=== PATIENT | female | born 1990 | race Caucasian/White ===

== ENCOUNTER 2018-01-28 01:20 | Observation (INO) | payer BC, SELFPAY ==
[2018-01-28] VITALS (15 sets, daily range): BP systolic 115–143; BP diastolic 77–94; PULSE 73–110; RESP 16–24; TEMP 36.2–36.8; O2SAT 96–100; BMI 22.1; BMI 21.6
--- NOTE | 2018-01-28 | GASB_PTH ---
PATIENT: CARMEN AQUINO LOC: MS2 U#:[id number] AGE/SX: 27/F [place] [facility] [id number]/28/[address]: Dr. Julio Fontaine MD : 1990 BED: 1 DIS: 01/30/2018 SPEC #: [id number] RECD: 01/28/18 13:35 STATUS: DEMETRICE RELaura #: [id number] MAXINE: 01/28/18 00:[address]: Rg Fletcher DEPT: SURGICAL PATHOLOGY RECD BY: Manoj Ramirez ENTERED: 01/28/18 13:36 SP TYPE: Gastric Bx OTHR DR: MD Dr. Padmini Radford MD Dr. Nicholas F Kotsonis, MD Dr. Saksham Sulove, MD Tissues: Gastric mucous membrane Procedures: Special Stain Group II Surgery Specimen Level IV Alcian Blue/PAS (control) Comments: @ Ordering doctor for SUIV edited from to @ by HEMAL at 01/28/18 1544 @ Submitting doctor edited from to @ by RGOOD at 01/28/18 1544 HEADER OPERATION: EGD ([facility] [place]) PRE-OP DIAGNOSIS: Epigastric pain TISSUE SUBMITTED: GE junction biopsy MICROSCOPIC DIAGNOSIS GE junction, biopsy: A fragment of gastroesophageal mucosa with chronic inflammation. Intestinal metaplasia (goblet cell metaplasia) is not identified. TAMEKA:michelle 01/29/18 COMMENT Alcian blue/PAS stain with matched control is used in the evaluation of the specimen. MICROSCOPIC DESCRIPTION Slides are reviewed. GROSS DESCRIPTION Received in fixative is one container labeled with the patient's name and designated GE junction biopsy. The specimen consists of one irregular fragment of light nelson soft tissue that measures 0.3 x 0.2 x 0.1 cm. The specimen is totally submitted in one cassette. / TAMEKA:michelle 01/28/18 TC:3 CPT: 33963, 23869
[2018-01-28 01:38] LABS: Absolute Lymphocyte Count 1.55 X10^3/ul (0.83-4.51); Absolute Neutrophil Count 7.6 X10^3/uL (2.0-7.7); Basophil# 0.03 X10^3/uL; Basophil% 0.3 % (0-1); Eosinophil# 0.02 X10^3/uL; Eosinophils% 0.2 % (0-5); Hematocrit 42.4 % (37-47); Hemoglobin 15.1 g/dl (12.0-15.0); Lymphocyte # 1.55 X10^3/ul (4.0); Lymphocyte % 15.9 % (19-41); Mean Corp Hgb Conc 35.6 g/gl (32-36); Mean Corpuscular Hgb 31.1 pg (27.0-32.0); Mean Corpuscular Volume 87.2 fL (81-99); Mean Platelet Vol. 9.3 fl (6.2-12.0); Monocyte# 0.59 X10^3/uL; Neutrophil # 7.56 X10^3/uL (2.7-7.7); Neutrophil % 77.5 % (47-70); POSITIVE COUNT NO; POSITIVE DIFFERENTIAL NO; POSITIVE MORPHOLOGY NO; Platelet Count 364 K/mm3 (150-450); RBC Distribution Width CV 12.7 % (11.6-14.6); RBC Distribution Width SD 39.7 fl (35.1-43.9); Red Blood Count 4.86 M/mm3 (4.2-5.4); White Blood Count 9.8 K/mm3 (4.4-11.0)
[2018-01-28 01:51] LABS: Anion Gap 15 (5-15); BUN 8 mg/dL (7-18); BUN/Creat Ratio 7.4 RATIO (10-20); Calcium,Total 9.3 mg/dL (8.5-10.1); Chloride 103 mmol/L (98-107); Creatinine, Serum 1.08 mg/dL (0.55-1.02); EST Glomerular Filtration Rate 65 mL/min (>60); Est Glom Filt Rate - Afr Amer 79 mL/min (>60); Estimated Creatinine Clearance 60.47 ml/min; Glucose 85 mg/dL (74-106); Potassium 2.9 mmol/L (3.5-5.1); Sodium Level 136 mmol/L (136-145)
[2018-01-28 01:56] LABS: Pregnancy, Serum, hCG Quali. NEGATIVE Negative (0-9 Nonpreg)
--- NOTE | 2018-01-28 01:57 | CT_ITS ---
STUDY: CT ABDOMEN AND PELVIS WITH CONTRAST REASON FOR EXAM: Female, 27 years old. UPPER ABD PAIN X 4 MONTHS, INCREASED PAIN ON FRIDAY, N/V, 30 POUND WEIGHT LOSS IN 4 MONTHS, NEG PREG TEST RADIATION DOSAGE (If Supplied By Facility): CTDIvol = ( 7.64 ) mGy, DLP = ( 237.69 ) mGycm TECHNIQUE: Transaxial images were obtained from the dome of the diaphragm to the symphysis pubis without oral contrast. 100ML ml of Isovue 300 contrast was administered. Sagittal and coronal images were reconstructed. Individualized dose optimization techniques were used for this CT. COMPARISON: None. FINDINGS: The visualized lung bases are unremarkable. The visualized portions of the heart are within normal limits. Normal liver. Normal gallbladder and extrahepatic biliary system. Normal spleen. Normal pancreas. Normal bilateral adrenal glands. Normal right kidney. Normal left kidney. Normal visualized stomach. Normal small intestine. Normal colon. There is non-visualization of the appendix. Normal abdominal aorta. Normal inferior vena cava. Normal retroperitoneum. Normal urinary bladder. Normal abdominal wall. Normal osseous structures. CT/Abdomen/Pelvis W IV Cont ONLY IMPRESSION: Normal enhanced CT of the abdomen and pelvis. Electronically Signed: Rio Torres MD at 3:22 EDT Tel , Service support ,
[2018-01-28] MEDS: 0.9% Normal Saline 1,000 ML 999 ML IV (02:10)
[2018-01-28] MEDS: Ondansetron 4 MG/2 ML Vial IV ×3 (02:10→21:53)
[2018-01-28] MEDS: Morphine 4 MG/ML Syringe IV (02:11)
[2018-01-28 02:13] LABS: Lipase 710 U/L (73-393)
[2018-01-28 02:16] LABS: AST(SGOT) 18 U/L (15-37); Alanine Aminotransfer ALT/SGPT 38 U/L (13-56); Albumin, Serum 4.3 g/dL (3.2-5.0); Alkaline Phosphatase 46 U/L (45-117); Bilirubin, Direct 0.35 mg/dL (0.00-0.30); Protein, Total 8.3 g/dL (6.4-8.2)
[2018-01-28 02:51] LABS: Bacteria 0 SEEN /hpf (None Seen); Mucous, Urine 0 SEEN /hpf (<or=2+); Red Blood Cells-Urine 0 SEEN /hpf (0-5)
[2018-01-28 02:52] LABS: Color, Urine Yellow (Yellow); Glucose, Dipstick Normal (Normal); Leukocyte Esterase-Dipstick 25 /ul (Negative); Nitrite-Dipstick Negative (Negative); Occult Blood-Urine 10 /ul (Negative); Protein-Dipstick 15 mg/dl (Negative); Urine Bilirubin Dipstick Negative (Negative); Urine Clarity Clear (Clear); Urine Urobilinogen Normal (Normal)
[2018-01-28 03:08] LABS: Ketone-Dipstick 150 mg/dl (Negative)
[2018-01-28 03:09] LABS: Squamous Epithelial Cells - UA 0-5 SEEN /hpf (5-10); White Blood Cells 0-5 SEEN /hpf (0-5)
--- NOTE | 2018-01-28 03:09 | NURSING ---
notified of ketones in urine.
--- NOTE | 2018-01-28 03:37 | ED.VISSUMM ---
- ER Visit Summary Date of Service: 01/28/18 Chief Complaint: Abdominal pain History of Present Illness: The patient is a 27 F who presents with abdominal pain. It initially began 4 months ago. She complains of burning epigastric abdominal pain with radiation up to her chest burning in her throat. She has been on omeprazole daily. She was also placed on Carafate by her primary care physician. She was recently seen at [place] emergency department and was given a GI cocktail and continued on Carafate. However over the past 5 days her pain has become severe she has also developed nausea and vomiting in the last 2 days. She reports about 4 episodes of nonbloody nonbilious emesis per day. She denies diarrhea or urinary symptoms. Physical Examination: Heart rate 106 respiratory rate 24 vitals otherwise unremarkable Moist mucous membranes Patient does appear uncomfortable Heart is regular rhythm tachycardia Lungs are clear Abdomen soft nondistended she has epigastric abdominal tenderness without guarding without rebound Alert Test Results: Labs notable for potassium 2.9. CO2 18. Total bilirubin 1.5 and direct bilirubin 0.35. Lipase is 710. Urinalysis shows ketones. CT of the abdomen and pelvis is normal. Normal gallbladder. Emergency Department Course and Treatment: Given that patient has not been improving with usual treatment and has significant reproducible epigastric abdominal tenderness I did pursue further workup including laboratory studies and CT imaging. She was treated with IV fluids morphine and Zofran. Potassium was replaced IV. She does have signs and symptoms suggestive of gastritis. Her laboratory abnormalities may be related to dehydration and decreased oral intake. She does not drink alcohol and is not not on medications known for causing pancreatitis. I do feel she should undergo further evaluation and IV hydration and symptom control. Patient was discussed with hospitalist and will be admitted. Treatment Plan: [] Disposition: Admit Impression: Epigastric abdominal pain, suspect gastritis Dehydration Hypokalemia Elevated lipase This note was generated with [employer] dictation software. It may contain incorrect words, spelling, and punctuation that were not noted in review of the chart prior to signing ED Disposition - Plan for ED Patient: Chief Complaint: Abd Pain Referrals: Everett Boo [Primary Care Provider] -
--- NOTE | 2018-01-28 03:38 | PCM.HP.STD ---
Problem List (1) Abdominal pain Status: Acute Qualifiers: Abdominal location: epigastric Qualified Code(s): R10.13 - Epigastric pain (2) Pancreatitis Status: Acute Qualifiers: Chronicity: acute Pancreatitis type: unspecified pancreatitis type Acute pancreatitis complication: unspecified Qualified Code(s): K85.90 - Acute pancreatitis without necrosis or infection, unspecified (3) Anxiety and depression Status: Chronic (4) GERD (gastroesophageal reflux disease) Status: Chronic Qualifiers: Esophagitis presence: esophagitis presence not specified Qualified Code(s): K21.9 - Gastro-esophageal reflux disease without esophagitis History of Present Illness Date of Admission: 01/28/18 Chief Complaint: Abdominal pain, N/V The patient is a 27 y/o F w/ PMHx: Anxiety and Depression, GERD who presents to the [facility] ED on 01/28/18 with history of ongoing reflux symptoms and epigastric discomfort x 1 month, progressively worsening despite PPI, sucralfate addition per her PCP, more severe over the last 4 days with associated nausea, emesis as well as 30 lb weight loss since its onset. Symptoms are worse with food intake attempts. In the ED work-up included T 98, heart rate 110, BP 124/81, respiratory rate 24, 97% on room air, CBC with WBC 9.8, hemoglobin 15.1, platelet 364 without market shift, CMP with potassium 2.9, carbon dioxide 18, BUN/creatinine 8/1.08, T bilirubin 1.5, D bilirubin 0.35, AST/ALT 18/38, lipase 710, UA no marked appearing, CT A/P with IV contrast without acute findings. In the ED the patient administered 40 mEq IV potassium, morphine, zofran and NS. She reports that she had upcoming endoscopy planned per but unclear physician (). Past Medical History Past Medical History (Chronic Problems): Chronic Problems Anxiety and depression (Chronic) GERD (gastroesophageal reflux disease) (Chronic) Allergies No Known Allergies Allergy (Verified 01/28/18 01:26) Home Medications: Ambulatory Orders Medication Instructions Recorded Lorazepam [Ativan] 0.5 mg PO PRN PRN 01/28/18 Omeprazole 40 mg PO BID 01/28/18 Ondansetron [Zofran Odt] 4 mg PO Q8H PRN PRN 01/28/18 Sucralfate 1 gm PO 4X/DAY 01/28/18 buPROPion SR [Wellbutrin SR (150mg 450 mg PO DAILY 01/28/18 tablets)] Surgical History: no surgical history Psychiatric History: Anxiety, Depression FRONT DESK MONITOR History: No pertinent FRONT DESK MONITOR history Lives: Spouse/ Significant Other Smoking Status: Never smoker Tobacco Use: Non-smoker Alcohol: None Drugs: None - *Family History Maternal History Items: - - Patient notes a maternal and paternal family history of hypertension, hyperlipidemia and diabetes. Paternal History Items: - - Patient notes a maternal and paternal family history of hypertension, hyperlipidemia and diabetes. Review of Systems Constitutional: Reports: Anorexia, Malaise, Weakness, Weight Change, Fatigue. Denies: Chills, Fever HEENT: Denies: Head Aches, Sinus Congestion, Sinus Drainage Cardiovascular: Denies: Chest Pain, Palpitations Respiratory: Denies: Cough, Shortness of breath at rest, Sputum production Gastrointestinal: Reports: Abdominal Pain, Nausea, Vomiting Genitourinary: Denies: Dysuria Musculoskeletal: Denies: Joint Pain, Joint Tenderness Skin: Denies: Rash, Wounds Neurological: Denies: Numbness, Tingling, Focal weakness Psychiatric: Reports: Anxiety, Depression. Denies: Homicidal Ideations, Suicidal Ideations Hematologic/ Lymphatic: Denies: Easy Bruising, Easy Bleeding VTE Information - Inpt Only VTE Present on Admission: No VTE Mechan Device Prophylaxis: SCD's VTE Pharm Prophylaxis ordered?: No Reason prophylaxis not ordered:: Treatment Not Indicated Patient Problems: Active and Suspected Problems Abdominal pain (Acute) Pancreatitis (Acute) Subjective: Seated upright in the ED bed, NAD. Objective: Physical Examination: General: awake, alert, oriented x 3 and cooperative, seated upright in the ED bed in no apparent distress, fatigued appearance. Skin: normal color, turgor, no icterus, cyanosis. HEENT: AT/NC, EOMI, PERRLA, dry MM, no carotid bruits or JVD noted. Lungs: CTA bilaterally, moderate effort, mild decrease BL bases, no rales, ronchi or wheezing. Heart: Regular rate and rhythm; no gallop, rub audible. Abdomen: soft, no RUQ TTP, notable epigastric TTP, ND, hyperactive BS, no HSM. Extremities: no cyanosis, clubbing, or edema. Neurological: patient awake, alert, oriented x 3; cognitive function intact; pupils equally reactive to light and accomodation; cranial nerves II-XII grossly normal, moving all 4 extremities, no focal deficits, strength mildly globally decreased. Psychiatric: affect appears normal, no acute evidence of depressive or anxiety feelings. - Physical Exam Vital Signs Temp Pulse Resp BP Pulse Ox 98.0 F 96 18 126/88 H 96 01/28/18 01:21 01/28/18 02:51 01/28/18 02:51 01/28/18 02:51 01/28/18 02:51 Oxygen Delivery Method Room Air Weight: 106 lb 0.677 oz Body Mass Index (BMI) 22.1 Laboratory Tests Past 24 Hrs 01/28/18 01/28/18 01/28/18 01:30 01:30 01:30 WBC 9.8 RBC 4.86 Hgb 15.1 H Hct 42.4 MCV 87.2 MCH 31.1 MCHC 35.6 RDW 12.7 RDW Differential 39.7 Plt Count 364 MPV 9.3 Immature Gran % (Auto) 0.100 Neut % (Auto) 77.5 H Lymph % (Auto) 15.9 L Shannon % (Auto) 6.0 Eos % (Auto) 0.2 Baso % (Auto) 0.3 Absolute Neuts (auto) 7.6 Absolute Lymphs (auto) 1.55 Total Counted Not Reportable Sodium 136 Potassium 2.9 L Chloride 103 Carbon Dioxide 18.0 L Anion Gap 15 BUN 8 Creatinine 1.08 H Estim Creat Clear Calc 60.47 Est GFR (MDRD) Af Amer 79 Est GFR (MDRD) Non-Af 65 BUN/Creatinine Ratio 7.4 L Glucose 85 Calcium 9.3 Total Bilirubin Direct Bilirubin AST ALT Alkaline Phosphatase Total Protein Albumin Globulin Lipase Serum , Qual NEGATIVE Urine Color Urine Clarity Urine pH Ur Specific [place] Urine Protein Urine Glucose (UA) Urine Ketones Urine Occult Blood Urine Nitrite Urine Bilirubin Urine Urobilinogen Ur Leukocyte Esterase Urine RBC Urine WBC Ur Squamous Epith Cells Urine Bacteria Urine Mucus 01/28/18 01/28/18 01/28/18 01:30 01:30 02:45 WBC RBC Hgb Hct MCV MCH MCHC RDW RDW Differential Plt Count MPV Immature Gran % (Auto) Neut % (Auto) Lymph % (Auto) Shannon % (Auto) Eos % (Auto) Baso % (Auto) Absolute Neuts (auto) Absolute Lymphs (auto) Total Counted Sodium Potassium Chloride Carbon Dioxide Anion Gap BUN Creatinine Estim Creat Clear Calc Est GFR (MDRD) Af Amer Est GFR (MDRD) Non-Af BUN/Creatinine Ratio Glucose Calcium Total Bilirubin 1.50 H Direct Bilirubin 0.35 H AST 18 ALT 38 Alkaline Phosphatase 46 Total Protein 8.3 H Albumin 4.3 Globulin 4.0 Lipase 710 H Serum , Qual Urine Color Yellow Urine Clarity Clear Urine pH 7.0 Ur Specific [place] 1.010 Urine Protein 15 H Urine Glucose (UA) Normal Urine Ketones 150 H Urine Occult Blood 10 H Urine Nitrite Negative Urine Bilirubin Negative Urine Urobilinogen Normal Ur Leukocyte Esterase 25 H Urine RBC 0 SEEN Urine WBC 0-5 SEEN Ur Squamous Epith Cells 0-5 SEEN Urine Bacteria 0 SEEN Urine Mucus 0 SEEN Assessment/Plan All Active Problems Abdominal pain (Acute) Pancreatitis (Acute) The patient is a 27 y/o F w/ PMHx: Anxiety and Depression, GERD who presents to the [facility] ED on 01/28/18 with history of ongoing reflux symptoms and epigastric discomfort x 1 month, progressively worsening despite PPI, sucralfate addition per her PCP, more severe over the last 4 days with assocaited nausea, emesis as well as 30 lb weight loss since its onset. (1) Acute mild pancreatitis w/ abdominal pain, N/V w/ Elevated T Bilirubin/D Bilirubin, Suspected primarily secondary to Gastritis, Possible Ulcer: ED work-up included T 98, heart rate 110, BP 124/81, respiratory rate 24, 97% on room air, CBC with WBC 9.8, hemoglobin 15.1, platelet 364 without market shift, CMP with potassium 2.9, carbon dioxide 18, BUN/creatinine 8/1.08, T bilirubin 1.5, D bilirubin 0.35, AST/ALT 18/38, lipase 710, UA no marked appearing, CT A/P with IV contrast without acute findings. Will admit to [facility], maintain on aggressive IVFs, NPO, IV PPI, IV/po pain control, trend CMP and lipase. CT A/P without acute findings; however, not best modality for GB thus will obtain RUQ US, FLP. Surgery consulted for consideration endoscopy if RUQ US unremarkable. (2) Hypokalemia: Admission K+ 2.9, supplementation given, repeat level in AM. (3) Anxiety and Depression: Continue home regimen ativan and well butrin. (4) DVT Prophylaxis: TEDs, low risk, ambulation. Code Visit OBSV E&M: 51477 Initial observation care L3
[2018-01-28] MEDS: Ketorolac 30 MG/ML Syringe IV (03:40)
--- NOTE | 2018-01-28 03:42 | ED.DCSUM_ITS ---
- ER Visit Summary Date of Service: 01/28/18 Chief Complaint: Abdominal pain History of Present Illness: The patient is a 27 F who presents with abdominal pain. It initially began 4 months ago. She complains of burning epigastric abdominal pain with radiation up to her chest burning in her throat. She has been on omeprazole daily. She was also placed on Carafate by her primary care physician. She was recently seen at [place] emergency department and was given a GI cocktail and continued on Carafate. However over the past 5 days her pain has become severe she has also developed nausea and vomiting in the last 2 days. She reports about 4 episodes of nonbloody nonbilious emesis per day. She den ies diarrhea or urinary symptoms. Physical Examination: Heart rate 106 respiratory rate 24 vitals otherwise unremarkable Moist mucous membranes Patient does appear uncomfortable Heart is regular rhythm tachycardia Lungs are clear Abdomen soft nondistended she has epigastric abdominal tenderness without guarding without rebound Alert Test Results: Labs notable for potassium 2.9. CO2 18. Total bilirubin 1.5 and direct bilirubin 0.35. Lipase is 710. Urinalysis shows ketones. CT of the abdomen and pelvis is normal. Normal gallbladder. Emergency Department Course and Treatment: Given that patient has not been improving with usual treatment and has significant reproducible epigastric abdominal tenderness I did pursue further workup including laboratory studies and CT imaging. She was treated with IV fluids morphine and Zofran. Potassium was replaced IV. She does have signs and symptoms suggestive of gastritis. Her laboratory abnormalities may be related to dehydration and decreased oral intake. She does not drink alcohol and is not not on medications known for causing pancreatitis. I do feel she should undergo further evaluation and IV hydration and symptom control. Patient was discussed with hospitalist and will be admitted. Treatment Plan: [] Disposition: Admit Impression: Epigastric abdominal pain, suspect gastritis Dehydration Hypokalemia Elevated lipase This note was generated with [employer] dictation software. It may contain incorrect words, spelling, and punctuation that were not noted in review of the chart prior to signing ED Disposition - Plan for ED Patient: Chief Complaint: Abd Pain Referrals: Everett Boo [Primary Care Provider] -
--- NOTE | 2018-01-28 04:15 | US_ITS ---
STUDY: ABDOMINAL ULTRASOUND - RIGHT UPPER QUADRANT REASON FOR VISIT: Female, 27 years old. 4 month history of sharp epigastric pain. TECHNIQUE: Ultrasound evaluation of the right upper quadrant was performed with real-time and static lima-scale imaging. TECHNICAL QUALITY: Adequate. COMPARISON: Comparison is made with prior CT scan abdomen done earlier in the day. FINDINGS: Liver: The liver measures 14.6 cm. There is normal echogenicity of the liver. The bile ducts are within normal limits. There is hepatic color flow. The direction of portal flow is hepatopetal. There is no demonstrated mass lesion. Gallbladder: Normal distended gallbladder. The gallbladder wall measures 2.5 mm. There is a negative sonographic Trammell's sign. There is no pericholecystic fluid. There are no gallstones. Common Bile Duct (C.B.D.): The common bile duct measures 4.7 mm. Pancreas: Normal size of the head, body and tail of the pancreas. There is normal echogenicity of the pancreas. There is no demonstrated pancreatic mass or cyst. Right Kidney: Normal size of the right kidney. The right kidney measures 10.1 cm x 4.6 x 3.7 cm. Normal renal cortex. The right cortex measures 1.2 cm. There is no demonstrated renal mass or cyst. There is no right hydronephrosis. US/Gallbladder IMPRESSION: Normal right upper quadrant ultrasound examination. Electronically Signed: Andrea Ordoñez MD at 8:50 EDT Tel [phone], Service support ,
[2018-01-28] MEDS: 0.9% Normal Saline 1,000 ML 150 ML IV (04:57)
[2018-01-28] MEDS: Sucralfate 1 GM Tablet PO ×4 (06:18→21:27)
[2018-01-28 06:57] LABS: Absolute Lymphocyte Count 1.45 X10^3/ul (0.83-4.51); Absolute Neutrophil Count 4.5 X10^3/uL (2.0-7.7); Basophil# 0.02 X10^3/uL; Basophil% 0.3 % (0-1); Eosinophil# 0.04 X10^3/uL; Eosinophils% 0.6 % (0-5); Hematocrit 34.3 % (37-47); Hemoglobin 11.6 g/dl (12.0-15.0); Lymphocyte # 1.45 X10^3/ul (4.0); Lymphocyte % 22.4 % (19-41); Mean Corp Hgb Conc 33.8 g/gl (32-36); Mean Corpuscular Hgb 30.4 pg (27.0-32.0); Mean Corpuscular Volume 89.8 fL (81-99); Mean Platelet Vol. 9.3 fl (6.2-12.0); Monocyte# 0.48 X10^3/uL; Monocyte% 7.4 % (0-10); Neutrophil # 4.49 X10^3/uL (2.7-7.7); Neutrophil % 69.3 % (47-70); Platelet Count 234 K/mm3 (150-450); RBC Distribution Width CV 12.9 % (11.6-14.6); RBC Distribution Width SD 41.6 fl (35.1-43.9); Red Blood Count 3.82 M/mm3 (4.2-5.4); White Blood Count 6.5 K/mm3 (4.4-11.0)
[2018-01-28 07:02] LABS: POSITIVE COUNT NO; POSITIVE DIFFERENTIAL NO; POSITIVE MORPHOLOGY NO
[2018-01-28 07:32] LABS: Cholesterol 114 mg/dL (200); High Density Lipoprotein 47 mg/dL; Triglycerides 78 mg/dL; Very Low Density Lipoprotein 16 mg/dL (5-40)
[2018-01-28 07:46] LABS: AST(SGOT) 13 U/L (15-37); Alanine Aminotransfer ALT/SGPT 26 U/L (13-56); Albumin, Serum 2.8 g/dL (3.2-5.0); Alkaline Phosphatase 32 U/L (45-117); Anion Gap 12 (5-15); BUN 5 mg/dL (7-18); BUN/Creat Ratio 6.3 RATIO (10-20); Chloride 110 mmol/L (98-107); EST Glomerular Filtration Rate 93 mL/min (>60); Est Glom Filt Rate - Afr Amer 112 mL/min (>60); Estimated Creatinine Clearance 82.31 ml/min; Globulin 2.9 g/dL (2.2-4.2); Glucose 69 mg/dL (74-106); Lipase 476 U/L (73-393); Potassium 3.5 mmol/L (3.5-5.1); Protein, Total 5.7 g/dL (6.4-8.2); Sodium Level 139 mmol/L (136-145)
--- NOTE | 2018-01-28 08:11 | NURSING ---
pt to ultrasound via w/ch
--- NOTE | 2018-01-28 10:44 | PCM.CONS.GEN ---
Problem List (1) Abdominal pain Status: Acute Qualifiers: Abdominal location: epigastric Qualified Code(s): R10.13 - Epigastric pain Reason for Consult Date of Consultation: 01/28/18 Reason for Consultation: Epigastric pain History of Present Illness: The patient is a 27 year old F who came in with epigastric pain. She has been having this pain for 4 months. She describes the pain is in her epigastric region. She has not been eating much and she has lost 30 pounds in the last 4 months. She is not having any right upper quadrant pain there is no radiation to the back. She is having nausea and vomiting as she has been vomiting a lot. She describes her vomitus is bilious. Past Medical History Past Medical History (Chronic Problems): Chronic Problems Anxiety and depression (Chronic) GERD (gastroesophageal reflux disease) (Chronic) Allergies No Known Allergies Allergy (Verified 01/28/18 01:26) Home Medications: Ambulatory Orders Medication Instructions Recorded Lorazepam [Ativan] 0.5 mg PO PRN PRN 01/28/18 Norgestimate-Ethinyl Estradiol 1 tab PO DAILY 01/28/18 [Tri-Linyah Tablet] Omeprazole 40 mg PO BID 01/28/18 Ondansetron [Zofran Odt] 4 mg PO Q8H PRN PRN 01/28/18 Sucralfate 1 gm PO 4X/DAY 01/28/18 buPROPion SR [Wellbutrin SR (150mg 450 mg PO DAILY 01/28/18 tablets)] Surgical History: no surgical history Psychiatric History: Anxiety, Depression 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 Paternal History Items: - - Patient notes a maternal and paternal family history of hypertension, hyperlipidemia and diabetes. Review of Systems Constitutional: Reports: Anorexia. Denies: Fever HEENT: Denies: Difficulty Swallowing Cardiovascular: Denies: Chest Pain Respiratory: Denies: Cough Gastrointestinal: Reports: Abdominal Pain, Nausea, Vomiting Genitourinary: Denies: Dysuria Musculoskeletal: Denies: Joint Tenderness Skin: Denies: Jaundice Neurological: Denies: Headaches, Incoordination Hematologic/ Lymphatic: Denies: Adenopathy, Anemia Patient Problems: Active and Suspected Problems Abdominal pain (Acute) Pancreatitis (Acute) - Physical Exam General: Alert, Oriented x3, Cooperative HEENT: Atraumatic Neck: No JVD Lungs: Normal air movement Cardiovascular: Regular rate, Regular Rhythm Abdomen: Soft, Non-Distended, Tender - Tender in the epigastric region Extremities: No clubbing Skin: No rashes Musculoskeletal: No Muscle Wasting Neurological: Cranial nerves II-XII grossly intact Psych/Mental Status: Normal Affect, Appropriate Vital Signs Temp Pulse Resp BP Pulse Ox 98.3 F 75 16 132/87 H 100 01/28/18 04:34 01/28/18 04:34 01/28/18 04:34 01/28/18 04:34 01/28/18 04:34 Oxygen Delivery Method Room Air Weight: 106 lb 14.787 oz Body Mass Index (BMI) 21.6 Intake and Output for Last 24 Hours 01/26/18 01/27/18 01/28/18 23:59 23:59 23:59 Intake Total 302 / 302 Balance 302 / 302 Laboratory Tests Past 24 Hrs 01/28/18 01/28/18 01/28/18 01:30 01:30 01:30 WBC 9.8 RBC 4.86 Hgb 15.1 H Hct 42.4 MCV 87.2 MCH 31.1 MCHC 35.6 RDW 12.7 RDW Differential 39.7 Plt Count 364 MPV 9.3 Immature Gran % (Auto) 0.100 Neut % (Auto) 77.5 H Lymph % (Auto) 15.9 L [place] % (Auto) 6.0 Eos % (Auto) 0.2 Baso % (Auto) 0.3 Absolute Neuts (auto) 7.6 Absolute Lymphs (auto) 1.55 Total Counted Not Reportable Sodium 136 Potassium 2.9 L Chloride 103 Carbon Dioxide 18.0 L Anion Gap 15 BUN 8 Creatinine 1.08 H Estim Creat Clear Calc 60.47 Est GFR (MDRD) Af Amer 79 Est GFR (MDRD) Non-Af 65 BUN/Creatinine Ratio 7.4 L Glucose 85 Calcium 9.3 Total Bilirubin Direct Bilirubin AST ALT Alkaline Phosphatase Total Protein Albumin Globulin Albumin/Globulin Ratio Triglycerides Cholesterol LDL Cholesterol VLDL Cholesterol HDL Cholesterol Lipase Serum , Qual NEGATIVE Urine Color Urine Clarity Urine pH Ur Specific [place] Urine Protein Urine Glucose (UA) Urine Ketones Urine Occult Blood Urine Nitrite Urine Bilirubin Urine Urobilinogen Ur Leukocyte Esterase Urine RBC Urine WBC Ur Squamous Epith Cells Urine Bacteria Urine Mucus 01/28/18 01/28/18 01/28/18 01:30 01:30 02:45 WBC RBC Hgb Hct MCV MCH MCHC RDW RDW Differential Plt Count MPV Immature Gran % (Auto) Neut % (Auto) Lymph % (Auto) [place] % (Auto) Eos % (Auto) Baso % (Auto) Absolute Neuts (auto) Absolute Lymphs (auto) Total Counted Sodium Potassium Chloride Carbon Dioxide Anion Gap BUN Creatinine Estim Creat Clear Calc Est GFR (MDRD) Af Amer Est GFR (MDRD) Non-Af BUN/Creatinine Ratio Glucose Calcium Total Bilirubin 1.50 H Direct Bilirubin 0.35 H AST 18 ALT 38 Alkaline Phosphatase 46 Total Protein 8.3 H Albumin 4.3 Globulin 4.0 Albumin/Globulin Ratio Triglycerides Cholesterol LDL Cholesterol VLDL Cholesterol HDL Cholesterol Lipase 710 H Serum , Qual Urine Color Yellow Urine Clarity Clear Urine pH 7.0 Ur Specific [place] 1.010 Urine Protein 15 H Urine Glucose (UA) Normal Urine Ketones 150 H Urine Occult Blood 10 H Urine Nitrite Negative Urine Bilirubin Negative Urine Urobilinogen Normal Ur Leukocyte Esterase 25 H Urine RBC 0 SEEN Urine WBC 0-5 SEEN Ur Squamous Epith Cells 0-5 SEEN Urine Bacteria 0 SEEN Urine Mucus 0 SEEN 01/28/18 01/28/18 01/28/18 06:44 06:44 06:44 WBC 6.5 RBC 3.82 L Hgb 11.6 L Hct 34.3 L MCV 89.8 MCH 30.4 MCHC 33.8 RDW 12.9 RDW Differential 41.6 Plt Count 234 MPV 9.3 Immature Gran % (Auto) 0.000 Neut % (Auto) 69.3 Lymph % (Auto) 22.4 [place] % (Auto) 7.4 Eos % (Auto) 0.6 Baso % (Auto) 0.3 Absolute Neuts (auto) 4.5 Absolute Lymphs (auto) 1.45 Total Counted Not Reportable Sodium 139 Potassium 3.5 Chloride 110 H Carbon Dioxide 17.0 L Anion Gap 12 BUN 5 L Creatinine 0.80 Estim Creat Clear Calc 82.31 Est GFR (MDRD) Af Amer 112 Est GFR (MDRD) Non-Af 93 BUN/Creatinine Ratio 6.3 L Glucose 69 L Calcium 7.0 L Total Bilirubin 1.00 Direct Bilirubin AST 13 L ALT 26 Alkaline Phosphatase 32 L Total Protein 5.7 L Albumin 2.8 L Globulin 2.9 Albumin/Globulin Ratio 1.0 Triglycerides 78 Cholesterol 114 LDL Cholesterol 51 VLDL Cholesterol 16 HDL Cholesterol 47 Lipase 476 H Serum , Qual Urine Color Urine Clarity Urine pH Ur Specific [place] Urine Protein Urine Glucose (UA) Urine Ketones Urine Occult Blood Urine Nitrite Urine Bilirubin Urine Urobilinogen Ur Leukocyte Esterase Urine RBC Urine WBC Ur Squamous Epith Cells Urine Bacteria Urine Mucus Clinical Impression(s) from Imaging Studies Abdomen/Pelvis CT 01/28/18 01:57 IMPRESSION: Normal enhanced CT of the abdomen and pelvis. Electronically Signed: Rio Torres MD at 3:22 EDT Tel , Service support , Gallbladder Ultrasound 01/28/18 04:15 IMPRESSION: Normal right upper quadrant ultrasound examination. Electronically Signed: Andrea Ordoñez MD at 8:50 EDT Tel [phone], Service support , Assessment/Plan All Active Problems Abdominal pain (Acute) Pancreatitis (Acute) 27-year-old female with epigastric pain 1. The patient presented in dehydration with an elevated creatinine and hemoglobin. At that time her lipase was also mildly elevate I ordered an ultrasound which showed normal gallbladder with no abnormal thickening and no gallstones. There is no pericholecystic fluid and a negative Trammell sign. The patient also had a CT scan which was essentially normal. 2. After rehydration labs were repeated and the patient's white count is normal with no left shift. Her lipase has decreased and her LFTs have normalized as well. 3. The patient is having epigastric pain and weight loss. I will perform an EGD today to rule out any malignancy or peptic ulcer disease. There is currently no evidence that this is her gallbladder but if there is possibility that it is chronic dysfunction or sphincter of Oddi dysfunction. The patient says that her vomiting has been bilious there is a chance she is having bile reflux. 4. I explained endoscopy in detail to the patient. I explained the risks including but not limited to stroke or heart attack with anesthesia, perforation of the GI tract, bleeding, infection. I explained that any of these could necessitate further emergency surgery. The patient understands and all questions were answered sufficiently. The patient wishes to proceed with procedure. Rg Fletcher MD Pager: [facility] [address] [place] [address] [address] [place] [address] Office:
--- NOTE | 2018-01-28 10:48 | CON.PCM_ITS ---
Problem List (1) Abdominal pain Status: Acute Qualifiers: Abdominal location: epigastric Qualified Code(s): R10.13 - Epigastric pain Reason for Consult Date of Consultation: 01/28/18 Reason for Consultation: Epigastric pain History of Present Illness: The patient is a 27 year old F who came in with epigastric pain. She has been having this pain for 4 months. She describes the pain is in her epigastric region. She has not been eating much and she has lost 30 pounds in the last 4 months. She is not having any right upper quadrant pain there is no radiation to the back. She is having nausea and vomiting as she has been vomiting a lot. She describes her vomitus is bilious. Past Medical History Past Medical History (Chronic Problems): Chronic Problems Anxiety and depression (Chronic) GERD (gastroesophageal reflux disease) (Chronic) Allergies No Known Allergies Allergy (Verified 01/28/18 01:26) Home Medications: Ambulatory Orders Medication Instructions Recorded Lorazepam [Ativan] 0.5 mg PO PRN PRN 01/28/18 Norgestimate-Ethinyl Estradiol 1 tab PO DAILY 01/28/18 [Tri-Linyah Tablet] Omeprazole 40 mg PO BID 01/28/18 Ondansetron [Zofran Odt] 4 mg PO Q8H PRN PRN 01/28/18 Sucralfate 1 gm PO 4X/DAY 01/28/18 buPROPion SR [Wellbutrin SR (150mg 450 mg PO DAILY 01/28/18 tablets)] Surgical History: no surgical history Psychiatric History: Anxiety, Depression 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 Paternal History Items: - - Patient notes a maternal and paternal family history of hypertension, hyperlipidemia and diabetes. Review of Systems Constitutional: Reports: Anorexia. Denies: Fever HEENT: Denies: Difficulty Swallowing Cardiovascular: Denies: Chest Pain Respiratory: Denies: Cough Gastrointestinal: Reports: Abdominal Pain, Nausea, Vomiting Genitourinary: Denies: Dysuria Musculoskeletal: Denies: Joint Tenderness Skin: Denies: Jaundice Neurological: Denies: Headaches, Incoordination Hematologic/ Lymphatic: Denies: Adenopathy, Anemia Patient Problems: Active and Suspected Problems Abdominal pain (Acute) Pancreatitis (Acute) - Physical Exam General: Alert, Oriented x3, Cooperative HEENT: Atraumatic Neck: No JVD Lungs: Normal air movement Cardiovascular: Regular rate, Regular Rhythm Abdomen: Soft, Non-Distended, Tender - Tender in the epigastric region Extremities: No clubbing Skin: No rashes Musculoskeletal: No Muscle Wasting Neurological: Cranial nerves II-XII grossly intact Psych/Mental Status: Normal Affect, Appropriate Vital Signs Temp Pulse Resp BP Pulse Ox 98.3 F 75 16 132/87 H 100 01/28/18 04:34 01/28/18 04:34 01/28/18 04:34 01/28/18 04:34 01/28/18 04:34 Oxygen Delivery Method Room Air Weight: 106 lb 14.787 oz Body Mass Index (BMI) 21.6 Intake and Output for Last 24 Hours 01/26/18 01/27/18 01/28/18 23:59 23:59 23:59 Intake Total 302 / 302 Balance 302 / 302 Laboratory Tests Past 24 Hrs 01/28/18 01/28/18 01/28/18 01:30 01:30 01:30 WBC 9.8 RBC 4.86 Hgb 15.1 H Hct 42.4 MCV 87.2 MCH 31.1 MCHC 35.6 RDW 12.7 RDW Differential 39.7 Plt Count 364 MPV 9.3 Immature Gran % (Auto) 0.100 Neut % (Auto) 77.5 H Lymph % (Auto) 15.9 L [place] % (Auto) 6.0 Eos % (Auto) 0.2 Baso % (Auto) 0.3 Absolute Neuts (auto) 7.6 Absolute Lymphs (auto) 1.55 Total Counted Not Reportable Sodium 136 Potassium 2.9 L Chloride 103 Carbon Dioxide 18.0 L Anion Gap 15 BUN 8 Creatinine 1.08 H Estim Creat Clear Calc 60.47 Est GFR (MDRD) Af Amer 79 Est GFR (MDRD) Non-Af 65 BUN/Creatinine Ratio 7.4 L Glucose 85 Calcium 9.3 Total Bilirubin Direct Bilirubin AST ALT Alkaline Phosphatase Total Protein Albumin Globulin Albumin/Globulin Ratio Triglycerides Cholesterol LDL Cholesterol VLDL Cholesterol HDL Cholesterol Lipase Serum , Qual NEGATIVE Urine Color Urine Clarity Urine pH Ur Specific [place] Urine Protein Urine Glucose (UA) Urine Ketones Urine Occult Blood Urine Nitrite Urine Bilirubin Urine Urobilinogen Ur Leukocyte Esterase Urine RBC Urine WBC Ur Squamous Epith Cells Urine Bacteria Urine Mucus 01/28/18 01/28/18 01/28/18 01:30 01:30 02:45 WBC RBC Hgb Hct MCV MCH MCHC RDW RDW Differential Plt Count MPV Immature Gran % (Auto) Neut % (Auto) Lymph % (Auto) [place] % (Auto) Eos % (Auto) Baso % (Auto) Absolute Neuts (auto) Absolute Lymphs (auto) Total Counted Sodium Potassium Chloride Carbon Dioxide Anion Gap BUN Creatinine Estim Creat Clear Calc Est GFR (MDRD) Af Amer Est GFR (MDRD) Non-Af BUN/Creatinine Ratio Glucose Calcium Total Bilirubin 1.50 H Direct Bilirubin 0.35 H AST 18 ALT 38 Alkaline Phosphatase 46 Total Protein 8.3 H Albumin 4.3 Globulin 4.0 Albumin/Globulin Ratio Triglycerides Cholesterol LDL Cholesterol VLDL Cholesterol HDL Cholesterol Lipase 710 H Serum , Qual Urine Color Yellow Urine Clarity Clear Urine pH 7.0 Ur Specific [place] 1.010 Urine Protein 15 H Urine Glucose (UA) Normal Urine Ketones 150 H Urine Occult Blood 10 H Urine Nitrite Negative Urine Bilirubin Negative Urine Urobilinogen Normal Ur Leukocyte Esterase 25 H Urine RBC 0 SEEN Urine WBC 0-5 SEEN Ur Squamous Epith Cells 0-5 SEEN Urine Bacteria 0 SEEN Urine Mucus 0 SEEN 01/28/18 01/28/18 01/28/18 06:44 06:44 06:44 WBC 6.5 RBC 3.82 L Hgb 11.6 L Hct 34.3 L MCV 89.8 MCH 30.4 MCHC 33.8 RDW 12.9 RDW Differential 41.6 Plt Count 234 MPV 9.3 Immature Gran % (Auto) 0.000 Neut % (Auto) 69.3 Lymph % (Auto) 22.4 [place] % (Auto) 7.4 Eos % (Auto) 0.6 Baso % (Auto) 0.3 Absolute Neuts (auto) 4.5 Absolute Lymphs (auto) 1.45 Total Counted Not Reportable Sodium 139 Potassium 3.5 Chloride 110 H Carbon Dioxide 17.0 L Anion Gap 12 BUN 5 L Creatinine 0.80 Estim Creat Clear Calc 82.31 Est GFR (MDRD) Af Amer 112 Est GFR (MDRD) Non-Af 93 BUN/Creatinine Ratio 6.3 L Glucose 69 L Calcium 7.0 L Total Bilirubin 1.00 Direct Bilirubin AST 13 L ALT 26 Alkaline Phosphatase 32 L Total Protein 5.7 L Albumin 2.8 L Globulin 2.9 Albumin/Globulin Ratio 1.0 Triglycerides 78 Cholesterol 114 LDL Cholesterol 51 VLDL Cholesterol 16 HDL Cholesterol 47 Lipase 476 H Serum , Qual Urine Color Urine Clarity Urine pH Ur Specific [place] Urine Protein Urine Glucose (UA) Urine Ketones Urine Occult Blood Urine Nitrite Urine Bilirubin Urine Urobilinogen Ur Leukocyte Esterase Urine RBC Urine WBC Ur Squamous Epith Cells Urine Bacteria Urine Mucus Clinical Impression(s) from Imaging Studies Abdomen/Pelvis CT 01/28/18 01:57 IMPRESSION: Normal enhanced CT of the abdomen and pelvis. Electronically Signed: Rio Torres MD at 3:22 EDT Tel , Service support , Gallbladder Ultrasound 01/28/18 04:15 IMPRESSION: Normal right upper quadrant ultrasound examination. Electronically Signed: Andrea Ordoñez MD at 8:50 EDT Tel [phone], Service support , Assessment/Plan All Active Problems Abdominal pain (Acute) Pancreatitis (Acute) 27-year-old female with epigastric pain 1. The patient presented in dehydration with an elevated creatinine and hemoglobin. At that time her lipase was also mildly elevate I ordered an ultrasound which showed normal gallbladder with no abnormal thickening and no gallstones. There is no pericholecystic fluid and a negative Trammell sign. The patient also had a CT scan which was essentially normal. 2. After rehydration labs were repeated and the patient's white count is normal with no left shift. Her lipase has decreased and her LFTs have normalized as well. 3. The patient is having epigastric pain and weight loss. I will perform an EGD today to rule out any malignancy or peptic ulcer disease. There is currently no evidence that this is her gallbladder but if there is possibility that it is chronic dysfunction or sphincter of Oddi dysfunction. The patient says that her vomiting has been bilious there is a chance she is having bile reflux. 4. I explained endoscopy in detail to the patient. I explained the risks including but not limited to stroke or heart attack with anesthesia, perforation of the GI tract, bleeding, infection. I explained that any of these could necessitate further emergency surgery. The patient understands and all questions were answered sufficiently. The patient wishes to proceed with procedure. Rg Fletcher MD Pager: [facility] [address] [place] [address] [address] [place] [address] Office:
--- NOTE | 2018-01-28 10:48 | CASEMGMT ---
RN CM Assessment Intro role of CM to patient in room. Plan is for EGD today. PCP: Dr. Boo [facility]: [facility] Prescription coverage: yes Living arrangements: lives independently with DME: none DC PLAN: home
--- NOTE | 2018-01-28 10:56 | NURSING ---
REPORT CALLED TO JOSHUA IN [facility], PT TAKEN BY BED TO OR AREA
--- NOTE | 2018-01-28 11:51 | OP.ENDO_ITS ---
Patient Name: Alison Aguilar Procedure Date: 01/28/2018 11:21 AM Date of : 1990 Age: 27 Procedure: Upper GI endoscopy Indications: Epigastric abdominal pain, Heartburn, Nausea with vomiting, Weight loss Providers: Rg Fletcher MD Medicines: Monitored Anesthesia Care Patient Profile: This is a 27 year old female. Refer to note in patient chart for documentation of history and physical. Patient has symptoms of chronic epigastric abdominal pain and chronic heartburn. Complications: No immediate complications. Estimated blood loss: Minimal. Procedure: Pre-Anesthesia Assessment: - Prior to the procedure, a History and Physical was performed, and patient medications and allergies were reviewed. The patient's tolerance of previous anesthesia was also reviewed. The risks and benefits of the procedure and the sedation options and risks were discussed with the patient. All questions were answered, and informed consent was obtained. Prior Anticoagulants: The patient has taken no previous anticoagulant or antiplatelet agents. ASA Grade Assessment: I - A normal, healthy patient. After reviewing the risks and benefits, the patient was deemed in satisfactory condition to undergo the procedure. After obtaining informed consent, the endoscope was passed under direct vision. Throughout the procedure, the patient's blood pressure, pulse, and oxygen saturations were monitored continuously. The gastroscope was introduced through the mouth, and advanced to the second part of duodenum. The upper GI endoscopy was accomplished without difficulty. The patient tolerated the procedure well. Scope In: 11:33:17 AM Scope Out: 11:39:14 AM Total Procedure Duration Time 0 hours 5 minutes 57 seconds Findings: The examined duodenum was normal. Patient had a significant amount of bile in her stomach and bile was seen actively refluxing into stomach during EGD. The Z-line was irregular. Biopsies were taken with a cold forceps for histology. Impression: - Normal examined duodenum. - Z-line irregular. Biopsied. Recommendation: - Await pathology results. - No repeat upper endoscopy. - Clear liquid diet. - Continue present medications. - Await pathology results. Procedure Code(s): --- Professional --- 02967, Esophagogastroduodenoscopy, flexible, transoral; with biopsy, single or multiple Diagnosis Code(s): --- Professional --- K22.8, Other specified diseases of esophagus R10.13, Epigastric pain R12, Heartburn R11.2, Nausea with vomiting, unspecified R63.4, Abnormal weight loss CPT copyright 2017 [employer]. All rights reserved. The codes documented in this report are preliminary and upon de icer element winder review may be revised to meet current compliance requirements. Rg Fletcher MD 01/28/2018 11:50:52 AM This report has been signed electronically. Number of Addenda: 0 Note Initiated On: 01/28/2018 11:21 AM
--- NOTE | 2018-01-28 11:51 | PCM.PN.BLA ---
Progress Note I performed an EGD on the patient. There were no active ulceration but there was a lot of bile in her stomach. The bile was even actively refluxing into her stomach during EGD. I believe this may be the cause of her gastritis. I will start her on some Actigall to see if this helps. Continue PPI. Start some clear liquids. Rg Fletcher MD Pager: [facility] [address] [place] [address] [address] [place] [address] Office:
[2018-01-28] MEDS: Ursodiol 250 MG Tablet PO ×2 (14:13→21:58)
[2018-01-28] MEDS: Morphine 2 MG/ML Syringe IV (14:13)
[2018-01-28] MEDS: buPROPion (XL) 150 MG TABLET.XL 450 MG PO (14:15)
--- NOTE | 2018-01-28 15:59 | PCM.PROGNOTE ---
<Davey Sorto - Last Filed: 01/28/18 15:59> Patient Problems: Active and Suspected Problems Abdominal pain (Acute) Pancreatitis (Acute) Subjective: Pt seen and examined prior to EGD. Still c/o midepigastric abdominal pain. Has had chronic nausea and vomiting daily. No f/c. No dizziness/LH. Recently placed on PPI and carafate by PCP for gastritis. Planned outpatient EGD. - Physical Exam General: Alert, Oriented x3, Cooperative HEENT: Atraumatic, PERRLA, EOMI, Normocephalic Neck: Supple, No JVD, Negative Carotid Bruits Lungs: Clear to auscultation, Normal air movement Cardiovascular: Regular rate, No murmurs Abdomen: Bowel Sounds Present, Soft, Tender - midepigastric Extremities: No edema, Capillary Refill Less than 3 Seconds Skin: No rashes, No breakdown Musculoskeletal: No Tenderness to Palpation of Joints or Extremities Neurological: Cranial nerves II-XII grossly intact Psych/Mental Status: Normal Affect, Appropriate Vital Signs Temp Pulse Resp BP Pulse Ox 98.0 F 80 18 143/88 H 100 01/28/18 12:50 01/28/18 12:50 01/28/18 12:50 01/28/18 12:50 01/28/18 12:50 Oxygen Delivery Method Room Air Weight: 106 lb 14.787 oz Body Mass Index (BMI) 21.6 Intake and Output for Last 24 Hours 01/26/18 01/27/18 01/28/18 23:59 23:59 23:59 Intake Total 1202 / 1202 Output Total 450 / 450 Balance 752 / 752 Laboratory Tests Past 24 Hrs 01/28/18 01/28/18 01/28/18 01:30 01:30 01:30 WBC 9.8 RBC 4.86 Hgb 15.1 H Hct 42.4 MCV 87.2 MCH 31.1 MCHC 35.6 RDW 12.7 RDW Differential 39.7 Plt Count 364 MPV 9.3 Immature Gran % (Auto) 0.100 Neut % (Auto) 77.5 H Lymph % (Auto) 15.9 L [place] % (Auto) 6.0 Eos % (Auto) 0.2 Baso % (Auto) 0.3 Absolute Neuts (auto) 7.6 Absolute Lymphs (auto) 1.55 Total Counted Not Reportable Sodium 136 Potassium 2.9 L Chloride 103 Carbon Dioxide 18.0 L Anion Gap 15 BUN 8 Creatinine 1.08 H Estim Creat Clear Calc 60.47 Est GFR (MDRD) Af Amer 79 Est GFR (MDRD) Non-Af 65 BUN/Creatinine Ratio 7.4 L Glucose 85 Calcium 9.3 Total Bilirubin Direct Bilirubin AST ALT Alkaline Phosphatase Total Protein Albumin Globulin Albumin/Globulin Ratio Triglycerides Cholesterol LDL Cholesterol VLDL Cholesterol HDL Cholesterol Lipase Serum , Qual NEGATIVE Urine Color Urine Clarity Urine pH Ur Specific [place] Urine Protein Urine Glucose (UA) Urine Ketones Urine Occult Blood Urine Nitrite Urine Bilirubin Urine Urobilinogen Ur Leukocyte Esterase Urine RBC Urine WBC Ur Squamous Epith Cells Urine Bacteria Urine Mucus 01/28/18 01/28/18 01/28/18 01:30 01:30 02:45 WBC RBC Hgb Hct MCV MCH MCHC RDW RDW Differential Plt Count MPV Immature Gran % (Auto) Neut % (Auto) Lymph % (Auto) [place] % (Auto) Eos % (Auto) Baso % (Auto) Absolute Neuts (auto) Absolute Lymphs (auto) Total Counted Sodium Potassium Chloride Carbon Dioxide Anion Gap BUN Creatinine Estim Creat Clear Calc Est GFR (MDRD) Af Amer Est GFR (MDRD) Non-Af BUN/Creatinine Ratio Glucose Calcium Total Bilirubin 1.50 H Direct Bilirubin 0.35 H AST 18 ALT 38 Alkaline Phosphatase 46 Total Protein 8.3 H Albumin 4.3 Globulin 4.0 Albumin/Globulin Ratio Triglycerides Cholesterol LDL Cholesterol VLDL Cholesterol HDL Cholesterol Lipase 710 H Serum , Qual Urine Color Yellow Urine Clarity Clear Urine pH 7.0 Ur Specific [place] 1.010 Urine Protein 15 H Urine Glucose (UA) Normal Urine Ketones 150 H Urine Occult Blood 10 H Urine Nitrite Negative Urine Bilirubin Negative Urine Urobilinogen Normal Ur Leukocyte Esterase 25 H Urine RBC 0 SEEN Urine WBC 0-5 SEEN Ur Squamous Epith Cells 0-5 SEEN Urine Bacteria 0 SEEN Urine Mucus 0 SEEN 01/28/18 01/28/18 01/28/18 06:44 06:44 06:44 WBC 6.5 RBC 3.82 L Hgb 11.6 L Hct 34.3 L MCV 89.8 MCH 30.4 MCHC 33.8 RDW 12.9 RDW Differential 41.6 Plt Count 234 MPV 9.3 Immature Gran % (Auto) 0.000 Neut % (Auto) 69.3 Lymph % (Auto) 22.4 [place] % (Auto) 7.4 Eos % (Auto) 0.6 Baso % (Auto) 0.3 Absolute Neuts (auto) 4.5 Absolute Lymphs (auto) 1.45 Total Counted Not Reportable Sodium 139 Potassium 3.5 Chloride 110 H Carbon Dioxide 17.0 L Anion Gap 12 BUN 5 L Creatinine 0.80 Estim Creat Clear Calc 82.31 Est GFR (MDRD) Af Amer 112 Est GFR (MDRD) Non-Af 93 BUN/Creatinine Ratio 6.3 L Glucose 69 L Calcium 7.0 L Total Bilirubin 1.00 Direct Bilirubin AST 13 L ALT 26 Alkaline Phosphatase 32 L Total Protein 5.7 L Albumin 2.8 L Globulin 2.9 Albumin/Globulin Ratio 1.0 Triglycerides 78 Cholesterol 114 LDL Cholesterol 51 VLDL Cholesterol 16 HDL Cholesterol 47 Lipase 476 H Serum , Qual Urine Color Urine Clarity Urine pH Ur Specific [place] Urine Protein Urine Glucose (UA) Urine Ketones Urine Occult Blood Urine Nitrite Urine Bilirubin Urine Urobilinogen Ur Leukocyte Esterase Urine RBC Urine WBC Ur Squamous Epith Cells Urine Bacteria Urine Mucus Medical Necessity - Tobacco Use Smoking Status: Never smoker Tobacco Use: Non-smoker Assessment/Plan All Active Problems Abdominal pain (Acute) Pancreatitis (Acute) 1. Gastritis - PPI (IV BID), carafate, actigall (ursodiol). Pt refluxing bile into stomach. EGD done today per Dr. Fletcher. On clear liquids now. T bili/direct bili elevated. Lipase trending down. CT abd unremarkable. GB US negative for acute cholecystitis. test neg. UA neg. Recent 30 pound weight loss. 2. Pancreatitis - unclear if this is truly acute pancreatitis. Pain likely 2/2 gastritis. Lipase down. Trigs normal. 3. Anx/depression - home meds 4. GERD - as above. DVT ppx: early ambulation. DC planning: advance diet per surgery. This patient was seen by Davey Sorto PA-C under the supervision of Doctor Minal. <Julio Fontaine F - Last Filed: 01/28/18 16:49> - Physical Exam Vital Signs Temp Pulse Resp BP Pulse Ox 98.0 F 80 18 143/88 H 100 01/28/18 12:50 01/28/18 12:50 01/28/18 12:50 01/28/18 12:50 01/28/18 12:50 Oxygen Delivery Method Room Air Weight: 106 lb 14.787 oz Body Mass Index (BMI) 21.6 Intake and Output for Last 24 Hours 01/26/18 01/27/18 01/28/18 23:59 23:59 23:59 Intake Total 1202 / 1202 Output Total 450 / 450 Balance 752 / 752 Laboratory Tests Past 24 Hrs 01/28/18 01/28/18 01/28/18 01:30 01:30 01:30 WBC 9.8 RBC 4.86 Hgb 15.1 H Hct 42.4 MCV 87.2 MCH 31.1 MCHC 35.6 RDW 12.7 RDW Differential 39.7 Plt Count 364 MPV 9.3 Immature Gran % (Auto) 0.100 Neut % (Auto) 77.5 H Lymph % (Auto) 15.9 L [place] % (Auto) 6.0 Eos % (Auto) 0.2 Baso % (Auto) 0.3 Absolute Neuts (auto) 7.6 Absolute Lymphs (auto) 1.55 Total Counted Not Reportable Sodium 136 Potassium 2.9 L Chloride 103 Carbon Dioxide 18.0 L Anion Gap 15 BUN 8 Creatinine 1.08 H Estim Creat Clear Calc 60.47 Est GFR (MDRD) Af Amer 79 Est GFR (MDRD) Non-Af 65 BUN/Creatinine Ratio 7.4 L Glucose 85 Calcium 9.3 Total Bilirubin Direct Bilirubin AST ALT Alkaline Phosphatase Total Protein Albumin Globulin Albumin/Globulin Ratio Triglycerides Cholesterol LDL Cholesterol VLDL Cholesterol HDL Cholesterol Lipase Serum , Qual NEGATIVE Urine Color Urine Clarity Urine pH Ur Specific [place] Urine Protein Urine Glucose (UA) Urine Ketones Urine Occult Blood Urine Nitrite Urine Bilirubin Urine Urobilinogen Ur Leukocyte Esterase Urine RBC Urine WBC Ur Squamous Epith Cells Urine Bacteria Urine Mucus 01/28/18 01/28/18 01/28/18 01:30 01:30 02:45 WBC RBC Hgb Hct MCV MCH MCHC RDW RDW Differential Plt Count MPV Immature Gran % (Auto) Neut % (Auto) Lymph % (Auto) [place] % (Auto) Eos % (Auto) Baso % (Auto) Absolute Neuts (auto) Absolute Lymphs (auto) Total Counted Sodium Potassium Chloride Carbon Dioxide Anion Gap BUN Creatinine Estim Creat Clear Calc Est GFR (MDRD) Af Amer Est GFR (MDRD) Non-Af BUN/Creatinine Ratio Glucose Calcium Total Bilirubin 1.50 H Direct Bilirubin 0.35 H AST 18 ALT 38 Alkaline Phosphatase 46 Total Protein 8.3 H Albumin 4.3 Globulin 4.0 Albumin/Globulin Ratio Triglycerides Cholesterol LDL Cholesterol VLDL Cholesterol HDL Cholesterol Lipase 710 H Serum , Qual Urine Color Yellow Urine Clarity Clear Urine pH 7.0 Ur Specific [place] 1.010 Urine Protein 15 H Urine Glucose (UA) Normal Urine Ketones 150 H Urine Occult Blood 10 H Urine Nitrite Negative Urine Bilirubin Negative Urine Urobilinogen Normal Ur Leukocyte Esterase 25 H Urine RBC 0 SEEN Urine WBC 0-5 SEEN Ur Squamous Epith Cells 0-5 SEEN Urine Bacteria 0 SEEN Urine Mucus 0 SEEN 01/28/18 01/28/18 01/28/18 06:44 06:44 06:44 WBC 6.5 RBC 3.82 L Hgb 11.6 L Hct 34.3 L MCV 89.8 MCH 30.4 MCHC 33.8 RDW 12.9 RDW Differential 41.6 Plt Count 234 MPV 9.3 Immature Gran % (Auto) 0.000 Neut % (Auto) 69.3 Lymph % (Auto) 22.4 [place] % (Auto) 7.4 Eos % (Auto) 0.6 Baso % (Auto) 0.3 Absolute Neuts (auto) 4.5 Absolute Lymphs (auto) 1.45 Total Counted Not Reportable Sodium 139 Potassium 3.5 Chloride 110 H Carbon Dioxide 17.0 L Anion Gap 12 BUN 5 L Creatinine 0.80 Estim Creat Clear Calc 82.31 Est GFR (MDRD) Af Amer 112 Est GFR (MDRD) Non-Af 93 BUN/Creatinine Ratio 6.3 L Glucose 69 L Calcium 7.0 L Total Bilirubin 1.00 Direct Bilirubin AST 13 L ALT 26 Alkaline Phosphatase 32 L Total Protein 5.7 L Albumin 2.8 L Globulin 2.9 Albumin/Globulin Ratio 1.0 Triglycerides 78 Cholesterol 114 LDL Cholesterol 51 VLDL Cholesterol 16 HDL Cholesterol 47 Lipase 476 H Serum , Qual Urine Color Urine Clarity Urine pH Ur Specific [place] Urine Protein Urine Glucose (UA) Urine Ketones Urine Occult Blood Urine Nitrite Urine Bilirubin Urine Urobilinogen Ur Leukocyte Esterase Urine RBC Urine WBC Ur Squamous Epith Cells Urine Bacteria Urine Mucus Code Visit Addendum: Dr. Fontaine I personally examined the patient and reviewed the chart. I agree with the above. 27-year-old female with history of anxiety, depression, GERD, presenting with abdominal pain. She has a slightly elevated lipase and an unremarkable CT scan. Underwent a right upper quadrant ultrasound which was negative for any acute cholecystitis. Surgery was consulted for an EGD which was performed today and found excessive reflux of bile into her stomach. She was continued on her PPI and started on Actigall. Will monitor overnight and decide on disposition in the morning OBS E&M: [id number] Initial observation care L2
[2018-01-28] MEDS: 0.9% NaCl Peripheral Flush Adult/Peds IV (21:53)
[2018-01-28] MEDS: Temazepam 15 MG Capsule PO (23:28)
[2018-01-29 03:30] VITALS: BP 116/85; PULSE 85; RESP 16; TEMP 36.6; O2SAT 100
[2018-01-29] MEDS: Sucralfate 1 GM Tablet PO ×4 (06:13→22:47)
[2018-01-29 06:50] LABS: Absolute Lymphocyte Count 1.42 X10^3/ul (0.83-4.51); Absolute Neutrophil Count 4.1 X10^3/uL (2.0-7.7); Basophil# 0.02 X10^3/uL; Basophil% 0.3 % (0-1); Eosinophil# 0.12 X10^3/uL; Eosinophils% 1.9 % (0-5); Hematocrit 35.4 % (37-47); Hemoglobin 11.6 g/dl (12.0-15.0); Lymphocyte # 1.42 X10^3/ul (4.0); Lymphocyte % 22.8 % (19-41); Mean Corp Hgb Conc 32.8 g/gl (32-36); Mean Corpuscular Hgb 30.1 pg (27.0-32.0); Mean Corpuscular Volume 91.9 fL (81-99); Mean Platelet Vol. 9.5 fl (6.2-12.0); Monocyte# 0.55 X10^3/uL; Monocyte% 8.8 % (0-10); Neutrophil # 4.12 X10^3/uL (2.7-7.7); Platelet Count 237 K/mm3 (150-450); RBC Distribution Width CV 13.4 % (11.6-14.6); RBC Distribution Width SD 44.5 fl (35.1-43.9); Red Blood Count 3.85 M/mm3 (4.2-5.4); White Blood Count 6.2 K/mm3 (4.4-11.0)
[2018-01-29 07:01] LABS: POSITIVE COUNT NO; POSITIVE DIFFERENTIAL NO; POSITIVE MORPHOLOGY NO
[2018-01-29 07:33] LABS: AST(SGOT) 9 U/L (15-37); Alanine Aminotransfer ALT/SGPT 28 U/L (13-56); Albumin, Serum 2.8 g/dL (3.2-5.0); Alkaline Phosphatase 35 U/L (45-117); Anion Gap 9 (5-15); BUN 1 mg/dL (7-18); BUN/Creat Ratio 1.3 RATIO (10-20); Chloride 112 mmol/L (98-107); Creatinine, Serum 0.75 mg/dL (0.55-1.02); EST Glomerular Filtration Rate 99 mL/min (>60); Est Glom Filt Rate - Afr Amer 120 mL/min (>60); Estimated Creatinine Clearance 87.79 ml/min; Globulin 2.9 g/dL (2.2-4.2); Glucose 123 mg/dL (74-106); Potassium 3.9 mmol/L (3.5-5.1); Protein, Total 5.7 g/dL (6.4-8.2); Sodium Level 142 mmol/L (136-145)
--- NOTE | 2018-01-29 08:23 | NM_ITS ---
CLINICAL: 27-year-old female with reported history of abdominal pain and nausea. RADIONUCLIDE HEPATOBILIARY SCINTIGRAPHY COMPARISON: CT of the abdomen-pelvis an abdominal ultrasound reports 01/28/2018 FINDINGS: Following the intravenous administration of 5.5 mCi of 99m Tc Mebrofenin, hepatobiliary images reveal:. 1. Relatively prompt and homogeneous radiopharmaceutical concentration is noted by a normal sized liver. No parenchymal defects are identified. 2. Gallbladder activity is identified at 12 minutes post radiopharmaceutical administration. 3. Small intestinal tract is observed at 35 minutes following tracer injection. 4. Washout of the radiopharmaceutical by the hepatic parenchyma appears qualitatively normal. The patient was administered a fatty meal (4 ounces Boost). The post fatty meal ingestion gallbladder ejection fraction calculated at 60 minutes was noted to be 25.0 % (normal greater than 30%). There is demonstrated post fatty meal duodenal-gastric reflux. NM/Hepatobilliary Img w/Pharm Int IMPRESSION: 1. ABNORMAL 99m Tc Mebrofenin hepatobiliary imaging examination with fatty meal ingestion. A. A gallbladder ejection fraction calculated to be less than 30% following the administration of an ingested fatty meal is consistent with the presence of functional hepatobiliary disease (gallbladder and/or sphincter of Oddi dyskinesia) and/or organic hepatobiliary disease (chronic acalculous cholecystitis and/or cystic duct syndrome) in patients with intermediate to high pretest probabilities of hepatobiliary illness. (Yohan and Cooper, J Nucl Med 43: 1603, 2002). B. Post fatty meal duodenal-gastric reflux is defined. Electronically Signed: Christian Milian DO at 11:43 EDT Tel , Service support ,
--- NOTE | 2018-01-29 08:29 | PN.SURG_ITS ---
Patient Problems: Active and Suspected Problems Abdominal pain (Acute) Pancreatitis (Acute) Subjective: Patient was not able to take much p.o. intake yesterday. She is still having epigastric pain. - Physical Exam General: Alert, Oriented x3, Cooperative Lungs: Normal air movement Cardiovascular: Regular rate, Regular Rhythm Abdomen: Soft, Non-Distended, Tender Vital Signs Temp Pulse Resp BP Pulse Ox 97.9 F 85 16 116/85 H 100 01/29/18 03:30 01/29/18 03:30 01/29/18 03:30 01/29/18 03:30 01/29/18 03:30 Oxygen Delivery Method Room Air Weight: 106 lb 14.787 oz Body Mass Index (BMI) 21.6 Intake and Output for Last 24 Hours 01/27/18 01/28/18 01/29/18 23:59 23:59 23:59 Intake Total 2032 / 2032 1947 / 1947 Output Total 1150 / 1150 1800 / 1800 Balance 883 / 883 147 / 147 Laboratory Tests Past 24 Hrs 01/29/18 01/29/18 06:36 06:36 WBC 6.2 RBC 3.85 L Hgb 11.6 L Hct 35.4 L MCV 91.9 MCH 30.1 MCHC 32.8 RDW 13.4 RDW Differential 44.5 H Plt Count 237 MPV 9.5 Immature Gran % (Auto) 0.200 Neut % (Auto) 66.0 Lymph % (Auto) 22.8 [place] % (Auto) 8.8 Eos % (Auto) 1.9 Baso % (Auto) 0.3 Absolute Neuts (auto) 4.1 Absolute Lymphs (auto) 1.42 Total Counted Not Reportable Sodium 142 Potassium 3.9 Chloride 112 H Carbon Dioxide 21.0 Anion Gap 9 BUN 1 L Creatinine 0.75 Estim Creat Clear Calc 87.79 Est GFR (MDRD) Af Amer 120 Est GFR (MDRD) Non-Af 99 BUN/Creatinine Ratio 1.3 L Glucose 123 H Calcium 8.0 L Total Bilirubin 0.50 AST 9 L ALT 28 Alkaline Phosphatase 35 L Total Protein 5.7 L Albumin 2.8 L Globulin 2.9 Albumin/Globulin Ratio 1.0 Medical Necessity - Tobacco Use Smoking Status: Never smoker Tobacco Use: Non-smoker Assessment/Plan All Active Problems Abdominal pain (Acute) Pancreatitis (Acute) 27-year-old female with epigastric pain 1. EGD was performed yesterday and showed bile refluxing. I started her on Actigall. I will order a HIDA test for today to rule out any gallbladder etiology. If that is normal I will start her on a regular diet and she will follow-up in 1 week after taking Actigall. If that does not work I will start her on Reglan. Rg Fletcher MD Pager: [facility] [address] [place] [address] [address] [place] [address] Office:
[2018-01-29 11:28] VITALS: BP 115/74; PULSE 85; RESP 16; TEMP 36.7; O2SAT 100
[2018-01-29] MEDS: Ursodiol 250 MG Tablet PO ×2 (11:31→17:13)
[2018-01-29] MEDS: buPROPion (XL) 150 MG TABLET.XL 450 MG PO (11:31)
--- NOTE | 2018-01-29 14:23 | PN_ITS ---
<Kinza Red - Last Filed: 01/29/18 14:23> Patient Problems: Active and Suspected Problems Abdominal pain (Acute) Pancreatitis (Acute) Subjective: Patient seen and examined. States abdominal pain is improved. Tolerating clear liquids. No other complaints. - Physical Exam General: Alert, Oriented x3, Cooperative, No apparent distress HEENT: Atraumatic, PERRLA, EOMI, Normocephalic Neck: Supple, No JVD, Negative Carotid Bruits Lungs: Clear to auscultation, Normal air movement Cardiovascular: Regular rate, Regular Rhythm, Normal S1, Normal S2, No murmurs Abdomen: Bowel Sounds Present, Soft, Non-Distended, Tender - Right upper quadrant and mid abdomen tenderness to palpation Extremities: No clubbing, No cyanosis, No edema, Capillary Refill Less than 3 Seconds Skin: No rashes, No breakdown Musculoskeletal: No Tenderness to Palpation of Joints or Extremities Neurological: Cranial nerves II-XII grossly intact, Neuro grossly intact Psych/Mental Status: Normal Affect, Appropriate Vital Signs Temp Pulse Resp BP Pulse Ox 98.1 F 85 16 115/74 100 01/29/18 11:28 01/29/18 11:28 01/29/18 11:28 01/29/18 11:28 01/29/18 11:28 Oxygen Delivery Method Room Air Weight: 106 lb 14.787 oz Body Mass Index (BMI) 21.6 Intake and Output for Last 24 Hours 01/27/18 01/28/18 01/29/18 23:59 23:59 23:59 Intake Total 2033 / 2033 2380 / 2380 Output Total 1150 / 1150 1800 / 1800 Balance 883 / 883 580 / 580 Laboratory Tests Past 24 Hrs 01/29/18 01/29/18 06:36 06:36 WBC 6.2 RBC 3.85 L Hgb 11.6 L Hct 35.4 L MCV 91.9 MCH 30.1 MCHC 32.8 RDW 13.4 RDW Differential 44.5 H Plt Count 237 MPV 9.5 Immature Gran % (Auto) 0.200 Neut % (Auto) 66.0 Lymph % (Auto) 22.8 [place] % (Auto) 8.8 Eos % (Auto) 1.9 Baso % (Auto) 0.3 Absolute Neuts (auto) 4.1 Absolute Lymphs (auto) 1.42 Total Counted Not Reportable Sodium 142 Potassium 3.9 Chloride 112 H Carbon Dioxide 21.0 Anion Gap 9 BUN 1 L Creatinine 0.75 Estim Creat Clear Calc 87.79 Est GFR (MDRD) Af Amer 120 Est GFR (MDRD) Non-Af 99 BUN/Creatinine Ratio 1.3 L Glucose 123 H Calcium 8.0 L Total Bilirubin 0.50 AST 9 L ALT 28 Alkaline Phosphatase 35 L Total Protein 5.7 L Albumin 2.8 L Globulin 2.9 Albumin/Globulin Ratio 1.0 Medical Necessity - Tobacco Use Smoking Status: Never smoker Tobacco Use: Non-smoker Assessment/Plan All Active Problems Abdominal pain (Acute) Pancreatitis (Acute) 1. Acute epigastric pain, suspected gastritis although unclear etiology. General surgery following. Started on Ursodiol. Abdominal pain improved. Tolerating clear liquid diet. Abdomen of CT and pelvis unremarkable. Gallbladder ultrasound shows normal right upper quadrant ultrasound. Patient underwent HIDA scan which was reported to be abnormal. Gallbladder ejection fraction calculated to be less than 30%. Post fatty meal duodenal gastric reflux is defined. Lipase 710 on admission, improved to 476. 2. Anxiety/depression-continue home bupropion, Ativan regimen. 3. GERD-continue omeprazole. DVT prophylaxis-not indicated due to low risk, early ambulation. This patient was seen by SHAHANA Henriquez under the supervision of Dr. Fontaine. <Julio Fontaine F - Last Filed: 01/29/18 16:21> - Physical Exam Vital Signs Temp Pulse Resp BP Pulse Ox 98.2 F 94 16 124/86 H 100 01/29/18 15:21 01/29/18 15:21 01/29/18 15:21 01/29/18 15:21 01/29/18 15:21 Oxygen Delivery Method Room Air Weight: 106 lb 14.787 oz Body Mass Index (BMI) 21.6 Intake and Output for Last 24 Hours 01/27/18 01/28/18 01/29/18 23:59 23:59 23:59 Intake Total 3 / 2033 2380 / 2380 Output Total 1150 / 1150 1800 / 1800 Balance 883 / 883 580 / 580 Laboratory Tests Past 24 Hrs 01/29/18 01/29/18 06:36 06:36 WBC 6.2 RBC 3.85 L Hgb 11.6 L Hct 35.4 L MCV 91.9 MCH 30.1 MCHC 32.8 RDW 13.4 RDW Differential 44.5 H Plt Count 237 MPV 9.5 Immature Gran % (Auto) 0.200 Neut % (Auto) 66.0 Lymph % (Auto) 22.8 [place] % (Auto) 8.8 Eos % (Auto) 1.9 Baso % (Auto) 0.3 Absolute Neuts (auto) 4.1 Absolute Lymphs (auto) 1.42 Total Counted Not Reportable Sodium 142 Potassium 3.9 Chloride 112 H Carbon Dioxide 21.0 Anion Gap 9 BUN 1 L Creatinine 0.75 Estim Creat Clear Calc 87.79 Est GFR (MDRD) Af Amer 120 Est GFR (MDRD) Non-Af 99 BUN/Creatinine Ratio 1.3 L Glucose 123 H Calcium 8.0 L Total Bilirubin 0.50 AST 9 L ALT 28 Alkaline Phosphatase 35 L Total Protein 5.7 L Albumin 2.8 L Globulin 2.9 Albumin/Globulin Ratio 1.0 Code Visit Addendum: Dr. Fontaine I personally examined the patient and reviewed the chart. I agree with the above. 27-year-old female with an acute epigastric abdominal pain initially thought to be gastritis. CT scan was negative as well as a right upper quadrant ultrasound. General surgery was consulted and an EGD which showed significant bile reflux. She was started on Actigall and had a HIDA scan today that showed a gallbladder ejection fraction less than 30%. Will keep her overnight for clears and will start her on Reglan to see if that alleviates some of the abdominal pain and bile reflux. If not then general surgery may proceed with a lap scopic cholecystectomy. OBSV E&M: [id number] Initial observation care L2
[2018-01-29] MEDS: NORGESTIMATE-ETHINYL ESTRADIOL 1 EACH TABLET PO (14:44)
[2018-01-29 15:21] VITALS: BP 124/86; PULSE 94; RESP 16; TEMP 36.8; O2SAT 100
--- NOTE | 2018-01-29 16:10 | PN_ITS ---
Progress Note Patient had a HIDA scan which showed a slightly decreased ejection fraction but she was only able to tolerate half of the lipid load to cause contraction of the gallbladder. I am unsure if this is a positive test or false positive. The HIDA also showed bile reflux. I discussed the case with my partners and we have come to the conclusion that would be prudent to try a prokinetic before taking her gallbladder out to see if this helps. I will start her on some Reglan and see if she can tolerate a regular diet. If she can tolerate a regular diet and the Reglan is helping I will continue this and have her follow-up with me. If this does not help then I would continue to laparoscopic cholecystectomy. Rg Fletcher MD Pager: [facility] [address] [place] [address] [place] [address] Office:
[2018-01-29 20:56] VITALS: BP 126/74; PULSE 81; RESP 20; TEMP 37.2; O2SAT 99
[2018-01-29] MEDS: 0.9% NaCl Peripheral Flush Adult/Peds IV (22:47)
[2018-01-29] MEDS: Temazepam 15 MG Capsule PO (22:48)
[2018-01-30 05:42] VITALS: BP 120/83; PULSE 72; RESP 16; TEMP 36.6; O2SAT 100
[2018-01-30] MEDS: Morphine 2 MG/ML Syringe IV ×2 (05:47→06:03)
[2018-01-30] MEDS: Ondansetron 4 MG/2 ML Vial IV (05:48)
[2018-01-30] MEDS: Metoclopramide 10 MG Tablet PO ×2 (06:45→12:06)
[2018-01-30] MEDS: BENZOCAINE/MENTHOL 1 LOZENGE 2 LOZENGE MUCOUS MEM (06:45)
[2018-01-30] MEDS: Sucralfate 1 GM Tablet PO ×2 (06:45→12:07)
[2018-01-30 06:58] LABS: ALB/GLOB Ratio 0.9 RATIO (0.9-2.4); AST(SGOT) 13 U/L (15-37); Alanine Aminotransfer ALT/SGPT 26 U/L (13-56); Alkaline Phosphatase 41 U/L (45-117); Anion Gap 4 (5-15); BUN 2 mg/dL (7-18); BUN/Creat Ratio 2.2 RATIO (10-20); Calcium,Total 8.3 mg/dL (8.5-10.1); Chloride 109 mmol/L (98-107); Creatinine, Serum 0.91 mg/dL (0.55-1.02); EST Glomerular Filtration Rate 80 mL/min (>60); Est Glom Filt Rate - Afr Amer 97 mL/min (>60); Estimated Creatinine Clearance 72.36 ml/min; Globulin 3.4 g/dL (2.2-4.2); Glucose 114 mg/dL (74-106); Lipase 521 U/L (73-393); Potassium 3.8 mmol/L (3.5-5.1); Protein, Total 6.4 g/dL (6.4-8.2); Sodium Level 140 mmol/L (136-145)
[2018-01-30 08:16] VITALS: BP 113/77; PULSE 63; RESP 16; TEMP 36.9; O2SAT 100
--- NOTE | 2018-01-30 08:37 | PCM.PN.SRG ---
Patient Problems: Active and Suspected Problems Abdominal pain (Acute) Pancreatitis (Acute) Subjective: The patient reports that she was having a little diarrhea last night. She describes diffuse abdominal pain this morning radiating to the back. - Physical Exam General: Alert, Oriented x3, Cooperative Lungs: Normal air movement Cardiovascular: Regular rate, Regular Rhythm Abdomen: Soft, Non-Distended, Tender - Epigastric tenderness Vital Signs Temp Pulse Resp BP Pulse Ox 98.4 F 63 16 113/77 100 01/30/18 08:16 01/30/18 08:16 01/30/18 08:16 01/30/18 08:16 01/30/18 08:16 Oxygen Delivery Method Room Air Weight: 106 lb 14.787 oz Body Mass Index (BMI) 21.6 Intake and Output for Last 24 Hours 01/28/18 01/29/18 01/30/18 23:59 23:59 23:59 Intake Total 203 / 2033 3511 / 3511 1878 / 1878 Output Total 1150 / 1150 1800 / 1800 850 / 850 Balance 883 / 883 1711 / 1711 1028 / 1028 Laboratory Tests Past 24 Hrs 01/30/18 05:45 Sodium 140 Potassium 3.8 Chloride 109 H Carbon Dioxide 27.0 Anion Gap 4 L BUN 2 L Creatinine 0.91 Estim Creat Clear Calc 72.36 Est GFR (MDRD) Af Amer 97 Est GFR (MDRD) Non-Af 80 BUN/Creatinine Ratio 2.2 L Glucose 114 H Calcium 8.3 L Total Bilirubin 0.50 AST 13 L ALT 26 Alkaline Phosphatase 41 L Total Protein 6.4 Albumin 3.0 L Globulin 3.4 Albumin/Globulin Ratio 0.9 Lipase 521 H Medical Necessity - Tobacco Use Smoking Status: Never smoker Tobacco Use: Non-smoker Assessment/Plan All Active Problems Abdominal pain (Acute) Pancreatitis (Acute) 27-year-old female with epigastric pain and nausea 1. The patient had a HIDA exam yesterday. The HIDA exam showed decreased ejection fraction but she was unable to take the lipid load to cause her gallbladder to squeeze. I am unsure if this is a false positive or if she actually has biliary dyskinesia. The HIDA scan also did show bile reflux which is abnormal. I started the patient on Reglan to promote motility. Continue PPI. I will see how she tolerates regular diet today with the Reglan in place. If she tolerates the diet she can be discharged and follow-up with me next week. If she does not tolerate diet we would consider cholecystectomy. Rg Fletcher MD Pager: [facility] [address] [place] [address] [address] [place] [phone] Office:
--- NOTE | 2018-01-30 08:41 | PN.SURG_ITS ---
Patient Problems: Active and Suspected Problems Abdominal pain (Acute) Pancreatitis (Acute) Subjective: The patient reports that she was having a little diarrhea last night. She describes diffuse abdominal pain this morning radiating to the back. - Physical Exam General: Alert, Oriented x3, Cooperative Lungs: Normal air movement Cardiovascular: Regular rate, Regular Rhythm Abdomen: Soft, Non-Distended, Tender - Epigastric tenderness Vital Signs Temp Pulse Resp BP Pulse Ox 98.4 F 63 16 113/77 100 01/30/18 08:16 01/30/18 08:16 01/30/18 08:16 01/30/18 08:16 01/30/18 08:16 Oxygen Delivery Method Room Air Weight: 106 lb 14.787 oz Body Mass Index (BMI) 21.6 Intake and Output for Last 24 Hours 01/28/18 01/29/18 01/30/18 23:59 23:59 23:59 Intake Total 203 / 2033 3511 / 3511 1878 / 1878 Output Total 1150 / 1150 1800 / 1800 850 / 850 Balance 883 / 883 1711 / 1711 1028 / 1028 Laboratory Tests Past 24 Hrs 01/30/18 05:45 Sodium 140 Potassium 3.8 Chloride 109 H Carbon Dioxide 27.0 Anion Gap 4 L BUN 2 L Creatinine 0.91 Estim Creat Clear Calc 72.36 Est GFR (MDRD) Af Amer 97 Est GFR (MDRD) Non-Af 80 BUN/Creatinine Ratio 2.2 L Glucose 114 H Calcium 8.3 L Total Bilirubin 0.50 AST 13 L ALT 26 Alkaline Phosphatase 41 L Total Protein 6.4 Albumin 3.0 L Globulin 3.4 Albumin/Globulin Ratio 0.9 Lipase 521 H Medical Necessity - Tobacco Use Smoking Status: Never smoker Tobacco Use: Non-smoker Assessment/Plan All Active Problems Abdominal pain (Acute) Pancreatitis (Acute) 27-year-old female with epigastric pain and nausea 1. The patient had a HIDA exam yesterday. The HIDA exam showed decreased ejection fraction but she was unable to take the lipid load to cause her gallbladder to squeeze. I am unsure if this is a false positive or if she actually has biliary dyskinesia. The HIDA scan also did show bile reflux which is abnormal. I started the patient on Reglan to promote motility. Continue PPI. I will see how she tolerates regular diet today with the Reglan in place. If she tolerates the diet she can be discharged and follow-up with me next week. If she does not tolerate diet we would consider cholecystectomy. Rg Fletcher MD Pager: [facility] [address] [place] [address] [address] [place] [phone] Office:
[2018-01-30] MEDS: Ursodiol 250 MG Tablet PO ×2 (09:32→12:08)
[2018-01-30] MEDS: NORGESTIMATE-ETHINYL ESTRADIOL 1 EACH TABLET PO (09:32)
[2018-01-30] MEDS: buPROPion (XL) 150 MG TABLET.XL 450 MG PO (09:32)
--- NOTE | 2018-01-30 11:19 | PCM.PROGNOTE ---
<Kinza Red - Last Filed: 01/30/18 11:28> Patient Problems: Active and Suspected Problems Abdominal pain (Acute) Pancreatitis (Acute) Subjective: Patient seen and examined. Complains of increased abdominal pain which began early this morning. Denies nausea, vomiting. Reports small amount of diarrhea overnight. - Physical Exam General: Alert, Oriented x3, Cooperative, No apparent distress HEENT: Atraumatic, PERRLA, EOMI, Normocephalic Neck: Supple, No JVD, Negative Carotid Bruits Lungs: Clear to auscultation, Normal air movement Cardiovascular: Regular rate, Regular Rhythm, Normal S1, Normal S2, No murmurs Abdomen: Bowel Sounds Present, Soft, Non-Distended, Tender - Generalized tenderness to palpation Extremities: No clubbing, No cyanosis, No edema, Capillary Refill Less than 3 Seconds Skin: No rashes, No breakdown Musculoskeletal: No Tenderness to Palpation of Joints or Extremities Neurological: Cranial nerves II-XII grossly intact, Neuro grossly intact Psych/Mental Status: Normal Affect, Appropriate Vital Signs Temp Pulse Resp BP Pulse Ox 98.4 F 63 16 113/77 100 01/30/18 08:16 01/30/18 08:16 01/30/18 08:16 01/30/18 08:16 01/30/18 08:16 Oxygen Delivery Method Room Air Weight: 106 lb 14.787 oz Body Mass Index (BMI) 21.6 Intake and Output for Last 24 Hours 01/28/18 01/29/18 01/30/18 23:59 23:59 23:59 Intake Total 2032 / 3 3511 / 3511 1878 / 1878 Output Total 1150 / 1150 1800 / 1800 850 / 850 Balance 883 / 883 1711 / 1711 1028 / 1028 Laboratory Tests Past 24 Hrs 01/30/18 05:45 Sodium 140 Potassium 3.8 Chloride 109 H Carbon Dioxide 27.0 Anion Gap 4 L BUN 2 L Creatinine 0.91 Estim Creat Clear Calc 72.36 Est GFR (MDRD) Af Amer 97 Est GFR (MDRD) Non-Af 80 BUN/Creatinine Ratio 2.2 L Glucose 114 H Calcium 8.3 L Total Bilirubin 0.50 AST 13 L ALT 26 Alkaline Phosphatase 41 L Total Protein 6.4 Albumin 3.0 L Globulin 3.4 Albumin/Globulin Ratio 0.9 Lipase 521 H Medical Necessity - Tobacco Use Smoking Status: Never smoker Tobacco Use: Non-smoker Assessment/Plan All Active Problems Abdominal pain (Acute) Pancreatitis (Acute) 1. Acute epigastric pain, suspected gastritis although unclear etiology. General surgery following. Started on Ursodiol and reglan. Abdominal pain increased this morning. Abdomen of CT and pelvis unremarkable. Gallbladder ultrasound shows normal right upper quadrant ultrasound. Patient underwent HIDA scan which was reported to be abnormal. Gallbladder ejection fraction calculated to be less than 30%. Post fatty meal duodenal gastric reflux is defined. Lipase 710 on admission, improved to 521. Dr. Fletcher following, if she tolerates diet with addition of Reglan, she may be discharged later today. If she is not able to tolerate diet possible cholecystectomy. Continue to monitor. 2. Anxiety/depression-continue home bupropion, Ativan regimen. 3. GERD-continue omeprazole. DVT prophylaxis-not indicated due to low risk, early ambulation. This patient was seen by SHAHANA Henriquez under the supervision of Dr. Fontaine. <Julio Fontaine F - Last Filed: 01/30/18 14:32> - Physical Exam Vital Signs Temp Pulse Resp BP Pulse Ox 98.4 F 63 16 113/77 100 01/30/18 08:16 01/30/18 08:16 01/30/18 08:16 01/30/18 08:16 01/30/18 08:16 Oxygen Delivery Method Room Air Weight: 106 lb 14.787 oz Body Mass Index (BMI) 21.6 Intake and Output for Last 24 Hours 01/28/18 01/29/18 01/30/18 23:59 23:59 23:59 Intake Total 2032 / 2033 3511 / 3511 3377 / 3377 Output Total 1150 / 1150 1800 / 1800 850 / 850 Balance 883 / 883 1711 / 1711 2527 / 2527 Laboratory Tests Past 24 Hrs 01/30/18 05:45 Sodium 140 Potassium 3.8 Chloride 109 H Carbon Dioxide 27.0 Anion Gap 4 L BUN 2 L Creatinine 0.91 Estim Creat Clear Calc 72.36 Est GFR (MDRD) Af Amer 97 Est GFR (MDRD) Non-Af 80 BUN/Creatinine Ratio 2.2 L Glucose 114 H Calcium 8.3 L Total Bilirubin 0.50 AST 13 L ALT 26 Alkaline Phosphatase 41 L Total Protein 6.4 Albumin 3.0 L Globulin 3.4 Albumin/Globulin Ratio 0.9 Lipase 521 H Code Visit Addendum: Dr. Fontaine I personally examined the patient and reviewed the chart. I agree with the above. 27-year-old female with an acute epigastric abdominal pain initially thought to be gastritis. CT scan was negative as well as a right upper quadrant ultrasound. General surgery was consulted and had an EGD which showed significant bile reflux. She was started on Actigall and had a HIDA scan yesterday which demonstrated an ejection fraction less than 30%. She did have abdominal pain again today and so the plan is to continue her on Reglan and see if she is able to tolerate a regular diet throughout the day today. If she is able to that she can be discharged with outpatient follow-up with general surgery however if she is unable to tolerate diet then we may need to consider a cholecystectomy during this admission. I appreciate general surgery's assistance in this case. OBSV E&M: [id number] Initial observation care L2
[2018-01-30 14:50] VITALS: BP 120/72; PULSE 75; RESP 16; TEMP 36.7; O2SAT 96
--- NOTE | 2018-01-30 14:50 | DCINST_ITS ---
- Discharge Diagnoses Current Active Problems: Current Active and Chronic Problems Abdominal pain (Acute) Pancreatitis (Acute) Anxiety and depression (Chronic) GERD (gastroesophageal reflux disease) (Chronic) You will use the following diet at home:: No restrictions Discharge Activity: Return to Normal Activity Call your doctor if you observe: Fever of 101 or Higher, Inability to urinate, Inability to have a bowel movement Allergies/Adverse Reactions: Allergies No Known Allergies Allergy (Verified 01/28/18 01:26) Medications to take at Discharge Lorazepam [Ativan] 0.5 mg PO PRN PRN 01/28/18 Norgestimate-Ethinyl Estradiol [Tri-Linyah Tablet] 1 tab PO DAILY 01/28/18 Omeprazole 40 mg PO BID 01/28/18 Ondansetron [Zofran Odt] 4 mg PO Q8H PRN PRN 01/28/18 Sucralfate 1 gm PO 4X/DAY 01/28/18 buPROPion SR [Wellbutrin SR (150mg tablets)] 450 mg PO DAILY 01/28/18 Metoclopramide [Reglan] 5 mg PO TIDAC 30 Days #50 tablet 01/30/18 Ursodiol [Berny] 125 mg PO TIDCM 30 Days #50 tablet 01/30/18 The following prescriptions were given: Metoclopramide [Reglan] 5 mg PO TIDAC 30 Days #50 tablet Ursodiol [Berny] 125 mg PO TIDCM 30 Days #50 tablet Primary Care Physician: Everett Boo [Primary Care Provider] - Please follow up with your Primary Care Physician in: 1 Week Test Results: Test results from this visit will be discussed in further detail at your follow- up appointment, if applicable. Please Follow Up With: Rg Fletcher MD When: Next week, call for appt Proposed Discharge Date: 01/30/18
--- NOTE | 2018-01-30 14:51 | PCM.DC.SUM ---
<Kinza Red - Last Filed: 01/30/18 15:02> Discharge Date and Diagnosis Date of Admission: 01/28/18 Date of Discharge: 01/30/18 - Primary Discharge Diagnosis Active and Suspected Problems 1. Acute epigastric pain, suspected gastritis 2. Mild elevated lipase, do not suspect acute pancreatitis - Secondary Discharge Diagnosis Chronic Problems Anxiety and depression (Chronic) GERD (gastroesophageal reflux disease) (Chronic) Hospital Course and Treatment Imaging Results: Diagnostic Data Abdomen/Pelvis CT 01/28/18 01:57 IMPRESSION: Normal enhanced CT of the abdomen and pelvis. Electronically Signed: Rio Torres MD at 3:22 EDT Tel , Service support , Gallbladder Ultrasound 01/28/18 04:15 IMPRESSION: Normal right upper quadrant ultrasound examination. Electronically Signed: Andrea Ordoñez MD at 8:50 EDT Tel [phone], Service support , Hepatobiliary Scan Nuclear Medicine 01/29/18 08:23 IMPRESSION: 1. ABNORMAL 99m Tc Mebrofenin hepatobiliary imaging examination with fatty meal ingestion. A. A gallbladder ejection fraction calculated to be less than 30% following the administration of an ingested fatty meal is consistent with the presence of functional hepatobiliary disease (gallbladder and/or sphincter of Oddi dyskinesia) and/or organic hepatobiliary disease (chronic acalculous cholecystitis and/or cystic duct syndrome) in patients with intermediate to high pretest probabilities of hepatobiliary illness. (Yohan and Cooper, J Nucl Med 43: 1603, 2002). B. Post fatty meal duodenal-gastric reflux is defined. Electronically Signed: Christian Milian DO at 11:43 EDT Tel , Service support , Dr. Fletcher- Surgery Operations: None Procedures: EGD, - - HIDA scan, gallbladder US Summary of Care Provided: The patient is a 27 year old F admitted 01/28/2018 due to abdominal pain, nausea and vomiting. She has a past medical history of anxiety, depression, GERD. 1. Acute epigastric pain, suspected gastritis although unclear etiology. General surgery following. Started on Ursodiol and reglan. Abdomen of CT and pelvis unremarkable. Gallbladder ultrasound shows normal right upper quadrant ultrasound. Patient underwent HIDA scan which was reported to be abnormal. Gallbladder ejection fraction calculated to be less than 30%. Post fatty meal duodenal gastric reflux is defined. Lipase 710 on admission, improved to 521. Patient tolerating diet. Patient will continue ursodiol and Reglan at discharge and follow-up with Dr. Fletcher next week. 2. Anxiety/depression-continue home bupropion, Ativan regimen. 3. GERD-continue omeprazole. General: Alert, Oriented x3, Cooperative, No apparent distress HEENT: Atraumatic, PERRLA, EOMI, Normocephalic Neck: Supple, No JVD, Negative Carotid Bruits Lungs: Clear to auscultation, Normal air movement Cardiovascular: Regular rate, Regular Rhythm, Normal S1, Normal S2, No murmurs Abdomen: Bowel Sounds Present, Soft, Non-Distended, Tender - Generalized tenderness to palpation Extremities: No clubbing, No cyanosis, No edema, Capillary Refill Less than 3 Seconds Skin: No rashes, No breakdown Musculoskeletal: No Tenderness to Palpation of Joints or Extremities Neurological: Cranial nerves II-XII grossly intact, Neuro grossly intact Psych/Mental Status: Normal Affect, Appropriate Patient seen exam prior to discharge. Physical assessment as noted above. Patient stable for discharge home with the follow-up her conditions as noted above. This patient was seen by SHAHANA Henriquez under the supervision of Dr. Fontaine. - Physical Exam Vital Signs Temp Pulse Resp BP Pulse Ox 98.4 F 63 16 113/77 100 01/30/18 08:16 01/30/18 08:16 01/30/18 08:16 01/30/18 08:16 01/30/18 08:16 Oxygen Delivery Method Room Air Weight: 106 lb 14.787 oz Body Mass Index (BMI) 21.6 Intake and Output for Last 24 Hours 01/28/18 01/29/18 01/30/18 23:59 23:59 23:59 Intake Total 2032 / 2033 3511 / 3511 3377 / 3377 Output Total 1150 / 1150 1800 / 1800 850 / 850 Balance 883 / 883 1711 / 1711 2527 / 2527 Laboratory Tests Past 24 Hrs 01/30/18 05:45 Sodium 140 Potassium 3.8 Chloride 109 H Carbon Dioxide 27.0 Anion Gap 4 L BUN 2 L Creatinine 0.91 Estim Creat Clear Calc 72.36 Est GFR (MDRD) Af Amer 97 Est GFR (MDRD) Non-Af 80 BUN/Creatinine Ratio 2.2 L Glucose 114 H Calcium 8.3 L Total Bilirubin 0.50 AST 13 L ALT 26 Alkaline Phosphatase 41 L Total Protein 6.4 Albumin 3.0 L Globulin 3.4 Albumin/Globulin Ratio 0.9 Lipase 521 H Discharge Diet: No Restrictions Discharge Activity: Return to Normal Activity Call your doctor if you observe: Fever of 101 or Higher, Inability to urinate, Inability to have a bowel movement Home Medications: Medications to take at Discharge Lorazepam [Ativan] 0.5 mg PO PRN PRN 01/28/18 Norgestimate-Ethinyl Estradiol [Tri-Linyah Tablet] 1 tab PO DAILY 01/28/18 Omeprazole 40 mg PO BID 01/28/18 Ondansetron [Zofran Odt] 4 mg PO Q8H PRN PRN 01/28/18 Sucralfate 1 gm PO 4X/DAY 01/28/18 buPROPion SR [Wellbutrin SR (150mg tablets)] 450 mg PO DAILY 01/28/18 Metoclopramide [Reglan] 5 mg PO TIDAC 30 Days #50 tablet 01/30/18 Ursodiol [Berny] 125 mg PO TIDCM 30 Days #50 tablet 01/30/18 Following Prescrptions Were Given to Patient: Metoclopramide [Reglan] 5 mg PO TIDAC 30 Days #50 tablet Ursodiol [Berny] 125 mg PO TIDCM 30 Days #50 tablet Primary Care Physician: Everett Boo [Primary Care Provider] - Please follow up with your Primary Care Physician in: 1 Week Please Follow Up With: Rg Fletcher MD When: Next week, call for appt Disposition: Home Minutes spent on discharge:: 35 Patient Condition:: Stable Medical Necessity - Tobacco Use Smoking Status: Never smoker Tobacco Use: Non-smoker Meaningful Use Info Meaningful Use Diagnoses (Choose all that apply): None applicable <Julio Fontaine - Last Filed: 01/30/18 17:28> Discharge Date and Diagnosis - Secondary Discharge Diagnosis Chronic Problems Anxiety and depression (Chronic) GERD (gastroesophageal reflux disease) (Chronic) Hospital Course and Treatment Summary of Care Provided: The patient is a 27 year old F [] - Physical Exam Vital Signs Temp Pulse Resp BP Pulse Ox 98.1 F 75 16 120/72 96 01/30/18 14:50 01/30/18 14:50 01/30/18 14:50 01/30/18 14:50 01/30/18 14:50 Oxygen Delivery Method Room Air Weight: 106 lb 14.787 oz Body Mass Index (BMI) 21.6 Intake and Output for Last 24 Hours 01/28/18 01/29/18 01/30/18 23:59 23:59 23:59 Intake Total 2032 / 3 3511 / 3511 3377 / 3377 Output Total 1150 / 1150 1800 / 1800 850 / 850 Balance 883 / 883 1711 / 1711 2527 / 2527 Laboratory Tests Past 24 Hrs 01/30/18 05:45 Sodium 140 Potassium 3.8 Chloride 109 H Carbon Dioxide 27.0 Anion Gap 4 L BUN 2 L Creatinine 0.91 Estim Creat Clear Calc 72.36 Est GFR (MDRD) Af Amer 97 Est GFR (MDRD) Non-Af 80 BUN/Creatinine Ratio 2.2 L Glucose 114 H Calcium 8.3 L Total Bilirubin 0.50 AST 13 L ALT 26 Alkaline Phosphatase 41 L Total Protein 6.4 Albumin 3.0 L Globulin 3.4 Albumin/Globulin Ratio 0.9 Lipase 521 H Code Visit Addendum: Dr. Fontaine I personally examined the patient and reviewed the chart. I agree with the above. 27-year-old female with an acute epigastric abdominal pain initially thought to be gastritis/possibly pancreatitis. CT scan and lipase were both within normal limits. Right upper quadrant ultrasound was also normal. General surgery was consulted and an EGD was performed which showed significant bile reflux. She was started on Actigall and had a HIDA scan which demonstrated an ejection fraction less than 30%. She did have abdominal pain on the morning of discharge, however by mid afternoon she was able to tolerate a regular diet (meatball sub) with the Reglan. She was having some diarrhea so her Reglan Reglan was decreased from 10 mg 3 times daily to 5 mg 3 times daily. She is to follow-up with general surgery in 1 week. I appreciate general surgery's assistance in this case. OBSV E&M: [id number] Observation care discharge
--- NOTE | 2018-01-30 15:23 | CASEMGMT ---
RN CM Note: [facility]- no insurance card scanned, unable to process scripts through insurance. Intro role of CM to patient and her mother. Prescription coverage is under Mother's ins. Card copied and faxed to [facility]. Rhina DIAZ RN ACM
== END 2018-01-30 15:47 | disposition home or self-care (01) ==
LOC: ED 02:02 → MS2 04:02
PROVIDERS: Nurse Practitioner Family; Surgery; Admitting Provider Family Medicine; Emergency Provider Emergency Medicine; Family Provider Internal Medicine; PCP Internal Medicine; Visit Provider Family Medicine
PROC: 0DJ08ZZ Inspection of Upper Intestinal Tract, Via Natural or Artificial Opening Endoscopic (ICD-10-PCS; CPT 43235; principal; 2018-01-28 11:25)
DX: R10.13 Epigastric pain (principal); R74.8 Abnormal levels of other serum enzymes; F41.9 Anxiety disorder, unspecified; F32.9 Major depressive disorder, single episode, unspecified; K21.9 Gastro-esophageal reflux disease without esophagitis; Z79.899 Other long term (current) drug therapy; R11.2 Nausea with vomiting, unspecified; E87.6 Hypokalemia; E86.0 Dehydration; R63.4 Abnormal weight loss; Z68.21 Body mass index [BMI] 21.0-21.9, adult
CPT/HCPCS: 43239; 36415; 74177; 76705; 78227; 80048; 80053; 80061; 80076; 81001; 83690; 84703; 85025; 88305; 88313; 96361; 96365; 96366; 96375; 96376; 97802; 99218; 99282; A9537; J7030; Q9967; A4216; G0378; J2405

== ENCOUNTER → 2018-02-05 10:01 | Outpatient (CLI) | payer BC, SELFPAY ==
--- NOTE | 2018-02-05 10:03 | NM_ITS ---
CLINICAL: 27-year-old female with reported history of abdominal pain and nausea. RADIONUCLIDE HEPATOBILIARY SCINTIGRAPHY COMPARISON: Previous fatty meal hepatobiliary scintigraphy study dated 01/29/2018 (the patient did not completely tolerate ingestion of the fatty meal on the prior examination). FINDINGS: Following the intravenous administration of 5.2 mCi of 99m Tc Mebrofenin, hepatobiliary images reveal: 1. Relatively prompt and homogeneous radiopharmaceutical concentration is noted by a normal sized liver. No parenchymal defects are identified. 2. Gallbladder activity is identified at 15 minutes post radiopharmaceutical administration. 3. Small intestinal tract is observed at 15 minutes following tracer injection. 4. Washout of the radiopharmaceutical by the hepatic parenchyma appears qualitatively normal. The patient was administered a fatty meal (8 ounces BOOST-30 grams fat). The post fatty meal consumption gallbladder ejection fraction calculated at 60 minutes was noted to be 48.0 % (normal greater than 30%). AR/Hepatobilliary Img w/Pharm Int IMPRESSION: 1. NORMAL 99m Tc Mebrofenin hepatobiliary imaging examination with fatty meal ingestion. A. A gallbladder ejection fraction calculated to be greater than 30% following the administration of a consumed fatty meal makes the probability of functional hepatobiliary disease (gallbladder and/or sphincter of Oddi dyskinesia) and/or organic hepatobiliary disease (chronic acalculous cholecystitis and/or cystic duct syndrome) to be low. (Yohan and Cooper, J Nucl Med 43: 1603, 2002). B. Overall compared to the previous fatty meal hepatobiliary scintigraphy study dated 01/29/2018, there is current demonstration of a normal gallbladder physiologic response to fatty meal ingestion with no evidence of duodenal-gastric reflux on the present evaluation. Electronically Signed: Christian Milian DO at 22:37 EDT Tel , Service support ,
== END ==
PROVIDERS: Family Provider Internal Medicine; PCP Internal Medicine; Referring Provider Surgery; Visit Provider Surgery
DX: R10.13 Epigastric pain (principal)
CPT/HCPCS: 78227; A9537

== ENCOUNTER 2018-02-07 20:58 | Emergency (ER) | payer BC, SELFPAY ==
[2018-02-07 20:59] VITALS: BP 138/91; PULSE 102; PULSE 114; RESP 18; TEMP 36.9; O2SAT 100; BMI 21.2
[2018-02-07] MEDS: Morphine 4 MG/ML Syringe IV (21:49)
[2018-02-07] MEDS: Ondansetron 4 MG/2 ML Vial IV (21:49)
[2018-02-07 21:57] LABS: Absolute Lymphocyte Count 2.23 X10^3/ul (0.83-4.51); Absolute Neutrophil Count 5.7 X10^3/uL (2.0-7.7); Basophil# 0.03 X10^3/uL; Basophil% 0.4 % (0-1); Eosinophil# 0.04 X10^3/uL; Eosinophils% 0.5 % (0-5); Hematocrit 38.7 % (37-47); Hemoglobin 12.8 g/dl (12.0-15.0); Lymphocyte # 2.23 X10^3/ul (4.0); Lymphocyte % 26.5 % (19-41); Mean Corp Hgb Conc 33.1 g/gl (32-36); Mean Corpuscular Volume 90.8 fL (81-99); Mean Platelet Vol. 9.3 fl (6.2-12.0); Monocyte# 0.44 X10^3/uL; Monocyte% 5.2 % (0-10); Neutrophil # 5.68 X10^3/uL (2.7-7.7); Neutrophil % 67.4 % (47-70); Platelet Count 370 K/mm3 (150-450); RBC Distribution Width SD 42.9 fl (35.1-43.9); Red Blood Count 4.26 M/mm3 (4.2-5.4); White Blood Count 8.4 K/mm3 (4.4-11.0)
[2018-02-07 22:00] LABS: POSITIVE COUNT NO; POSITIVE DIFFERENTIAL NO; POSITIVE MORPHOLOGY NO
[2018-02-07 22:04] LABS: AST(SGOT) 50 U/L (15-37); Alanine Aminotransfer ALT/SGPT 165 U/L (13-56); Albumin, Serum 3.8 g/dL (3.2-5.0); Alkaline Phosphatase 44 U/L (45-117); Anion Gap 9 (5-15); BUN 13 mg/dL (7-18); BUN/Creat Ratio 14.6 RATIO (10-20); Bilirubin, Direct 0.17 mg/dL (0.00-0.30); Calcium,Total 8.9 mg/dL (8.5-10.1); Chloride 105 mmol/L (98-107); Creatinine, Serum 0.89 mg/dL (0.55-1.02); EST Glomerular Filtration Rate 82 mL/min (>60); Est Glom Filt Rate - Afr Amer 99 mL/min (>60); Estimated Creatinine Clearance 72.65 ml/min; Globulin 3.9 g/dL (2.2-4.2); Glucose 78 mg/dL (74-106); Lipase 419 U/L (73-393); Potassium 3.4 mmol/L (3.5-5.1); Protein, Total 7.7 g/dL (6.4-8.2); Sodium Level 137 mmol/L (136-145)
[2018-02-07 22:32] LABS: Pregnancy, Serum, hCG Quali. NEGATIVE Negative (0-9 Nonpreg)
--- NOTE | 2018-02-07 23:06 | ED.DEP ---
ED Disposition - Plan for ED Patient: Chief Complaint: Abd Pain Instructions: ED Abdominal Pain Unkn Cause Prescriptions: Ondansetron [Zofran Odt] 4 mg PO Q8H PRN PRN #10 tablet PRN Reason: Nausea Dicyclomine HCl [Bentyl] 20 mg PO TIDAC #20 capsule Referrals: Everett Boo [Primary Care Provider] - Jer Machado MD [NON-STAFF] -
--- NOTE | 2018-02-07 23:16 | ED.DCSUM_ITS ---
- ER Visit Summary Date of Service: 02/07/18 Chief Complaint: Abdominal pain History of Present Illness: The patient is a 27 F presenting with abdominal pain. Patient states that this has been ongoing for the past 5 months. She has had intermittent pain. She was hospitalized from January 28 to January 30, 2018. She had elevated lipase during that admission. She had a HIDA scan which was abnormal but felt to likely be a false positive. She was started on Reglan and ursodiol. She states that she has had nausea which is improved with Zofran. She was unable to tolerate Reglan. She was able to eat mac & cheese earlier today. She denies fever. Denies diarrhea or constipation. Denies urinary com plaints. She had a repeat HIDA scan on 02/05/2018 which was normal. Physical Examination: Vitals are stable. Patient is afebrile. Alert no acute distress. HEENT exam is unremarkable. Neck is supple. Lungs are clear and equal bilaterally. Heart is regular rate and rhythm. Abdomen is soft epigastric tenderness with no rebound or guarding Extremities are unremarkable. Skin is warm and dry. Remainder of exam is unremarkable. Emergency Department Course and Treatment: Patient is given morphine, Zofran. CBC, chemistries unremarkable. Alk phos 44, ALT 165, AST 50, lipase 419. HCG negative. Findings were discussed with Dr. Sierra who also discussed her care with Dr. Fletcher because he saw her while she was in the hospital. Her results were reviewed. They recommend follow-up with GI. Patient is given Dr. Machado for follow-up. She is given a prescription for Bentyl and Zofran. She is advised to return to ED if any worsening complaints. Disposition: Discharge home Impression: Abdominal pain This note was generated with [facility] dictation software. It may contain incorrect words, spelling, and punctuation that were not noted in review of the chart prior to signing ED Disposition - Plan for ED Patient: Chief Complaint: Abd Pain Instructions: ED Abdominal Pain Unkn Cause Prescriptions: Ondansetron [Zofran Odt] 4 mg PO Q8H PRN PRN #10 tablet PRN Reason: Nausea Dicyclomine HCl [Bentyl] 20 mg PO TIDAC #20 capsule Referrals: Everett Boo [Primary Care Provider] - Jer Machado MD [NON-STAFF] -
[2018-02-07 23:32] VITALS: BP 118/85; PULSE 75; RESP 18; O2SAT 100
== END 2018-02-07 23:33 | disposition home or self-care (01) ==
LOC: ED 21:23
PROVIDERS: Emergency Provider Emergency Medicine; Family Provider Internal Medicine; PCP Internal Medicine
DX: R10.9 Unspecified abdominal pain (principal); R11.2 Nausea with vomiting, unspecified
CPT/HCPCS: 80048; 80076; 83690; 84703; 85025; 96374; 96375; 99283; J7050; A4216; J2405

== ENCOUNTER 2018-04-04 06:05 | Emergency (ER) | payer BC, SELFPAY ==
[2018-04-04 06:06] VITALS: BP 134/85; PULSE 106; RESP 16; TEMP 36.7; O2SAT 100; BMI 19.3
--- NOTE | 2018-04-04 06:40 | RAD_ITS ---
HISTORY: CONSTIPATION AND GENERALIZED ABDOMINAL PAIN EXAM: Abdomen acute series with chest. 3 views. COMPARISON: CT abdomen and pelvis 01/28/2018 FINDINGS: No free intraperitoneal air. Constipation pattern with large fecal residue within the colon. The small bowel is nondistended. Multiple pelvic phleboliths. No soft tissue mass or organomegaly. An accompanying PA view of the chest shows no definite acute disease. Obscuration of the right heart border and this appears secondary to pectus excavatum deformity evident by CT scan. RAD/Acute Abdomen Inc Chest IMPRESSION: 1. Constipation pattern. No acute abdominal disease identified. 2. Pectus excavatum deformity. No definite acute chest disease. at [id number] Reported and signed by: Rigo Britt MD Electronically Signed: Rigo Britt, at 7:03 EST Tel , Service support ,
--- NOTE | 2018-04-04 06:55 | ED.DCSUM_ITS ---
- ER Visit Summary Date of Service: 04/04/18 Chief Complaint: Constipation issues History of Present Illness: The patient is a 27 F who presents with constipation. She has been having problems with chronic abdominal pain for at least 7 months. She has had multiple recent ER visits. I recently saw her and admitted her. At that time she was found to have gastritis and had mild elevation of her lipase. She had a surgical consult, right upper quadrant ultrasound, EGD, HIDA scan. Ultimately it was felt that this was due to reflux and gastritis. She states that she has had chronic constipation during this time as well although it has been increased particularly over the last 3 weeks. She states she is only passing small hard stools. She has had intermittent nausea and vomiting for 7 months. No fevers. She has seen gastroenterology and was advised to take MiraLAX which she is taking daily but still has constipation. Physical Examination: Afebrile heart rate 106 vitals otherwise normal Moist mucous membranes Heart regular rhythm slightly tachycardic Lungs are clear Abdomen soft nondistended she does have some diffuse nonfocal abdominal tenderness but no guarding no rebound Alert Test Results: Abdominal series on my review shows no evidence of obstruction it does show large amount of stool. Emergency Department Course and Treatment: Patient has no evidence of bowel obstruction. We discussed further home care for constipation. She was advised to increase her MiraLAX. We also discussed that she could take magnesium citrate or administer an enema herself at home. She is agreeable to this plan. She understands to return for new or worsening symptoms. Patient discharged. Treatment Plan: [] Disposition: Discharge Impression: Constipation This note was generated with [employer] dictation software. It may contain incorrect words, spelling, and punctuation that were not noted in review of the chart prior to signing ED Disposition - Plan for ED Patient: Chief Complaint: Constipation Referrals: Care Physician,No Primary [Primary Care Provider] -
--- NOTE | 2018-04-04 06:55 | ED.DEP ---
ED Disposition - Plan for ED Patient: Chief Complaint: Constipation Instructions: ED Constipation Referrals: Care Physician,No Primary [Primary Care Provider] -
[2018-04-04 07:07] VITALS: RESP 16
== END 2018-04-04 07:12 | disposition home or self-care (01) ==
PROVIDERS: Emergency Provider Emergency Medicine
DX: K59.00 Constipation, unspecified (principal); R11.2 Nausea with vomiting, unspecified; R10.9 Unspecified abdominal pain; G89.29 Other chronic pain; F41.9 Anxiety disorder, unspecified
CPT/HCPCS: 74022; 99282

== ENCOUNTER → 2018-05-21 11:15 | Outpatient (CLI) | payer MEDICAID, SELFPAY ==
[2018-05-21 12:07] VITALS: BP 124/42; PULSE 113; RESP 18; TEMP 36.4; O2SAT 100; BMI 20.5
[2018-05-21] MEDS: Ondansetron 4 MG/2 ML Vial IV (12:07)
[2018-05-21 12:08] LABS: Absolute Lymphocyte Count 1.45 X10^3/ul (0.83-4.51); Absolute Neutrophil Count 10.2 X10^3/uL (2.0-7.7); Basophil# 0.01 X10^3/uL; Basophil% 0.1 % (0-1); Hematocrit 39.5 % (37-47); Hemoglobin 13.4 g/dl (12.0-15.0); Lymphocyte # 1.45 X10^3/ul (4.0); Lymphocyte % 11.8 % (19-41); Mean Corp Hgb Conc 33.9 g/gl (32-36); Mean Corpuscular Hgb 30.2 pg (27.0-32.0); Mean Corpuscular Volume 89.2 fL (81-99); Mean Platelet Vol. 8.7 fl (6.2-12.0); Monocyte# 0.54 X10^3/uL; Monocyte% 4.4 % (0-10); Neutrophil # 10.21 X10^3/uL (2.7-7.7); Neutrophil % 83.5 % (47-70); Platelet Count 339 K/mm3 (150-450); RBC Distribution Width CV 12.6 % (11.6-14.6); RBC Distribution Width SD 40.6 fl (35.1-43.9); Red Blood Count 4.43 M/mm3 (4.2-5.4); White Blood Count 12.2 K/mm3 (4.4-11.0)
[2018-05-21 12:11] LABS: POSITIVE COUNT NO; POSITIVE DIFFERENTIAL NO; POSITIVE MORPHOLOGY NO
[2018-05-21] MEDS: Dextrose 5%-Lactated Ringers 1,000 ML 1000 ML IV (12:15)
[2018-05-21] MEDS: proMETHazine 25 MG/ML Syringe 12.5 MG IV (13:17)
--- NOTE | 2018-05-21 14:02 | NURSING ---
PT REPORTS NOT FEELING ANY BETTER, PT CALLED OFFICE WHO RECOMMENDED SHE GO TO ED. ED WAS CALLED AND NURSE GIVEN REPORT, PT TRANSPORTED TO ED VIA WHEELCHAIR IN STABLE CONDITION
== END ==
PROVIDERS: Visit Provider Nurse Practitioner Women's Health
DX: E86.0 Dehydration (principal); R11.2 Nausea with vomiting, unspecified
CPT/HCPCS: 96361 ×2; 96374; 96375; 85025; A4216; J2405

== ENCOUNTER 2018-05-21 14:06 | Observation (INO) | payer MEDICAID, SELFPAY ==
[2018-05-21 12:07] VITALS: BMI 20.5
[2018-05-21 14:06] VITALS: BP 123/70; PULSE 110; RESP 18; TEMP 37.4; O2SAT 99; BMI 20.2
[2018-05-21 15:52] VITALS: BP 118/76; PULSE 94; RESP 14; O2SAT 99
--- NOTE | 2018-05-21 16:03 | US_ITS ---
STUDY: FIRST TRIMESTER OBSTETRICAL ULTRASOUND REASON FOR EXAM: Female, 28 years old. Emesis and cramping LMP: TECHNIQUE: Transvaginal TECHNICAL QUALITY: Adequate. PRIOR ULTRASOUND: None. FINDINGS: There is visualization of a single gestational sac in a normal intrauterine position. The mean sac diameter (MSD) measures 9.7 mm, indicating an estimated gestational age (EGA) of 5 weeks, 5 days. The gestational sac shape is within normal limits. There is a visualized yolk sac. The yolk sac measures 2.6 mm. The placenta is non-visualized. pole not visualized at this time The estimated gestation age (EGA) by LMP is 6 weeks, 2 days. The estimated date of delivery (EMANUEL) by LMP is January 12, 2019. The estimated gestation age (EGA) by US is 5 weeks, 5 days. The estimated date of delivery (EMANUEL) by US is January 16, 2019. The uterus measures 8.3 x 4.7 x 4 cm. There is no demonstrated uterine fibroid. The cervix is closed. The right ovary measures 3 x 1.7 1.6 cm. There is no right ovarian cyst. There is no visualized right adnexal mass or complex lesion. The left ovary measures 3.3 x 2.4 x 1.96 cm. There is a small cyst measuring 2.3 x 2.1 x 1.4 cm There is no visualized left adnexal mass or complex lesion. There is no fluid in the cul de sac. US/Transvaginal w/Preg US IMPRESSION: Early intrauterine gestation without pole at this time approximately 5-6 weeks gestational age. Small left ovarian cyst likely corpus luteum. Electronically Signed: Remy Aragon MD at 19:11 EST , Service support ,
--- NOTE | 2018-05-21 16:04 | US_ITS ---
STUDY: Right upper quadrant ULTRASOUND REASON FOR EXAM: Female, 28 years old. Nausea and vomiting TECHNIQUE: Right upper quadrant ultrasound was performed with real-time and static lima scale imaging. TECHNICAL QUALITY: Adequate. COMPARISON: None. FINDINGS: Liver: The liver measures 14.7 cm. There is normal echogenicity of the liver. The bile ducts are within normal limits. There is hepatic color flow. The direction of portal flow is hepatopetal. There is no demonstrated mass lesion. Portal vein measurement: Gallbladder: Normal distended gallbladder. The gallbladder wall measures 1.4 mm. There is a negative sonographic Trammell's sign. There is no pericholecystic fluid. There are no gallstones. Common Bile Duct (C.B.D.): The common bile duct measures 3.2 mm. Pancreas: Normal size of the head, body and tail of the pancreas. There is normal echogenicity of the pancreas. There is no demonstrated pancreatic mass or cyst. Right Kidney: Normal size of the right kidney. The right kidney measures 10.1 x 4.5 x 3.2 cm. Normal renal cortex. The right cortex measures 1.2 cm. There is no demonstrated renal mass or cyst. There is no right hydronephrosis. I US/Gallbladder IMPRESSION: Normal right upper quadrant ultrasound examination. Electronically Signed: Remy Aragon MD at 19:06 EST , Service support ,
--- NOTE | 2018-05-21 16:06 | ED.VISSUMM ---
- ER Visit Summary Date of Service: 05/21/18 Chief Complaint: [] Reportedly 6 weeks intractable vomiting today history of bile reflux element History of Present Illness: The patient is a 28 F [] patient reports 6 weeks missed menstrual cycle for May, she indicates she took 3 home test or positive, she had vomiting x10 today stomach content, no blood no diarrhea no fever no cough no abdominal pain, she has a prior history of acid reflux and or bile reflux has been evaluated for this by Dr. Freed, she has had ultrasounds and HIDA scans and EGD scopes that showed what she described as bile reflux she then had a study at [facility] which she believes was an emptying study which was normal, she indicates she has had 2 HIDA scans that she believes were normal Had no contact to sick individuals or tainted food or antibiotics. She had no fever no cough no abdominal pain or vaginal bleeding she was seen and treated at the [facility] with 1 L of fluid she continued to have nausea and was sent to the emergency department by Dr. Carlos Diez her SPRAY II PAINTER who she has not seen yet Physical Examination: [] aFebrile General, no distress resting comfortably HEENT is generally unremarkable The neck is supple no adenopathy Cardiovascular, regular rate and rhythm Lungs, clear bilateral Abdomen, soft nontender Extremities, no clubbing cyanosis or edema Neurologic, awake alert answering questions appropriately moving all 4 extremities Test Results: [] Emergency Department Course and Treatment: [] All the above screening studies are obtained ultrasounds IV fluids hyperemesis protocol discussed with pharmacy Treatment Plan: [] Patient screening lab right upper quadrant ultrasound, METAL TURNER pelvic ultrasound unremarkable but a 6-week sac no pole urine unremarkable, the patient's been medicated and treated she continues states she feels very nauseated I spoke with Dr. Carlos Diez who asked the patient be sent to the [facility] II PA[facility] labor and delivery unit for further observation and management discussed with the patient she agrees Disposition: [] Sent to SPRAY II PAINTER labor and delivery unit Impression: [] Intractable nausea and vomiting, early This note was generated with [employer]ation software. It may contain incorrect words, spelling, and punctuation that were not noted in review of the chart prior to signing ED Disposition - Plan for ED Patient: Referrals: Care Physician,No Primary [NON-STAFF] -
--- NOTE | 2018-05-21 16:09 | ED.DCSUM_ITS ---
- ER Visit Summary Date of Service: 05/21/18 Chief Complaint: [] Reportedly 6 weeks intractable vomiting today history of bile reflux element History of Present Illness: The patient is a 28 F [] patient reports 6 weeks missed menstrual cycle for May, she indicates she took 3 home preg arnulfo test or positive, she had vomiting x10 today stomach content, no blood no diarrhea no fever no cough no abdominal pain, she has a prior history of acid reflux and or bile reflux has been evaluated for this by Dr. Freed, she has had ultrasounds and HIDA scans and EGD scopes that showed what she described as bile reflux she then had a study at [facility] which she believes was an emptying study which was normal, she indicates she has had 2 HIDA scans that she believes were normal Had no contact to sick individuals or tainted food or antibiotics. She had no fever no cough no abdominal pain or vaginal bleeding she was seen and treated at the infusion center with 1 L of fluid she continued to have nausea and was sent to the emergency department by Dr. Carlos Diez her WHITE SIDEWALL TIRE BUFFER who she has not seen yet Physical Examination: [] aFebrile General, no distress resting comfortably HEENT is generally unremarkable The neck is supple no adenopathy Cardiovascular, regular rate and rhythm Lungs, clear bilateral Abdomen, soft nontender Extremities, no clubbing cyanosis or edema Neurologic, awake alert answering questions appropriately moving all 4 extremiti es Test Results: [] Emergency Department Course and Treatment: [] All the above screening studies are obtained ultrasounds IV fluids hyperemesis protocol discussed with pharmacy Treatment Plan: [] Patient screening lab right upper quadrant ultrasound, AVIONICS SAFETY INSPECTOR pelvic ultrasound unremarkable but a 6-week sac no pole urine unremarkable, the patient's been medicated and treated she continues states she feels very nauseated I spoke with Dr. Carlos Diez who asked the patient be sent to the WHITE SIDEWALL TIRE BUFFER labor and delivery unit for further observation and management discussed with the patient she agrees Disposition: [] Sent to WHITE SIDEWALL TIRE BUFFER labor and delivery unit Impression: [] Intractable nausea and vomiting, early This note was generated with [employer] software. It may contain incorrect words, spelling, and punctuation that were not noted in review of the chart prior to signing ED Disposition - Plan for ED Patient: Referrals: Care Physician,No Primary [NON-STAFF] -
[2018-05-21] MEDS: Lactated Ringers 1,000 ML 999 ML IV (16:35)
[2018-05-21] MEDS: Ondansetron 4 MG/2 ML Vial IV (16:44)
[2018-05-21 16:46] LABS: Mucous, Urine 0 SEEN /hpf (<or=2+); Red Blood Cells-Urine 0 SEEN /hpf (0-5); White Blood Cells 0 SEEN /hpf (0-5)
[2018-05-21 16:49] LABS: Color, Urine Yellow (Yellow); Glucose, Dipstick 100 mg/dl (Normal); Ketone-Dipstick 5 mg/dl (Negative); Leukocyte Esterase-Dipstick Negative /ul (Negative); Nitrite-Dipstick Negative (Negative); Occult Blood-Urine Negative /ul (Negative); Protein-Dipstick Negative (Negative); Specific Gravity, Urine 1.015 (1.002-1.030); Urine Bilirubin Dipstick Negative (Negative); Urine Clarity Clear (Clear); Urine Urobilinogen Normal (Normal)
[2018-05-21] MEDS: Cyanocobalamin 500 MCG Tablet PO (16:50)
[2018-05-21] MEDS: Pyridoxine HCl 100 MG Tablet PO (16:50)
[2018-05-21 16:55] LABS: Bacteria 1+ /hpf (None Seen); Squamous Epithelial Cells - UA 0-5 SEEN /hpf (5-10)
[2018-05-21 16:57] LABS: Absolute Lymphocyte Count 1.54 X10^3/ul (0.83-4.51); Basophil# 0.02 X10^3/uL; Basophil% 0.1 % (0-1); Hematocrit 38.5 % (37-47); Lymphocyte # 1.54 X10^3/ul (4.0); Lymphocyte % 11.5 % (19-41); Mean Corp Hgb Conc 33.8 g/gl (32-36); Mean Corpuscular Hgb 30.4 pg (27.0-32.0); Mean Corpuscular Volume 90.2 fL (81-99); Monocyte# 0.82 X10^3/uL; Monocyte% 6.1 % (0-10); Neutrophil # 10.98 X10^3/uL (2.7-7.7); Neutrophil % 82.1 % (47-70); Platelet Count 335 K/mm3 (150-450); RBC Distribution Width CV 12.8 % (11.6-14.6); RBC Distribution Width SD 41.5 fl (35.1-43.9); Red Blood Count 4.27 M/mm3 (4.2-5.4); White Blood Count 13.4 K/mm3 (4.4-11.0)
[2018-05-21 16:59] LABS: POSITIVE COUNT NO; POSITIVE DIFFERENTIAL NO; POSITIVE MORPHOLOGY NO
[2018-05-21 17:08] LABS: AST(SGOT) 17 U/L (15-37); Alanine Aminotransfer ALT/SGPT 32 U/L (13-56); Albumin, Serum 3.7 g/dL (3.2-5.0); Alkaline Phosphatase 42 U/L (45-117); Anion Gap 9 (5-15); BUN 9 mg/dL (7-18); Bilirubin, Direct 0.21 mg/dL (0.00-0.30); Calcium,Total 8.9 mg/dL (8.5-10.1); Chloride 110 mmol/L (98-107); Creatinine, Serum 0.69 mg/dL (0.55-1.02); EST Glomerular Filtration Rate 109 mL/min (>60); Est Glom Filt Rate - Afr Amer 132 mL/min (>60); Estimated Creatinine Clearance 88.47 ml/min; Globulin 3.5 g/dL (2.2-4.2); Glucose 71 mg/dL (74-106); Lipase 162 U/L (73-393); Protein, Total 7.2 g/dL (6.4-8.2); Sodium Level 143 mmol/L (136-145)
[2018-05-21 18:08] LABS: Pregnancy, Serum, hCG Quali. POSITIVE Negative (0-9 Nonpreg)
[2018-05-21 18:12] LABS: hCG Titer Quant., Serum 15961 mIU/mL (<9 non-preg)
[2018-05-21 18:21] VITALS: BP 116/78; PULSE 125; RESP 39; O2SAT 96
--- NOTE | 2018-05-21 19:56 | DCINST.ED_ITS ---
ED Disposition - Plan for ED Patient: Instructions: ED Nausea Vomiting Referrals: Care Physician,No Primary [NON-STAFF] - Additional Instructions: To [facility] STUDENT LOAN COUNSELOR unit for further management today
--- NOTE | 2018-05-21 19:56 | ED.DEP ---
ED Disposition - Plan for ED Patient: Instructions: ED Nausea Vomiting Referrals: Care Physician,No Primary [NON-STAFF] - Additional Instructions: To [facility] TOP KNITTER unit for further management today
[2018-05-21 20:26] VITALS: BP 110/72; PULSE 84; RESP 14; O2SAT 98
[2018-05-21 22:38] VITALS: BMI 21.2
[2018-05-21 23:17] VITALS: BP 110/61; PULSE 77; RESP 16; TEMP 36.9; O2SAT 97
[2018-05-21 23:30] VITALS: PULSE 77; RESP 16; O2SAT 97
[2018-05-22] MEDS: 0.9% NaCl Peripheral Flush Adult/Peds IV (00:12)
[2018-05-22] MEDS: proCHLORPERazine 10 MG/2 ML Vial IV ×2 (00:54→06:54)
[2018-05-22 05:31] VITALS: BP 107/51; PULSE 72; RESP 16; TEMP 37; O2SAT 98
[2018-05-22 07:03] LABS: Hematocrit 32.9 % (37-47); Hemoglobin 11.2 g/dl (12.0-15.0); Mean Corpuscular Hgb 31.6 pg (27.0-32.0); Mean Corpuscular Volume 92.9 fL (81-99); Mean Platelet Vol. 9.2 fl (6.2-12.0); Platelet Count 297 K/mm3 (150-450); RBC Distribution Width CV 12.8 % (11.6-14.6); Red Blood Count 3.54 M/mm3 (4.2-5.4); Scan Indicated on CBC? Y/N NO
[2018-05-22 07:11] LABS: BUN 8 mg/dL (7-18); Creatinine, Serum 0.66 mg/dL (0.55-1.02); Estimated Creatinine Clearance 97.06 ml/min; Glucose 112 mg/dL (74-106)
[2018-05-22 07:12] LABS: Anion Gap 9 (5-15); BUN/Creat Ratio 12.1 RATIO (10-20); Calcium,Total 7.8 mg/dL (8.5-10.1); Chloride 110 mmol/L (98-107); EST Glomerular Filtration Rate 115 mL/min (>60); Est Glom Filt Rate - Afr Amer 139 mL/min (>60); Potassium 3.5 mmol/L (3.5-5.1); Sodium Level 142 mmol/L (136-145)
[2018-05-22 07:43] VITALS: BP 115/61; PULSE 81; RESP 18; TEMP 36.7; O2SAT 98
--- NOTE | 2018-05-22 11:07 | HP.PCM_ITS ---
- Problem List (1) Hyperemesis Status: Acute History Date of Admission: 01/28/18 History of this : This is a 28 year-old, , at 6 weeks gestational age presents with intractable nausea and vomiting. she had received IVFs from the infusion suite and still felt sick so was sent through the ER, didn't have any emesis but didn't feel comfortable going home. US of the abdomen and fetus were done and were reassruing. she denie sany vb or discharge. Allergies No Known Allergies Allergy (Verified 05/21/18 14:09) Home Medications: Home Medications Pnv No.95/Ferrous Fum/Folic AC [ Formula] 1 each PO DAILY 05/21/18 RX: Citalopram Hydrobromide [Citalopram HBr] 40 mg PO DAILY 05/21/18 Ondansetron HCl [Zofran] 4 mg PO 4X/DAY PRN PRN #60 tablet 05/22/18 Prochlorperazine Maleate [Compazine] 10 mg PO 4X/DAY 30 Days #120 tablet 05/22/18 Smoking Status: Never smoker Alcohol: None Number of Fetus(es): 1 History Past Pregnancies: Past Pregnancies Delivery Date Name GA/Weeks Outcome Route Weight Infant Gender Labor Length Anesthesia Delivery Location Provider FOB Review of Systems Constitutional: Reports: Anorexia, Malaise. Denies: Fever Eyes: Denies: Blurred vision, Vision Change HEENT: Denies: Head Aches, Visual Changes Cardiovascular: Denies: Chest Pain, Palpitations Respiratory: Denies: Cough, Shortness of Breath, Wheezing Gastrointestinal: Reports: Nausea, Vomiting. Denies: Diarrhea Genitourinary: Denies: Dysuria, Hematuria Musculoskeletal: Denies: Joint Pain, Muscle pain Skin: Denies: Lesions, Rash Neurological: Denies: Blurred vision, Focal weakness, Headaches Psychiatric: Denies: Anxiety, Depression Endocrine: Denies: Heat/ Cold Intolerance Hematologic/ Lymphatic: Denies: Easy Bruising, Easy Bleeding Physical Exam Vitals: Vital Signs Temp Pulse Resp BP Pulse Ox 98.0 F 81 18 115/61 98 05/22/18 07:43 05/22/18 07:43 05/22/18 07:43 05/22/18 07:43 05/22/18 07:43 General: Alert, Cooperative, No apparent distress HEENT: Atraumatic, Normocephalic. Negative for: Thyromegaly, Lymphadenopathy Cardiovascular: Regular rate Lungs: Normal air movement Abdomen: Soft, Non Tender Neurological: Deep Tendon Reflexes 2+/4 and Symmetrical, Neuro grossly intact. Negative for: Clonus PANTOGRAPH MACHINE OPERATOR: Normal external genitalia. Negative for: Vulvar lesions Estimated gestational size: Appropriate for gestational size Presentation: Cephalic Assessment/Plan All Active Problems Hyperemesis (Acute) Abdominal pain (Acute) Pancreatitis (Acute) This is a 28 year-old, at 6 weeks gestational age presents with hyperemesis admit for IVFs and iv antiemetics- dc home when tolerating adequate po. iup seen viable fu for new ob visit in the office
[2018-05-22] MEDS: proCHLORPERazine 5 MG Tablet 10 MG PO (13:22)
[2018-05-22 15:42] VITALS: BP 123/76; PULSE 80; RESP 18; TEMP 37; O2SAT 98
--- NOTE | 2018-05-22 15:53 | PCM.DC ---
You will use the following diet at home:: No restrictions Your food should be the consistency of: Regular Discharge Activity: Return to Normal Activity, May Drive Weight Bearing Status: Full weight bearing Call your doctor if you observe: Fever of 101 or Higher, Inability to urinate, Shortness of breath, Fainting spells, Chest pain Instructions: ED Nausea Vomiting Allergies/Adverse Reactions: Allergies No Known Allergies Allergy (Verified 05/21/18 14:09) Medications to take at Discharge Citalopram Hydrobromide [Citalopram HBr] 40 mg PO DAILY 05/21/18 Pnv No.95/Ferrous Fum/Folic AC [ Formula] 1 each PO DAILY 05/21/18 Ondansetron HCl [Zofran] 4 mg PO 4X/DAY PRN PRN #60 tablet 05/22/18 Prochlorperazine Maleate [Compazine] 10 mg PO 4X/DAY 30 Days #120 tablet 05/22/18 The following prescriptions were given: Ondansetron HCl [Zofran] 4 mg PO 4X/DAY PRN PRN #60 tablet PRN Reason: Nausea Prochlorperazine Maleate [Compazine] 10 mg PO 4X/DAY 30 Days #120 tablet Primary Care Physician: Care Physician,No Primary [NON-STAFF] - Test Results: Test results from this visit will be discussed in further detail at your follow-up appointment, if applicable.
[2018-05-22 16:10] VITALS: BP 123/76; PULSE 80; RESP 18; TEMP 37; O2SAT 98
== END 2018-05-22 16:12 | disposition home or self-care (01) ==
LOC: ED 21:33 → MS3 05-22 06:15
PROVIDERS: Admitting Provider Obstetrics & Gynecology; Emergency Provider Emergency Medicine; Family Provider Physician Assistant Medical; PCP Physician Assistant Medical; Referring Provider Family Medicine; Visit Provider Obstetrics & Gynecology
DX: O21.0 Mild hyperemesis gravidarum (principal); Z3A.01 Less than 8 weeks gestation of pregnancy; K85.90 Acute pancreatitis without necrosis or infection, unspecified
CPT/HCPCS: 36415; 76705; 76817; 80048; 80076; 81001; 83690; 84702; 84703; 85025; 85027; 87086; 96361; 96374; 96375; 96376; 99218; 99282; A4216; G0378; J2405

== ENCOUNTER → 2018-06-09 15:42 | Outpatient (CLI) | payer MEDICAID, SELFPAY ==
[2018-06-09 08:31] VITALS: BMI 21.2
[2018-06-09 21:35] LABS: Chlamydia Trachomatis by PCR Negative (Negative); Neisserai gonorrhoeae by PCR Negative (Negative); Probe Check PASS; Sample Adequacy Control PASS; Specimen Processing Control PASS
[2018-06-15 12:10] LABS: HPV Reflexed? NOT INDICATED
== END ==
PROVIDERS: Referring Provider Obstetrics & Gynecology; Visit Provider Obstetrics & Gynecology
DX: Z12.4 Encounter for screening for malignant neoplasm of cervix (principal); Z34.90 Encounter for supervision of normal pregnancy, unspecified, unspecified trimester
CPT/HCPCS: 87086; 87088; 87491; 87591; 87624; 88175; G0145

== ENCOUNTER → 2018-07-08 12:27 | Outpatient (CLI) | payer MEDICAID, SELFPAY ==
[2018-07-08 11:58] VITALS: BMI 21.2
[2018-07-08 13:36] LABS: Absolute Lymphocyte Count 2.52 X10^3/ul (0.83-4.51); Absolute Neutrophil Count 4.8 X10^3/uL (2.0-7.7); Basophil# 0.03 X10^3/uL; Basophil% 0.4 % (0-1); Eosinophil# 0.04 X10^3/uL; Eosinophils% 0.5 % (0-5); Hematocrit 37.8 % (37-47); Hemoglobin 12.8 g/dl (12.0-15.0); Lymphocyte # 2.52 X10^3/ul (4.0); Mean Corp Hgb Conc 33.9 g/gl (32-36); Mean Corpuscular Hgb 31.3 pg (27.0-32.0); Mean Corpuscular Volume 92.4 fL (81-99); Monocyte# 0.52 X10^3/uL; Monocyte% 6.6 % (0-10); Neutrophil # 4.76 X10^3/uL (2.7-7.7); Neutrophil % 60.4 % (47-70); Platelet Count 367 K/mm3 (150-450); RBC Distribution Width SD 46.9 fl (35.1-43.9); Red Blood Count 4.09 M/mm3 (4.2-5.4); White Blood Count 7.9 K/mm3 (4.4-11.0)
[2018-07-08 13:37] LABS: POSITIVE COUNT NO; POSITIVE DIFFERENTIAL NO; POSITIVE MORPHOLOGY NO
[2018-07-08 14:47] LABS: HIV - WCH Non-Reactive (Nonreactive); Rubella IgG > 500.0 IU/mL
[2018-07-10 03:40] LABS: Rapid Plasmin Reagin (RPR) NONREACTIVE (NONREACTIVE)
[2018-07-10 12:12] LABS: HEPATITIS B SURFACE AG Negative (Negative)
== END ==
PROVIDERS: Family Provider Physician Assistant Medical; PCP Physician Assistant Medical; Referring Provider Obstetrics & Gynecology; Visit Provider Obstetrics & Gynecology
DX: Z34.90 Encounter for supervision of normal pregnancy, unspecified, unspecified trimester (principal)
CPT/HCPCS: 36415; 85025; 86592; 86703; 86762; 86850; 86900; 87340

== ENCOUNTER → 2018-08-26 17:12 | Outpatient (CLI) | payer MEDICAID, SELFPAY ==
[2018-08-26 13:25] VITALS: BMI 21.2
== END ==
PROVIDERS: Referring Provider Obstetrics & Gynecology; Visit Provider Obstetrics & Gynecology
DX: O26.899 Other specified pregnancy related conditions, unspecified trimester (principal); R10.2 Pelvic and perineal pain; Z3A.00 Weeks of gestation of pregnancy not specified
CPT/HCPCS: 87086; 87088

== ENCOUNTER → 2018-09-23 | Outpatient (CLI) | payer MEDICAID, SELFPAY ==
[2018-09-23 14:47] VITALS: BMI 23.2
== END | disposition home or self-care (01) ==
LOC: LABSPEC 16:58
PROVIDERS: Referring Provider Obstetrics & Gynecology; Visit Provider Obstetrics & Gynecology
DX: L29.9 Pruritus, unspecified (principal)
CPT/HCPCS: 87086; 87088

== ENCOUNTER → 2018-10-20 | Outpatient (CLI) | payer MEDICAID, SELFPAY ==
[2018-10-20 09:23] VITALS: BMI 23.2
[2018-10-20 10:49] LABS: Absolute Lymphocyte Count 1.88 X10^3/uL (0.83-4.51); Absolute Neutrophil Count 7.4 X10^3/uL (2.0-7.7); Basophil# 0.02 X10^3/uL; Basophil% 0.2 % (0-1); Eosinophil# 0.04 X10^3/uL; Eosinophils% 0.4 % (0-5); Hematocrit 35.8 % (37-47); Hemoglobin 11.9 g/dL (12.0-15.0); Lymphocyte # 1.88 X10^3/ul (4.0); Mean Corp Hgb Conc 33.2 g/dL (32-36); Mean Corpuscular Hgb 30.7 pg (27.0-32.0); Mean Corpuscular Volume 92.5 fL (81-99); Mean Platelet Vol. 8.8 fl (6.2-12.0); Monocyte# 0.53 X10^3/uL; Monocyte% 5.4 % (0-10); NRBC Flagged by Analyzer 0 % (0-5); Neutrophil # 7.37 X10^3/uL (2.7-7.7); Neutrophil % 74.4 % (47-70); Platelet Count 300 K/mm3 (150-450); RBC Distribution Width CV 12.9 % (11.6-14.6); RBC Distribution Width SD 42.7 fl (35.1-43.9); Red Blood Count 3.87 M/mm3 (4.2-5.4); White Blood Count 9.9 K/mm3 (4.4-11.0)
[2018-10-20 11:19] LABS: Glucose Challenge Gest 1H 50g 98 mg/dL (70-140)
== END | disposition home or self-care (01) ==
LOC: LAB 09:46
PROVIDERS: Referring Provider Obstetrics & Gynecology; Visit Provider Obstetrics & Gynecology
DX: O26.893 Other specified pregnancy related conditions, third trimester (principal); Z67.91 Unspecified blood type, Rh negative; Z3A.00 Weeks of gestation of pregnancy not specified
CPT/HCPCS: 36415; 82950; 85025; 86850; 86900

== ENCOUNTER → 2018-10-28 12:27 | Outpatient (CLI) | payer MEDICAID, SELFPAY ==
[2018-10-20 09:23] VITALS: BMI 23.2
--- NOTE | 2018-10-28 12:29 | US_ITS ---
STUDY: SECOND AND THIRD TRIMESTER OBSTETRICAL ULTRASOUND-LIMITED REASON FOR EXAM: Female, 28 years old. Routine survey. History of low lying placenta LMP: Unknown. TECHNIQUE: Transabdominal and Transvaginal TECHNICAL QUALITY: Adequate. PRIOR ULTRASOUND: 05/21/18 FINDINGS: There is a single intrauterine fetus. The fetus is in a cephalic presentation. There is demonstrated cardiac activity with a heart rate of 140 bpm. There is a normal amniotic fluid volume. The largest amniotic fluid pocket measures 5.0 cm. The amniotic fluid index (FARAZ) is 11.9 cm. The placenta is anterior in location and is not low lying. There are Grade 1 placental changes. The cervix measures 4.2 cm in length. The adnexal regions are not visualized. Placenta on current study is not low-lying BIOMETRY: BPD: 7.22 cm: 29 weeks, 0 days HC: 26.25 cm: 28 weeks, 4 days AC: 24.12 cm: 28 weeks, 3 days FL: 5.74 cm: 30 weeks, 1 days age by current US: 29 weeks, 1 days. EMANUEL by current US: 01/12/2019. Estimated weight: 1321 grams, +/- 193 grams, 32 %. US/OB Limited With Biometrics IMPRESSION: Single live intrauterine at 29 weeks, 1 day by current ultrasound with EMANUEL of 01/12/2019. Heart rate at 140 bpm. No suspicious sonographic findings, placenta on the current study is anterior and not low lying. Pending Final Proof Editing
== END ==
PROVIDERS: Referring Provider Obstetrics & Gynecology; Visit Provider Obstetrics & Gynecology
DX: O44.42 Low lying placenta NOS or without hemorrhage, second trimester (principal); Z3A.29 29 weeks gestation of pregnancy
CPT/HCPCS: 76816; 76817

== ENCOUNTER → 2018-12-15 09:45 | Outpatient (CLI) | payer MEDICAID, SELFPAY ==
[2018-12-15 09:33] VITALS: BMI 23.2
[2018-12-15 10:12] LABS: Absolute Lymphocyte Count 2.67 X10^3/uL (0.83-4.51); Absolute Neutrophil Count 7.6 X10^3/uL (2.0-7.7); Basophil# 0.05 X10^3/uL; Basophil% 0.4 % (0-1); Eosinophil# 0.08 X10^3/uL; Eosinophils% 0.7 % (0-5); Hematocrit 36.2 % (37-47); Hemoglobin 11.4 g/dL (12.0-15.0); Lymphocyte # 2.67 X10^3/ul (4.0); Lymphocyte % 23.5 % (19-41); Mean Corp Hgb Conc 31.5 g/dL (32-36); Mean Corpuscular Hgb 27.2 pg (27.0-32.0); Mean Corpuscular Volume 86.4 fL (81-99); Mean Platelet Vol. 9.5 fl (6.2-12.0); Monocyte# 0.81 X10^3/uL; Monocyte% 7.1 % (0-10); NRBC Flagged by Analyzer 0.2 % (0-5); Neutrophil # 7.64 X10^3/uL (2.7-7.7); Neutrophil % 67.3 % (47-70); Platelet Count 349 K/mm3 (150-450); RBC Distribution Width CV 14.6 % (11.6-14.6); RBC Distribution Width SD 45.9 fl (35.1-43.9); Red Blood Count 4.19 M/mm3 (4.2-5.4); White Blood Count 11.4 K/mm3 (4.4-11.0)
[2018-12-15 10:28] LABS: ALB/GLOB Ratio 0.6 RATIO (0.9-2.4); AST(SGOT) 18 U/L (15-37); Alanine Aminotransfer ALT/SGPT 14 U/L (13-56); Albumin, Serum 2.7 g/dL (3.2-5.0); Alkaline Phosphatase 100 U/L (45-117); Anion Gap 7 (5-15); BUN 15 mg/dL (7-18); BUN/Creat Ratio 21.6 RATIO (10-20); Calcium,Total 8.6 mg/dL (8.5-10.1); Chloride 104 mmol/L (98-107); EST Glomerular Filtration Rate 108 mL/min (>60); Est Glom Filt Rate - Afr Amer 130 mL/min (>60); Globulin 4.7 g/dL (2.2-4.2); Glucose 82 mg/dL (74-106); Potassium 4.4 mmol/L (3.5-5.1); Protein, Total 7.4 g/dL (6.4-8.2); Sodium Level 136 mmol/L (136-145)
[2018-12-15 11:06] LABS: Protein, Urine (Random) 16.1 mg/dL (<11.9); Protein:Creat Ratio 218 mg/g CRE (0-200)
[2018-12-16 12:16] LABS: HSV 1 IgG < 0.91 index (0.00-0.90); HSV 2 IgG < 0.91 index (0.00-0.90)
== END ==
PROVIDERS: Family Provider Physician Assistant Medical; PCP Physician Assistant Medical; Referring Provider Obstetrics & Gynecology; Visit Provider Obstetrics & Gynecology
DX: Z20.2 Contact with and (suspected) exposure to infections with a predominantly sexual mode of transmission (principal); O16.3 Unspecified maternal hypertension, third trimester
CPT/HCPCS: 36415; 80053; 82570; 84156; 85025; 86695; 86696

== ENCOUNTER 2018-12-16 15:38 | Outpatient (CLI) | payer MEDICAID, SELFPAY ==
[2018-12-15 09:33] VITALS: BMI 23.2
[2018-12-16 15:48] VITALS: BMI 32.5
[2018-12-16] MEDS: Betamethasone/Betamethasone 30 MG/5 ML Vial 12 MG IM (16:26)
--- NOTE | 2018-12-16 17:33 | OB.TRI.PN_ITS ---
Progress Notes Date of Service: 12/16/18 Progress Note: Patient evaluated for elevated blood pressures in the office. Patient's home blood pressures were elevated but on labor and delivery within normal limits and labs are within normal limits. No proteinuria. heart tone 140s moderate variability reactive no decelerations category 1 tracing [place]: No regular contractions Assessment and plan elevated blood pressures in unclear if gestational hypertension or early preeclampsia. Negative proteinuria at this time. Continue to follow blood pressures and reviewed precautions with patient follow- up as an outpatient. Steroid course given
== END 2018-12-16 16:35 | disposition home or self-care (01) ==
LOC: WPOUT 15:42 → OBT 15:43
PROVIDERS: Family Provider Physician Assistant Medical; PCP Physician Assistant Medical; Referring Provider Obstetrics & Gynecology; Visit Provider Obstetrics & Gynecology
DX: O26.899 Other specified pregnancy related conditions, unspecified trimester (principal); R03.0 Elevated blood-pressure reading, without diagnosis of hypertension; Z3A.00 Weeks of gestation of pregnancy not specified
CPT/HCPCS: 96372; 99218; G0378; J0702

== ENCOUNTER 2018-12-16 23:05 | Outpatient (CLI) | payer MEDICAID, SELFPAY ==
[2018-12-16 15:48] VITALS: BMI 32.5
[2018-12-16 23:53] VITALS: BMI 33.0
[2018-12-17] MEDS: Acetaminophen 500 MG Tablet 1000 MG PO (00:30)
[2018-12-17] MEDS: proMETHazine 25 MG Tablet 12.5 MG PO (00:31)
[2018-12-17 00:33] LABS: Hematocrit 33.4 % (37-47); Hemoglobin 10.6 g/dL (12.0-15.0); Mean Corp Hgb Conc 31.7 g/dL (32-36); Mean Corpuscular Hgb 27.4 pg (27.0-32.0); Mean Corpuscular Volume 86.3 fL (81-99); Platelet Count 341 K/mm3 (150-450); RBC Distribution Width CV 14.6 % (11.6-14.6); RBC Distribution Width SD 46.2 fl (35.1-43.9); Red Blood Count 3.87 M/mm3 (4.2-5.4); White Blood Count 14.2 K/mm3 (4.4-11.0)
[2018-12-17 00:39] LABS: Protein, Urine (Random) < 6.0 mg/dL (<11.9); Protein:Creat Ratio 205 mg/g CRE (0-200)
[2018-12-17 00:41] LABS: AST(SGOT) 14 U/L (15-37); Alanine Aminotransfer ALT/SGPT 13 U/L (13-56); Creatinine, Serum 0.75 mg/dL (0.55-1.02); EST Glomerular Filtration Rate 98 mL/min (>60); Est Glom Filt Rate - Afr Amer 119 mL/min (>60); Estimated Creatinine Clearance 133.33 ml/min; Uric Acid 4.3 mg/dL (2.6-6.0)
[2018-12-17 00:42] LABS: Prothrombin Time (Protime)PT. 12.5 SECONDS (11.7-14.9)
--- NOTE | 2018-12-18 04:42 | OB.TRI.PN ---
Progress Notes Date of Service: 12/16/18 Progress Note: celestone shot given Laboratory Studies: Laboratory Tests 12/17/18 12/17/18 12/17/18 Range/Units 00:15 00:15 00:15 WBC 14.2 H (4.4-11.0) K/mm3 RBC 3.87 L (4.2-5.4) M/mm3 Hgb 10.6 L (12.0-15.0) g/dL Hct 33.4 L (37-47) % MCV 86.3 (81-99) fL MCH 27.4 (27.0-32.0) pg MCHC 31.7 L (32-36) g/dL RDW Std Deviation 46.2 H (35.1-43.9) fl RDW Coeff of Valery 14.6 (11.6-14.6) % Plt Count 341 (150-450) K/mm3 MPV 10.0 (6.2-12.0) fl PT 12.5 (11.7-14.9) SECONDS INR 1.0 APTT 26.0 (24.1-36.2) Seconds Creatinine 0.75 (0.55-1.02) mg/dL Estim Creat Clear Calc 133.33 ml/min Est GFR (MDRD) Af Amer 119 (>60) mL/min Est GFR (MDRD) Non-Af 98 (>60) mL/min Uric Acid 4.3 (2.6-6.0) mg/dL AST 14 L (15-37) U/L ALT 13 (13-56) U/L U Random Total Protein (<11.9) mg/dL Urine Creatinine (NO RANGE EST.) mg/dL Protein/Creatinin Ratio (0-200) mg/g CRE 12/17/18 Range/Units 00:10 WBC (4.4-11.0) K/mm3 RBC (4.2-5.4) M/mm3 Hgb (12.0-15.0) g/dL Hct (37-47) % MCV (81-99) fL MCH (27.0-32.0) pg MCHC (32-36) g/dL RDW Std Deviation (35.1-43.9) fl RDW Coeff of Valery (11.6-14.6) % Plt Count (150-450) K/mm3 MPV (6.2-12.0) fl PT (11.7-14.9) SECONDS INR APTT (24.1-36.2) Seconds Creatinine (0.55-1.02) mg/dL Estim Creat Clear Calc ml/min Est GFR (MDRD) Af Amer (>60) mL/min Est GFR (MDRD) Non-Af (>60) mL/min Uric Acid (2.6-6.0) mg/dL AST (15-37) U/L ALT (13-56) U/L U Random Total Protein < 6.0 (<11.9) mg/dL Urine Creatinine 28.80 (NO RANGE EST.) mg/dL Protein/Creatinin Ratio 205 H (0-200) mg/g CRE - Problem List (1) Elevated blood pressure affecting in third trimester, antepartum Status: Acute (2) Prematurity of fetus Status: Acute Multi Select Codes - Urinary/Genital Urinary/Genital CPT Codes: Other Procedure See Report - no charge
== END 2018-12-17 01:20 | disposition home or self-care (01) ==
LOC: WPOUT 23:46 → WP 23:47
PROVIDERS: Family Provider Physician Assistant Medical; PCP Physician Assistant Medical; Visit Provider Obstetrics & Gynecology
DX: O26.893 Other specified pregnancy related conditions, third trimester (principal); R03.0 Elevated blood-pressure reading, without diagnosis of hypertension; Z3A.00 Weeks of gestation of pregnancy not specified; P07.30 Preterm newborn, unspecified weeks of gestation
CPT/HCPCS: 36415; 59025; 59050; 82565; 82570; 84156; 84450; 84460; 84550; 85027; 85610; 85730; 96372; 99218; G0378; J0702

== ENCOUNTER 2018-12-17 15:50 | Outpatient (CLI) | payer MEDICAID, SELFPAY ==
[2018-12-16 23:53] VITALS: BMI 33.0
[2018-12-17 15:57] VITALS: BMI 32.3
[2018-12-17] MEDS: Betamethasone/Betamethasone 30 MG/5 ML Vial 12 MG IM (16:23)
--- NOTE | 2018-12-18 04:40 | OB.TRI.PN ---
Progress Notes Date of Service: 12/16/18 - Problem List (1) Elevated blood pressure affecting in third trimester, antepartum Status: Acute (2) Prematurity of fetus Status: Acute Multi Select Codes - Urinary/Genital Urinary/Genital CPT Codes: Other Procedure See Report - no charge
== END 2018-12-17 16:30 | disposition home or self-care (01) ==
LOC: WPOUT 15:53 → WP 15:53
PROVIDERS: Family Provider Physician Assistant Medical; PCP Physician Assistant Medical; Referring Provider Obstetrics & Gynecology; Visit Provider Obstetrics & Gynecology
DX: O26.893 Other specified pregnancy related conditions, third trimester (principal); R03.0 Elevated blood-pressure reading, without diagnosis of hypertension; Z3A.00 Weeks of gestation of pregnancy not specified
CPT/HCPCS: 96372; 99218; G0378; J0702

== ENCOUNTER 2018-12-23 10:42 | Outpatient (CLI) | payer MEDICAID, SELFPAY ==
[2018-12-23 10:17] VITALS: BMI 32.3
[2018-12-23 11:09] LABS: Absolute Lymphocyte Count 3.28 X10^3/uL (0.83-4.51); Absolute Neutrophil Count 9.8 X10^3/uL (2.0-7.7); Basophil# 0.04 X10^3/uL; Basophil% 0.3 % (0-1); Eosinophil# 0.12 X10^3/uL; Eosinophils% 0.8 % (0-5); Hematocrit 34.4 % (37-47); Hemoglobin 10.7 g/dL (12.0-15.0); Lymphocyte # 3.28 X10^3/ul (4.0); Mean Corp Hgb Conc 31.1 g/dL (32-36); Mean Corpuscular Hgb 26.7 pg (27.0-32.0); Mean Corpuscular Volume 85.8 fL (81-99); Mean Platelet Vol. 10.2 fl (6.2-12.0); Monocyte# 0.72 X10^3/uL; Monocyte% 5.1 % (0-10); NRBC Flagged by Analyzer 0.2 % (0-5); Neutrophil # 9.81 X10^3/uL (2.7-7.7); Platelet Count 394 K/mm3 (150-450); RBC Distribution Width CV 14.9 % (11.6-14.6); RBC Distribution Width SD 46.5 fl (35.1-43.9); Red Blood Count 4.01 M/mm3 (4.2-5.4); White Blood Count 14.2 K/mm3 (4.4-11.0)
[2018-12-23 11:24] LABS: ALB/GLOB Ratio 0.6 RATIO (0.9-2.4); AST(SGOT) 16 U/L (15-37); Alanine Aminotransfer ALT/SGPT 16 U/L (13-56); Albumin, Serum 2.5 g/dL (3.2-5.0); Alkaline Phosphatase 111 U/L (45-117); Anion Gap 6 (5-15); BUN 23 mg/dL (7-18); BUN/Creat Ratio 31.6 RATIO (10-20); Calcium,Total 8.7 mg/dL (8.5-10.1); Chloride 105 mmol/L (98-107); Creatinine, Serum 0.73 mg/dL (0.55-1.02); EST Glomerular Filtration Rate 102 mL/min (>60); Est Glom Filt Rate - Afr Amer 124 mL/min (>60); Globulin 4.5 g/dL (2.2-4.2); Glucose 106 mg/dL (74-106); Potassium 4.1 mmol/L (3.5-5.1); Sodium Level 135 mmol/L (136-145)
[2018-12-23 11:48] LABS: Protein, Urine (Random) 8.7 mg/dL (<11.9); Protein:Creat Ratio 373 mg/g CRE (0-200)
[2018-12-23 13:50] VITALS: BMI 34.0
--- NOTE | 2018-12-23 13:53 | US_ITS ---
STUDY: SECOND AND THIRD TRIMESTER OBSTETRICAL ULTRASOUND - LIMITED REASON FOR EXAM: Female, 28 years old hypertension, growth check LMP: Unknown. PRIOR ULTRASOUND: 10/28/2018 TECHNIQUE: Transabdominal TECHNICAL QUALITY: Adequate. FINDINGS: There is a single intrauterine fetus. The fetus is in a cephalic presentation. There is demonstrated cardiac activity with a heart rate of 134 bpm. There is a normal amniotic fluid volume. The largest amniotic fluid pocket measures 4.2 cm. The amniotic fluid index (FARAZ) is 10.7 cm. The placenta is anterior in location and is not low lying. There are Grade 2 to 3 placental changes. The cervix was not measured BIOMETRY: BPD: 9.0 cm: 36 weeks, 3 days HC: 31.7 cm: 35 weeks, 5 days AC: 31.7 cm: 35 weeks, 5 days FL: 7.11 cm: 36 weeks, 3 days age by prior US: 37 weeks, 1 days. EMANUEL by prior US: 01/12/2019. age by current US: 37 weeks, 1 days. EMANUEL by current US: 01/12/2019. Estimated weight: 2800 grams, +/- 409 grams, 26 percentile. Gender: Indeterminant US/OB Limited With Biometrics IMPRESSION: Single live intrauterine at 37 weeks, 1 day by current ultrasound EMANUEL of 01/12/2019. Heart rate of 134 bpm. No suspicious sonographic findings. Normal growth noted since the previous study. Electronically Signed: Dwaine Turpin MD at 16:48 EDT , Service support ,
--- NOTE | 2018-12-26 22:29 | OB.TRI.PN_ITS ---
Progress Notes Date of Service: 12/23/18 Progress Note: Patient presents for NST and blood pressure check. Normal blood pressure FHT: 140 Moderate variability reactive no decelerations category I tracing [place]: no Contractions Assessment and plan proteinuria in monitor with weekly NSTs and blood pressure checks reactive nst Laboratory Studies: Laboratory Tests 12/23/18 12/23/18 12/23/18 Range/Units 11:27 10:59 10:59 WBC 14.2 H (4.4-11.0) K/mm3 RBC 4.01 L (4.2-5.4) M/mm3 Hgb 10.7 L (12.0-15.0) g/dL Hct 34.4 L (37-47) % MCV 85.8 (81-99) fL MCH 26.7 L (27.0-32.0) pg MCHC 31.1 L (32-36) g/dL RDW Std Deviation 46.5 H (35.1-43.9) fl RDW Coeff of Valery 14.9 H (11.6-14.6) % Plt Count 394 (150-450) K/mm3 MPV 10.2 (6.2-12.0) fl Immature Gran % (Auto) 1.800 H (0.0-0.9) % Neut % (Auto) 69.0 (47-70) % Lymph % (Auto) 23.0 (19-41) % Kingfisher % (Auto) 5.1 (0-10) % Eos % (Auto) 0.8 (0-5) % Baso % (Auto) 0.3 (0-1) % Absolute Neuts (auto) 9.8 H (2.0-7.7) X10^3/uL Absolute Lymphs (auto) 3.28 (0.83-4.51) X10^3/uL Nucleated RBC % 0.2 (0-5) % Sodium 135 L (136-145) mmol/L Potassium 4.1 (3.5-5.1) mmol/L Chloride 105 (98-107) mmol/L Carbon Dioxide 24.0 (21.0-32.0) mmol/L Anion Gap 6 (5-15) BUN 23 H (7-18) mg/dL Creatinine 0.73 (0.55-1.02) mg/dL Est GFR (MDRD) Af Amer 124 (>60) mL/min Est GFR (MDRD) Non-Af 102 (>60) mL/min BUN/Creatinine Ratio 31.6 H (10-20) RATIO Glucose 106 (74-106) mg/dL Calcium 8.7 (8.5-10.1) mg/dL Total Bilirubin 0.30 (0.20-1.00) mg/dL AST 16 (15-37) U/L ALT 16 (13-56) U/L Alkaline Phosphatase 111 (45-117) U/L Total Protein 7.0 (6.4-8.2) g/dL Albumin 2.5 L (3.2-5.0) g/dL Globulin 4.5 H (2.2-4.2) g/dL Albumin/Globulin Ratio 0.6 L (0.9-2.4) RATIO U Random Total Protein 8.7 (<11.9) mg/dL Urine Creatinine 23.30 (NO RANGE EST.) mg/dL Protein/Creatinin Ratio 373 H (0-200) mg/g CRE
== END 2018-12-23 17:05 | disposition home or self-care (01) ==
LOC: PAVLAB 11:21 → OBT 12:31
PROVIDERS: Nurse Practitioner Women's Health; Family Provider Physician Assistant Medical; PCP Physician Assistant Medical; Referring Provider Obstetrics & Gynecology; Visit Provider Obstetrics & Gynecology
DX: O12.13 Gestational proteinuria, third trimester (principal); Z3A.37 37 weeks gestation of pregnancy
CPT/HCPCS: 36415; 59025; 59050; 76816; 80053; 82570; 84156; 85025; 87081; 99218; G0378

== ENCOUNTER 2018-12-26 19:05 | Outpatient (CLI) | payer MEDICAID, SELFPAY ==
[2018-12-25 09:30] VITALS: BMI 34.0
[2018-12-26 19:54] VITALS: BMI 34.3
[2018-12-26 20:39] LABS: Hematocrit 33.1 % (37-47); Hemoglobin 10.3 g/dL (12.0-15.0); Mean Corp Hgb Conc 31.1 g/dL (32-36); Mean Corpuscular Hgb 26.6 pg (27.0-32.0); Mean Corpuscular Volume 85.5 fL (81-99); Mean Platelet Vol. 9.9 fl (6.2-12.0); Platelet Count 342 K/mm3 (150-450); RBC Distribution Width CV 14.9 % (11.6-14.6); Red Blood Count 3.87 M/mm3 (4.2-5.4); White Blood Count 15.9 K/mm3 (4.4-11.0)
[2018-12-26 20:53] LABS: AST(SGOT) 20 U/L (15-37); Alanine Aminotransfer ALT/SGPT 16 U/L (13-56); Creatinine, Serum 0.89 mg/dL (0.55-1.02); EST Glomerular Filtration Rate 82 mL/min (>60); Est Glom Filt Rate - Afr Amer 99 mL/min (>60); Estimated Creatinine Clearance 114.62 ml/min; Uric Acid 5.2 mg/dL (2.6-6.0)
[2018-12-26 20:55] LABS: Protein, Urine (Random) < 6.0 mg/dL (<11.9)
[2018-12-26 21:04] LABS: International Normalized Ratio 0.9; Prothrombin Time (Protime)PT. 11.8 SECONDS (11.7-14.9)
[2018-12-26 21:05] LABS: Partial Thromboplast Time 25.4 Seconds (24.1-36.2)
--- NOTE | 2018-12-26 22:12 | OB.TRI.PN ---
Progress Notes Date of Service: 12/26/18 Progress Note: FHT: 140 Moderate variability reactive no decelerations category I tracing [place]: Irregular Contractions Laboratory Studies: Laboratory Tests 12/26/18 12/26/18 12/26/18 Range/Units 20:25 20:25 20:25 WBC (4.4-11.0) K/mm3 RBC (4.2-5.4) M/mm3 Hgb (12.0-15.0) g/dL Hct (37-47) % MCV (81-99) fL MCH (27.0-32.0) pg MCHC (32-36) g/dL RDW Std Deviation (35.1-43.9) fl RDW Coeff of Valery (11.6-14.6) % Plt Count (150-450) K/mm3 MPV (6.2-12.0) fl PT 11.8 (11.7-14.9) SECONDS INR 0.9 APTT 25.4 (24.1-36.2) Seconds Creatinine 0.89 (0.55-1.02) mg/dL Estim Creat Clear Calc 114.62 ml/min Est GFR (MDRD) Af Amer 99 (>60) mL/min Est GFR (MDRD) Non-Af 82 (>60) mL/min Uric Acid 5.2 (2.6-6.0) mg/dL AST 20 (15-37) U/L ALT 16 (13-56) U/L U Random Total Protein < 6.0 (<11.9) mg/dL Urine Creatinine 18.70 (NO RANGE EST.) mg/dL Protein/Creatinin Ratio TNP 12/26/18 Range/Units 20:25 WBC 15.9 H (4.4-11.0) K/mm3 RBC 3.87 L (4.2-5.4) M/mm3 Hgb 10.3 L (12.0-15.0) g/dL Hct 33.1 L (37-47) % MCV 85.5 (81-99) fL MCH 26.6 L (27.0-32.0) pg MCHC 31.1 L (32-36) g/dL RDW Std Deviation 46.0 H (35.1-43.9) fl RDW Coeff of Valery 14.9 H (11.6-14.6) % Plt Count 342 (150-450) K/mm3 MPV 9.9 (6.2-12.0) fl PT (11.7-14.9) SECONDS INR APTT (24.1-36.2) Seconds Creatinine (0.55-1.02) mg/dL Estim Creat Clear Calc ml/min Est GFR (MDRD) Af Amer (>60) mL/min Est GFR (MDRD) Non-Af (>60) mL/min Uric Acid (2.6-6.0) mg/dL AST (15-37) U/L ALT (13-56) U/L U Random Total Protein (<11.9) mg/dL Urine Creatinine (NO RANGE EST.) mg/dL Protein/Creatinin Ratio Multi Select Codes - Urinary/Genital Urinary/Genital CPT Codes: 45547-84 non-stress test Interp
[2018-12-26] MEDS: Citalopram 40 MG TABLET PO (22:16)
== END 2018-12-26 22:22 | disposition home or self-care (01) ==
LOC: WPOUT 19:15 → WP 19:16
PROVIDERS: Family Provider Physician Assistant Medical; PCP Physician Assistant Medical; Referring Provider Obstetrics & Gynecology; Visit Provider Obstetrics & Gynecology
DX: O26.899 Other specified pregnancy related conditions, unspecified trimester (principal); R51 Headache; R11.0 Nausea; R10.10 Upper abdominal pain, unspecified; Z3A.00 Weeks of gestation of pregnancy not specified
CPT/HCPCS: 36415; 59025; 59050; 82565; 82570; 84156; 84450; 84460; 84550; 85027; 85610; 85730; 99218; G0378

== ENCOUNTER → 2019-01-04 10:12 | Outpatient (CLI) | payer MEDICAID, SELFPAY ==
[2019-01-04 09:47] VITALS: BMI 34.3
[2019-01-04 10:27] LABS: Absolute Lymphocyte Count 2.84 X10^3/uL (0.83-4.51); Basophil# 0.06 X10^3/uL; Basophil% 0.5 % (0-1); Eosinophil# 0.08 X10^3/uL; Eosinophils% 0.7 % (0-5); Hematocrit 35.3 % (37-47); Hemoglobin 10.7 g/dL (12.0-15.0); Lymphocyte # 2.84 X10^3/ul (4.0); Lymphocyte % 23.9 % (19-41); Mean Corp Hgb Conc 30.3 g/dL (32-36); Mean Corpuscular Hgb 25.8 pg (27.0-32.0); Mean Corpuscular Volume 85.1 fL (81-99); Mean Platelet Vol. 10.2 fl (6.2-12.0); Monocyte# 0.64 X10^3/uL; Monocyte% 5.4 % (0-10); NRBC Flagged by Analyzer 0.8 % (0-5); Neutrophil # 8.04 X10^3/uL (2.7-7.7); Neutrophil % 67.6 % (47-70); Platelet Count 380 K/mm3 (150-450); RBC Distribution Width CV 15.8 % (11.6-14.6); RBC Distribution Width SD 48.5 fl (35.1-43.9); Red Blood Count 4.15 M/mm3 (4.2-5.4); White Blood Count 11.9 K/mm3 (4.4-11.0)
[2019-01-04 10:43] LABS: Albumin, Serum 2.5 g/dL (3.2-5.0); BUN 17 mg/dL (7-18); BUN/Creat Ratio 22.2 RATIO (10-20); Creatinine, Serum 0.77 mg/dL (0.55-1.02); EST Glomerular Filtration Rate 96 mL/min (>60); Est Glom Filt Rate - Afr Amer 116 mL/min (>60); Glucose 151 mg/dL (74-106); Protein, Total 7.1 g/dL (6.4-8.2)
[2019-01-04 10:44] LABS: ALB/GLOB Ratio 0.5 RATIO (0.9-2.4); AST(SGOT) 26 U/L (15-37); Alanine Aminotransfer ALT/SGPT 32 U/L (13-56); Alkaline Phosphatase 137 U/L (45-117); Anion Gap 8 (5-15); Calcium,Total 8.8 mg/dL (8.5-10.1); Chloride 105 mmol/L (98-107); Globulin 4.6 g/dL (2.2-4.2); Potassium 4.4 mmol/L (3.5-5.1); Sodium Level 135 mmol/L (136-145)
[2019-01-04 13:14] LABS: Protein, Urine (Random) 28.7 mg/dL (<11.9); Protein:Creat Ratio 603 mg/g CRE (0-200)
== END ==
PROVIDERS: Family Provider Physician Assistant Medical; PCP Physician Assistant Medical; Referring Provider Obstetrics & Gynecology; Visit Provider Obstetrics & Gynecology
DX: O16.9 Unspecified maternal hypertension, unspecified trimester (principal); Z3A.00 Weeks of gestation of pregnancy not specified
CPT/HCPCS: 36415; 80053; 82570; 84156; 85025

== ENCOUNTER 2019-01-05 07:03 | Inpatient (IN) | payer MEDICAID, SELFPAY ==
[2018-11-25 10:58] VITALS: BMI 23.2
[2019-01-04 09:47] VITALS: BMI 34.3
[2019-01-05 07:34] VITALS: BMI 35.9
[2019-01-05] MEDS: Lactated Ringers 1,000 ML 50 ML IV (07:50)
[2019-01-05] MEDS: 0.9% Normal Saline 100 ML IV.SOLN. INTRA-UTER (08:00)
--- NOTE | 2019-01-05 08:00 | PCM.HPOB.BLA ---
- Problem List (1) Preeclampsia Status: Acute (2) Abnormal Pap smear of cervix Status: Acute Comment: s/p colp, repeat pap PP (3) Congenital heart defect Status: Acute Comment: patient states she had a hole in her heart in the past, no surgeries and hasn't seen aircraft avionics technician in years. nl anatomy scan (4) Legally blind Status: Acute Comment: wears glasses (5) Status: Acute Qualifiers: Comment: genetic, ntd and afp screening declined. anatomy scan completed. (6) Rh negative status during Status: Acute Qualifiers: Comment: rhogam given at 28 weeks (7) Segmental and somatic dysfunction of cervical region Status: Acute (8) Segmental and somatic dysfunction of lumbar region Status: Acute (9) Segmental and somatic dysfunction of sacral region Status: Acute (10) Segmental and somatic dysfunction of thoracic region Status: Acute (11) Supervision of normal Status: Acute Qualifiers: Comment: PRR EMANUEL 01/12/19 David. 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 Is patient in pain?: No Allergies No Known Allergies Allergy (Verified 01/04/19 09:46) Medications Pnv No.95/Ferrous Fum/Folic AC [ Formula] 1 ea PO DAILY 05/21/18 [History Confirmed 01/04/19] Ondansetron HCl [Zofran] 4 mg PO 4X/DAY PRN PRN #60 tab 05/22/18 [Rx Confirmed 01/04/19] citalopram 40 mg tablet 40 mg PO DAILY #30 tab 09/23/18 [Rx Confirmed 01/04/19] miscellaneous medical supply misc See Rx Instructions .ROUTE .MEDSUPPLY #1 ea 12/15/18 [Rx Confirmed 01/04/19] cyclobenzaprine 10 mg tablet 10 mg PO TID PRN #30 tab 12/28/18 [Rx Confirmed 01/04/19] Last Menstral Period: 04/07/18 Zika: Zika virus screening: Negative : No PFSH PFSH Medical History Anxiety and depression (Acute) Family History Father Heart disease Social History (Updated 01/04/19 @ 10:21 by Marilyn Arellano MD) Smoking Status: Never smoker alcohol intake: never substance use type: does not use caffeine: Yes what type of physical activity do you participate in: walking seatbelt use: always do you feel safe at home: Yes 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 OB Visit EMANUEL Calculator Estimated Delivery Date Method Current WG Current Estimate 01/12/19 LMP (Certain) 38w 6d Expected Delivery Route/Plan Specific Issue/Plans flu vaccine: given tdap vaccine: given rhogam: 10/20 given LARC form signed: declined labor support person: zoë pain management: epidural cut cord/dad catch: cut maybe : yes PP control planned: discussed possible routes of delivery and associated risks: [] special requests: [] Initial Weight: 104 lb Date EGA Weight BP Urine Prot Glucose FHR FuHt Pres Mov CTX Dilation Effaced St Visit Note 07/08/18 13w 1d 104 lb 6 oz (+6 oz) 100/68 150 no vb lof cramping, has shingles 07/29/18 16w 1d 108 lb (+4 lb) 100/62 150 no vb lof 08/17/18 18w 6d 112 lb 2 oz (+8 lb 2 oz) 114/62 148 Work in for fall down steps. Denies bleeding. States mostly pain in back. Denies VB, LOF 08/26/18 20w 1d 114 lb 6 oz (+10 lb 6 oz) 122/70 Negative Negative 145 19 planning reveal constitution party. no vb co some lower cramping. 09/23/18 24w 1d 126 lb 1 oz (+22 lb 1 oz) 92/72 145 24 no vb cramping co suprpubic pain, no dysuria. 10/20/18 28w 0d 131 lb 2 oz (+27 lb 2 oz) 116/82 Negative Negative 140 28 no vb lof good fm n oregular ctx 11/04/18 30w 1d 138 lb (+34 lb) 106/62 Negative Negative 140 32 no vb lof good fm n oergular ctx 11/18/18 32w 1d 146 lb (+42 lb) 100/50 Negative Negative 156 33 Cephalic Active absent No VB, LOF. 11/25/18 33w 1d 146 lb 2 oz (+42 lb 2 oz) 150 Decr Work in for decreased FM. No VB, LOF or CTX 12/02/18 34w 1d 153 lb (+49 lb) 120/84 Negative Negative 135 35 Cephalic Active absent no vb lof 12/15/18 36w 0d 158 lb 8 oz (+54 lb 8 oz) 130/92 Negative Negative 130 36 Cephalic Active absent no vb lof no vb lof, recommend preeclampsia lab testing, nst today. 12/23/18 37w 1d 164 lb 4 oz (+60 lb 4 oz) 142/84 132/82 Negative Negative 144 37 Cephalic Active absent 0.5 Off and on headache but no different then last 3 weeks. No vision changes. No VB, LOF 12/25/18 37w 3d 126/82 Negative Negative BP check only 12/28/18 37w 6d 168 lb (+64 lb) 128/86 Negative Negative 140 very uncomfortable back pain no vb lof 01/04/19 38w 6d 173 lb (+69 lb) 146/88 140 38 Cephalic 1 intermittent COOK no vb Visit Notes Visit Date: 01/04/19 ??intermittent COOK no vb ??Marilyn Arellano MD on 01/04/19 Visit Date: 12/28/18 ??very uncomfortable back pain no vb lof ??Marilyn Arellano MD on 12/28/18 Visit Date: 12/25/18 ??BP check only ??SHAHANA Fulton on 12/25/18 Visit Date: 12/23/18 ??Off and on headache but no different then last 3 weeks. No vision changes. No VB, LOF ??Soraida Hui NP-C on 12/23/18 Visit Date: 12/15/18 ??no vb lof, recommend preeclampsia lab testing, nst today. ??Marilyn Arellano MD on 12/15/18 ??no vb lof ??Marilyn Arellano MD on 12/15/18 Visit Date: 12/02/18 ??no vb lof ??Marilyn Arellano MD on 12/02/18 Visit Date: 11/25/18 ??Work in for decreased FM. No VB, LOF or CTX ??EVE FultonC on 11/25/18 Visit Date: 11/18/18 ??No VB, LOF. ??EVE FultonC on 11/18/18 Visit Date: 11/04/18 ??no vb lof good fm n oergular ctx ??Marilyn Arellano MD on 11/04/18 Visit Date: 10/20/18 ??no vb lof good fm n oregular ctx ??Marilyn Arellano MD on 10/20/18 Visit Date: 09/23/18 ??no vb cramping co suprpubic pain, no dysuria. ??Marilyn Arellano MD on 09/23/18 Visit Date: 08/26/18 ??planning reveal constitution party. no vb co some lower cramping. ??Marilyn Arellano MD on 08/26/18 Visit Date: 08/17/18 ??Work in for fall down steps. Denies bleeding. States mostly pain in back. Denies VB, LOF ??EVE FultonC on 08/17/18 Visit Date: 07/29/18 ??no vb lof ??Marilyn Arellano MD on 08/01/18 Visit Date: 07/08/18 ??no vb lof cramping, has shingles ??Marilyn Arellano MD on 07/08/18 ACOG First Trimester First Trimester: Desire for , Alcohol, Tobacco Cessation, Illicit/Recreational Drug/Substance Use, Intimate Partner Violence, Barriers to care, Unstable Housing, Communication Barriers, Environmental/Work Hazards, Anticipated Course of Care, Toxoplasmosis Precations, Use of Any medications, Sexual activity, Exercise, Dental Care, Sauna/Hot tub use, Seat Belt use, Childbirth classes/Hospital facilities, , Travel, Indications for US and Screening for Aneuploidy Second Trimester Second Trimester: Signs and Symptoms of Labor, Selecting a care provider, Reproductive Life Planning, Care Planning, Tobacco Cessation, Depression/Anxiety and Intimate Partner Violence Third Trimester Third Trimester: Pain Management Plans, Labor support person(s), Immediate Larc, Movement Monitoring and Feeding Yes ; discussed Trial of Labor after Counseling or discussed Circumcision preference Diagnostics Diagnostics Diagnostics Hgb Pending 01/04/19 Hct Pending 01/04/19 Details: HIV: Urine Culture: Sequential Screen: NIPT Screen: ROS Const Reports system reviewed and no additional complaints, except as docu Card Reports system reviewed and no additional complaints, except as docu Resp Reports system reviewed and no additional complaints, except as docu GI Reports system reviewed and no additional complaints, except as docu, Reports nausea Reports system reviewed and no additional complaints, except as docu Musc Reports system reviewed and no additional complaints, except as docu Exam Const General: cooperative, healthy appearing, comfortable, anxious HENMT Head: normal to inspection Nose: external nose normal Face and sinus: normal facial exam Neck Neck: normal visual inspection, full ROM, no lymphadenopathy Thyroid: thyroid normal Chest Chest palpation & inspection: normal inspection of the chest Resp Effort & Inspection: normal respiratory effort GI Inspection: normal to inspection Palpation: soft, other (gravid uterus) Other: infant vertex and appropriate size for gestational age Other: Cervical Exam: Extrem General: pedal edema Assessment & Plan Problems 1. Legally blind H54.8 2. Segmental and somatic dysfunction of sacral region M99.04 3. Segmental and somatic dysfunction of thoracic region M99.02 4. Segmental and somatic dysfunction of lumbar region M99.03 5. Segmental and somatic dysfunction of cervical region M99.01 6. 38 weeks gestation of Z3A.38 7. Abnormal Pap smear of cervix R87.619 8. Rh negative status during in third trimester O26.893 9. Gastroesophageal reflux disease, esophagitis presence not specified K21.9 10. Anxiety and depression F41.9; F32.9 11. Encounter for supervision of normal first in first trimester Z34.01 12. Congenital heart defect Q24.9 13. Gestational hypertension O13.9 Plan Patient presents IOL, plan management for , pitocin/AROM after roy bulb. Pain management: plans epidural. GBS negative. Management of any complications: ghtn- labs today and plan IOL tomorrow if normal I have reviewed the [facility] and made any clinically relevant updates. Orders Orders: POC Urinalysis 2 Dip (Clinic) Today Comprehensive Metabolic Profil Today O16.9 CBC W/Diff, Automated Today O16.9 Protein+Creatinine Ratio,Urine Today O16.9 Plan Detail Goals Decrease pain and inflammation Improve ROM Improve ability to stand/walk comfortably Coding Level of Care Code OB Routine Diagnoses Legally blind H54.8 Segmental and somatic dysfunction of sacral region M99.04 Segmental and somatic dysfunction of thoracic region M99.02 Segmental and somatic dysfunction of lumbar region M99.03 Segmental and somatic dysfunction of cervical region M99.01 38 weeks gestation of Z3A.38 ??Weeks of gestation: 38 weeks Abnormal Pap smear of cervix R87.619 Rh negative status during in third trimester O26.893 ??Trimester: third trimester Gastroesophageal reflux disease, esophagitis presence not specified K21.9 ??Esophagitis presence: esophagitis presence not specified Anxiety and depression F41.9; F32.9 Encounter for supervision of normal first in first trimester Z34.01 ??Normal : normal first ??Trimester: first trimester Congenital heart defect Q24.9 Gestational hypertension O13.9 UPDATE- I have seen the patient and performed any clinically relevant updates to the history and physical exam. Marilyn Arellano MD
[2019-01-05 08:15] LABS: Absolute Lymphocyte Count 2.97 X10^3/uL (0.83-4.51); Absolute Neutrophil Count 7.8 X10^3/uL (2.0-7.7); Basophil# 0.07 X10^3/uL; Basophil% 0.6 % (0-1); Eosinophil# 0.09 X10^3/uL; Eosinophils% 0.7 % (0-5); Hematocrit 33.5 % (37-47); Hemoglobin 10.3 g/dL (12.0-15.0); Lymphocyte # 2.97 X10^3/ul (4.0); Lymphocyte % 24.6 % (19-41); Mean Corp Hgb Conc 30.7 g/dL (32-36); Mean Corpuscular Hgb 26.1 pg (27.0-32.0); Mean Corpuscular Volume 84.8 fL (81-99); Mean Platelet Vol. 10.4 fl (6.2-12.0); Monocyte% 7.5 % (0-10); Neutrophil # 7.79 X10^3/uL (2.7-7.7); Neutrophil % 64.7 % (47-70); Platelet Count 374 K/mm3 (150-450); RBC Distribution Width CV 15.6 % (11.6-14.6); RBC Distribution Width SD 47.6 fl (35.1-43.9); Red Blood Count 3.95 M/mm3 (4.2-5.4); White Blood Count 12.1 K/mm3 (4.4-11.0)
[2019-01-05 08:33] LABS: NRBC Flagged by Analyzer 1.2 % (0-5)
[2019-01-05] MEDS: Oxytocin 30 units/NS 500 ml 30 UNITS/500 ML IV.SOLN IV (08:51)
--- NOTE | 2019-01-05 09:00 | NURSING ---
Reports falling and twisting ankle approx. 1 month ago but does not routinely fall.
[2019-01-05] MEDS: Lactated Ringers 500 ML 999 ML IV ×2 (16:13→22:26)
[2019-01-05] MEDS: fentaNYL-bupivacaine (epidural) 100 ML BAG EPIDURAL ×2 (16:56→21:05)
[2019-01-05] MEDS: Lactated Ringers 1,000 ML 194 ML IV (19:35)
--- NOTE | 2019-01-05 21:12 | NURSING ---
roy catheter inserted per jackie BARNES. received this information in bedside report. this RN observed roy cath being present upon entering room.
[2019-01-05] MEDS: Citalopram 40 MG TABLET PO (22:27)
[2019-01-06] VITALS (26 sets, daily range): BP systolic 120–168; BP diastolic 71–99; PULSE 78–111; RESP 14–18; TEMP 36.2–36.8; O2SAT 98–100
[2019-01-06] MEDS: 0.9% Saline Lock 10 ML Syringe IV ×2 (01:00→19:32)
[2019-01-06] MEDS: Ondansetron 4 MG/2 ML Vial IV (01:00)
[2019-01-06] MEDS: Lactated Ringers 1,000 ML 200 ML IV (01:21)
[2019-01-06] MEDS: fentaNYL-bupivacaine (epidural) 100 ML BAG EPIDURAL (01:55)
[2019-01-06] MEDS: Acetaminophen 325 MG Tablet PO (02:08)
[2019-01-06] MEDS: Cefazolin 2 GM in 0.9% Normal Saline 100 ML IV (04:20)
[2019-01-06] MEDS: Ketorolac 30 MG/ML Syringe IV ×3 (04:35→19:32)
--- NOTE | 2019-01-06 04:55 | PCM.PN.BLA ---
Progress Note Patient progressing in labor was 8 cm and heart rate tracing dropped into a bradycardia in the 60s to 90s and patient was taken to the back. Position changes, oxygen, and IV fluids turning off the Pitocin did not resolve heart rate abnormality and it was still in the 80s to 90s and therefore the decision was made for primary . see operative note for information
--- NOTE | 2019-01-06 04:58 | PCM.OPRPT ---
Problem List (1) Preeclampsia Status: Acute (2) Abnormal Pap smear of cervix Status: Acute Comment: s/p colp, repeat pap PP (3) Congenital heart defect Status: Acute Comment: patient states she had a hole in her heart in the past, no surgeries and hasn't seen skilled nursing facility counselor in years. nl anatomy scan (4) Legally blind Status: Acute Comment: wears glasses (5) Status: Acute Qualifiers: Comment: genetic, ntd and afp screening declined. anatomy scan completed. (6) Rh negative status during Status: Acute Qualifiers: Comment: rhogam given at 28 weeks (7) Segmental and somatic dysfunction of cervical region Status: Acute (8) Segmental and somatic dysfunction of lumbar region Status: Acute (9) Segmental and somatic dysfunction of sacral region Status: Acute (10) Segmental and somatic dysfunction of thoracic region Status: Acute (11) Supervision of normal Status: Acute Qualifiers: Comment: PRR EMANUEL 01/12/19 David. (12) Anxiety and depression Status: Chronic Comment: no meds (13) GERD (gastroesophageal reflux disease) Status: Chronic Qualifiers: (14) bradycardia Status: Acute Delivery Classification: Stat Final EMANUEL: 01/12/19 Gestational age: 39 Weeks and 1 Days Type of Anesthesia:: Spinal Date of Procedure: 01/06/19 Pre-Operative Diagnosis: bradycardia Post-Operative Diagnosis: Same Indications for : Distress, Nonreassuring Status Description of Procedure: 28-year-old G1, P0 at 39 weeks presented for induction of labor secondary to preeclampsia. She underwent a Hayes bulb and Pitocin induction of labor and procedure to 8 cm of dilation and experienced a bradycardia that did not resolve with position changes, fluids, oxygen, and turning off Pitocin. Decision was made for primary . Immediately prior to incision heart rate was noted to be back up in the 130s. Patient was prepped and draped in normal sterile fashion in the dorsal supine position with leftward tilt. Pfannenstiel skin incision was made with the scalpel and carried through to the underlying layer of fascia with the scalpel. Fascia was nicked in the midline and the incision extended laterally. The peritoneum was entered digitally. The incision was stretched and a low transverse uterine incision was made with the scalpel. The 's head was delivered atraumatically followed by the anterior and posterior shoulders without complication the rest of the infant delivered. The cord was clamped and cut and the was handed off to awaiting nurse. The placenta was delivered spontaneously immediately following and was noted to be intact and have a three-vessel cord. The uterus was exteriorized cleared of all clots and debris, and the incision was closed in a double layer closure using #1 Monocryl. The ovaries and fallopian tubes were noted to be within normal limits. The uterus was returned to the maternal abdomen and gutters were cleared of all clots and debris. The peritoneum was closed with 3-0 Monocryl in a running fashion. Gloves were changed prior to fascial closure. Fascia was closed with 0 PDS in a running fashion. Subcutaneous tissue was copiously irrigated and the skin was closed with 3-0 Monocryl in a subcuticular fashion. Mepilex dressing was applied without complication. Patient was taken to recovery in stable condition. Amniotic Membrane Rupture Type: Artificial Amniotic Fluid Description: Clear Placenta Disposition: [facility] Fluids Replaced: crystalloid Cord Entanglement: - - Short umbilical cord, thin caliber with little Wees[place]'s jelly Cord Vessel Description: 3 Vessels Esitmated Blood Loss (ml): 800 Antibiotic Given: Ancef 2 grams IV x1, Zithromax 500 mg/5 mL X1 Complications: None - Admit VTE Documentation VTE Present on Admission: No VTE Mechan Device Prophylaxis: SCD's Multi Select Codes - Urinary/Genital Urinary/Genital CPT Codes: 15786 Delivery [facility] hospital
[2019-01-06] MEDS: Oxytocin 30 units/NS 500 ml 30 UNITS/500 ML IV.SOLN 167 UNITS IV (05:13)
[2019-01-06] MEDS: Lactated Ringers 1,000 ML 100 ML IV (05:40)
--- NOTE | 2019-01-06 05:47 | NURSING ---
spoke with dr canela concerning pt elevated BP during recovery. most recent . pt crying after Dr. norwood updated family on [facility]. dr canela states she will be in room shortly to assess pt and speak with her on infant updates.
[2019-01-06] MEDS: Acetaminophen 500 MG Tablet 1000 MG PO (09:28)
--- NOTE | 2019-01-06 09:35 | NURSING ---
Double breast pump provided to patient at this time. Patient educated to cleaning pump parts, pump assembly, and functionality. Patient mother at bedside for instruction. Patient educated to breast massage prior to pumping. Encouraged to pump every 2-3 hours for 10-15 minutes. Patient educated to hand expression and this RN able to hand express drops of colostrum to sterile swab at this time. Pumping session initiated with patient with speed of 60 and suction of 15 and pumping viewed. Patient denies discomfort. Verbalizes understanding of education. Will continue to assist and monitor.
--- NOTE | 2019-01-06 09:41 | NURSING ---
patient reports blurred vision. Vitals obtained and WNL for patient. Murray juice provided. Patient denies other symptoms at this time. Will continue to monitor.
--- NOTE | 2019-01-06 15:34 | NURSING ---
Mother instructed on breast pump use . Mother to pump every 3 hours 8-12 times a day. 15-20 min at settings effective but comfortable. Encouraged breast massage and hand expression with pumping.
--- NOTE | 2019-01-06 15:50 | CASEMGMT ---
Social Work Labor and Delivery Unit Consult noted today. Chart reviewed, noting that baby has been transferred and patient/mother of baby (MOB) with delivery via caesarian section early this morning. Will plan to see MOB tomorrow, 01.07.2019, in the morning hours if time allows. -BEKA Kirby, HEATING OPERATORS ENGINEER
--- NOTE | 2019-01-06 19:01 | NURSING ---
patient request DNP be lifted. Registration notified and DNP has been lifted.
[2019-01-06] MEDS: Citalopram 40 MG TABLET PO (21:17)
[2019-01-07] MEDS: Ketorolac 30 MG/ML Syringe IV ×3 (00:33→12:04)
[2019-01-07] MEDS: 0.9% Saline Lock 10 ML Syringe IV ×2 (00:41→06:09)
[2019-01-07 00:42] VITALS: BP 118/71; PULSE 115; RESP 16; TEMP 36.3; O2SAT 99
[2019-01-07 02:04] VITALS: PULSE 111; RESP 16; O2SAT 98
[2019-01-07 04:00] VITALS: BP 117/68; PULSE 111; RESP 16; TEMP 36.3; O2SAT 95
[2019-01-07] MEDS: Senna/Docusate Sodium 1 Tablet PO (08:30)
[2019-01-07 08:40] VITALS: BP 144/83; PULSE 123; RESP 18; TEMP 36.3
--- NOTE | 2019-01-07 08:40 | ED.RN ---
pt was just up to bathroom and is sitting in the rocking chair at this time. will re-check blood pressure.
--- NOTE | 2019-01-07 11:05 | NURSING ---
Dr. Arellaon present. notified of pt's BP 144/83 this am. okay to continue with discharge
--- NOTE | 2019-01-07 11:27 | PCM.PN.OB ---
Patient Problems: Active and Suspected Problems (Last Reviewed 01/04/19 @ 09:46 by Heena Camargo) Preeclampsia (Acute) bradycardia (Acute) Subjective: doing well no complaints pain controlled no CP SOB N V ambulating well tolerating po lochia moderate, going well - Physical Exam General: Alert, Oriented x3 Vital Signs Temp Pulse Resp BP Pulse Ox 97.4 F L 123 H 18 144/83 H 95 01/07/19 08:40 01/07/19 08:40 01/07/19 08:40 01/07/19 08:40 01/07/19 04:00 Oxygen Delivery Method Room Air Weight: 174 lb 13.225 oz Body Mass Index (BMI) 35.9 Intake and Output for Last 24 Hours 01/05/19 01/06/19 01/07/19 23:59 23:59 23:59 Intake Total 3558.35 / 3558.35 3192.80 / 3192.80 Output Total 1725 / 1725 3650 / 3650 Balance 1833.35 / 1833.35 -457.20 / -457.20 Medical Necessity - Tobacco Use Smoking Status: Never smoker Assessment/Plan All Active Problems (Last Reviewed 01/04/19 @ 09:46 by Heena Camargo) Preeclampsia (Acute) bradycardia (Acute) Legally blind (Acute) Segmental and somatic dysfunction of sacral region (Acute) Segmental and somatic dysfunction of thoracic region (Acute) Segmental and somatic dysfunction of cervical region (Acute) Segmental and somatic dysfunction of lumbar region (Acute) (Acute) Abnormal Pap smear of cervix (Acute) Rh negative status during (Acute) Congenital heart defect (Acute) Supervision of normal (Acute) Abdominal pain (Resolved) Elevated blood pressure affecting in third trimester, antepartum (Resolved) Hyperemesis (Resolved) Low lying placenta nos or without hemorrhage, second trimester (Resolved) Pancreatitis (Resolved) Prematurity of fetus (Resolved) s/p LTCS PPD # 1 1. routine post care 2. breast feeding- support given 3. rh negative 4. rubella immune
--- NOTE | 2019-01-07 11:28 | PCM.DCCSEC ---
Discharge Diet: No Restrictions Discharge Activity: May Not Drive - for 2 weeks, May not drive while taking narcotic pain medications., May Shower, May Take a Tub Bath - in 7 days May resume sexual activity in: 4-6 weeks Lifting Restrictions: 20 pounds Additional Activity Instructions:: Nothing in the vagina for 4-6 weeks. You may return to work/school in 6 weeks. Call your doctor if your incision/area has: Continuous Slow Oozing, Sudden Increased Bleeding, Increased Pain/ Swelling, Increased Redness, Foul Smelling Discharge Call your doctor if you observe: Fever of 101 or Higher, Using more than one pad per hour - for 2 hours Suture Line Care: Avoid Pulling/Pushing, Avoid Pinching/Bending Cleanse incision/area with: Keep Dressing Clean & Dry Additional Instructions: If you experience any of the following, contact your healthcare provider. Bleeding that soaks a pad every hour for 2 hours Fever 100.4 or higher Unrelieved incision or abdominal pain Swelling, redness, discharge or bleeding from your incision or episiotomy site Your incision begins to separate Problems urinating (including inability to urinate or burning while urinating). Visual changes Severe headache Flu-like symptoms Pain or redness in one of both of your breasts Pain, warmth, tenderness or swelling in your legs, especially the calf area Frequent nausea and vomiting Symptoms of depression or anxiety If you experience any of the following, call 911 or go to the nearest Emergency Room. Chest pain Problems breathing Seizure activity Partial or complete paralysis of a body part, slurred speech, weakness or drooping of the face, or a sudden inability to walk or hold your balance Allergies/Adverse Reactions: Allergies No Known Allergies Allergy (Verified 01/05/19 07:30) Medications to take at Discharge Pnv No.95/Ferrous Fum/Folic AC [ Formula] 1 ea PO DAILY 05/21/18 Ondansetron HCl [Zofran] 4 mg PO 4X/DAY PRN PRN #60 tab 05/22/18 citalopram 40 mg tablet 40 mg PO DAILY #30 tab 09/23/18 miscellaneous medical supply misc See Rx Instructions .ROUTE .MEDSUPPLY #1 ea 12/15/18 cyclobenzaprine 10 mg tablet 10 mg PO TID PRN #30 tab 12/28/18 Ibuprofen [Motrin] 600 mg PO Q6H PRN PRN #30 tab 01/07/19 Oxycodone HCl/Acetaminophen [Percocet 5-325] 1 - 2 tablet PO Q4H PRN PRN 7 Days #28 tablet 01/07/19 The following prescriptions were given: Ibuprofen [Motrin] 600 mg PO Q6H PRN PRN #30 tab PRN Reason: Pain Transmission Status: Pending to [facility] Oxycodone HCl/Acetaminophen [Percocet 5-325] 1 - 2 tablet PO Q4H PRN PRN 7 Days #28 tablet PRN Reason: Moderate-Severe pain Transmission Status: Sent to [facility] Follow-Up: Call to make an appointment with your doctor for an incision check in 1-2 weeks. You will also need a 6 week post- follow up appointment. Test results from this visit will be discussed in further detail at your follow-up appointment, if applicable. Please Follow Up With: Marilyn Arellano MD - Call to make an appointment for an incision check in 1-2 [phone] When: You will need a post- check in 6 weeks. Primary Care Physician: Izabel Kurtz PA [Primary Care Provider] -
[2019-01-07] MEDS: Ondansetron ODT 4 MG Tablet PO (13:35)
[2019-01-07 13:40] VITALS: BP 128/75; PULSE 120; RESP 18; TEMP 36.1
[2019-01-08 09:04] LABS: Kleihauer-Betke Negative
== END 2019-01-07 14:05 | disposition home or self-care (01) | DRG 540 ==
PROVIDERS: Admitting Provider Obstetrics & Gynecology; Family Provider Physician Assistant Medical; PCP Physician Assistant Medical; Referring Provider Obstetrics & Gynecology; Visit Provider Obstetrics & Gynecology
DX: O76 Abnormality in fetal heart rate and rhythm complicating labor and delivery (principal); O14.94 Unspecified pre-eclampsia, complicating childbirth; Q24.9 Congenital malformation of heart, unspecified; H54.8 Legal blindness, as defined in USA; M99.04 Segmental and somatic dysfunction of sacral region; M99.02 Segmental and somatic dysfunction of thoracic region; M99.03 Segmental and somatic dysfunction of lumbar region; M99.01 Segmental and somatic dysfunction of cervical region; Z3A.39 39 weeks gestation of pregnancy; O69.3XX0 Labor and delivery complicated by short cord, not applicable or unspecified; Z37.0 Single live birth; Z67.91 Unspecified blood type, Rh negative; K21.9 Gastro-esophageal reflux disease without esophagitis
CPT/HCPCS: 36415; 59025; 59050; 80053; 82570; 84156; 85025; 85460; 85461; 86850; 86900; 86901; 90384; 99218; J7120; A4216; G0378; J2405; J2790

== ENCOUNTER → 2019-02-09 15:12 | Outpatient (REF) | payer MEDICAID, SELFPAY ==
[2019-02-03 15:26] VITALS: BMI 35.9
== END ==
LOC: HPRAD 15:12
PROVIDERS: Family Provider Physician Assistant Medical; PCP Physician Assistant Medical; Referring Provider Chiropractor; Visit Provider Chiropractor
DX: M99.03 Segmental and somatic dysfunction of lumbar region (principal)
CPT/HCPCS: 72110

== ENCOUNTER → 2019-02-25 15:07 | Outpatient (CLI) | payer MEDICAID, SELFPAY ==
[2019-02-25 14:43] VITALS: BMI 35.9
[2019-02-25 16:11] LABS: T4 Free Direct 0.86 ng/dL (0.76-1.46); Thyroid Stim Hormone (TSH) 1.94 uIU/mL (0.358-3.74)
[2019-03-05 13:40] LABS: HPV Reflexed? NOT INDICATED
== END ==
PROVIDERS: Family Provider Physician Assistant Medical; PCP Physician Assistant Medical; Referring Provider Obstetrics & Gynecology; Visit Provider Obstetrics & Gynecology
DX: Z12.4 Encounter for screening for malignant neoplasm of cervix (principal)
CPT/HCPCS: 36415; 84439; 84443; 88175; G0145

== ENCOUNTER 2020-06-24 23:14 | Emergency (ER) | payer MEDICAID, SELFPAY ==
[2020-06-24 23:14] VITALS: PULSE 88; RESP 16; TEMP 36; O2SAT 96; BMI 33.8
[2020-06-24 23:16] VITALS: BP 128/77; PULSE 88; RESP 16; TEMP 36; O2SAT 96
[2020-06-24 23:18] VITALS: BP 128/77
[2020-06-24] MEDS: 0.9% Normal Saline 1,000 ML 1000 ML IV (23:37)
[2020-06-24] MEDS: Ondansetron 4 MG/2 ML Vial IV (23:38)
[2020-06-24] MEDS: Morphine 4 MG/ML Syringe IV (23:38)
--- NOTE | 2020-06-24 23:39 | ED.VISSUMM ---
- ER Visit Summary Date of Service: 06/24/20 Chief Complaint: Abdominal pain, vomiting, and diarrhea History of Present Illness: The patient is a 30 F whose primary care physician is in [place]. She reports that at 4:00 this afternoon she drank a smoothie. Approximately 2 hours later she developed abdominal pain, vomiting, diarrhea. She states it is a cramping abdominal pain is worse in the epigastric region. Stated 10 severity. Nothing makes this better or worse. She is vomited multiple times. No blood in her emesis. She had multiple episodes of dark brown diarrhea. She denies any blood in her stools or black tarry stools. No dysuria or frequency. She states that she had this multiple times in the past. Patient denies sick contacts. Has not been camping out of the country. Does not drink well water. No recent antibiotic use. Physical Examination: Vitals: Stable. Afebrile. General: Well-nourished and well-developed. Head: Normocephalic atraumatic. Neck: Supple, no lymphadenopathy. No JVD. Nontender. Cardiovascular: Regular rate and rhythm. No murmurs. Respiratory: No respiratory distress. Clear to auscultation bilaterally. Abdominal: Soft, mild diffuse tenderness palpation is worst in the epigastric region, nondistended, normal bowel sounds. No guarding, rebound, or peritoneal signs. Back: Nontender. Extremities: Nontender, no edema. Skin: Normal color, no rash. Neurologic: Alert and oriented ?3. Cranial nerves II through XII are intact. Normal strength and sensation. Psych: Normal affect. Test Results: BC shows a white count of 11.5 with 88 segmented neutrophils, 6 lymphocytes, immature granulocytes 1.7%. I suspect this is demargination from the vomiting. Chem-7 is normal. LFTs show an AST of 12. Lipase is 129. test is negative. Emergency Department Course and Treatment: Patient had an IV placed. She is given a liter normal saline. She is given Zofran and morphine IV. She is resting more comfortably. Treatment Plan: Patient will be discharged with Zofran. Instructed to push fluids. Follow-up with her primary care physician 1 to 2 days if not improving. Return to the emergency department for any worsening symptoms. Disposition: To home in improved and stable condition. Impression: 1. Vomiting/diarrhea. This note was generated with Logic[employer] dictation software. It may contain incorrect words, spelling, and punctuation that were not noted in review of the chart prior to signing ED Disposition - Plan for ED Patient: Instructions: ED Vomiting and Diarrhea ... Prescriptions: Ondansetron [Zofran Odt] 4 mg PO Q8H PRN PRN #10 tablet PRN Reason: Nausea Referrals: Izabel Kurtz PA [Primary Care Provider] - 1-2 Days if not improving
[2020-06-24 23:42] LABS: Absolute Lymphocyte Count 0.64 X10^3/uL (0.83-4.51); Absolute Neutrophil Count 10.1 X10^3/uL (2.0-7.7); Basophil# 0.05 X10^3/uL; Basophil% 0.4 % (0-1); Eosinophil# 0.04 X10^3/uL; Eosinophils% 0.3 % (0-5); Hematocrit 45.1 % (37-47); Hemoglobin 14.9 g/dL (12.0-15.0); Lymphocyte # 0.64 X10^3/ul (4.0); Lymphocyte % 5.6 % (19-41); Mean Corpuscular Hgb 30.3 pg (27.0-32.0); Mean Corpuscular Volume 91.7 fL (81-99); Mean Platelet Vol. 8.8 fl (6.2-12.0); Monocyte# 0.45 X10^3/uL; Monocyte% 3.9 % (0-10); NRBC Flagged by Analyzer 0 % (0-5); Neutrophil # 10.14 X10^3/uL (2.7-7.7); Neutrophil % 88.1 % (47-70); Platelet Count 345 K/mm3 (150-450); RBC Distribution Width CV 12.5 % (11.6-14.6); RBC Distribution Width SD 42.2 fl (35.1-43.9); Red Blood Count 4.92 M/mm3 (4.2-5.4); White Blood Count 11.5 K/mm3 (4.4-11.0)
[2020-06-24 23:56] LABS: AST(SGOT) 12 U/L (15-37); Alanine Aminotransfer ALT/SGPT 28 U/L (13-56); Albumin, Serum 4.3 g/dL (3.2-5.0); Alkaline Phosphatase 76 U/L (45-117); Anion Gap 10 (5-15); BUN 16 mg/dL (7-18); BUN/Creat Ratio 18.5 RATIO (10-20); Calcium,Total 9.4 mg/dL (8.5-10.1); Chloride 104 mmol/L (98-107); Creatinine, Serum 0.86 mg/dL (0.55-1.02); EST Glomerular Filtration Rate 83 mL/min (>60); Est Glom Filt Rate - Afr Amer 100 mL/min (>60); Globulin 4.1 g/dL (2.2-4.2); Glucose 106 mg/dL (74-106); Lipase 129 U/L (73-393); Potassium 4.1 mmol/L (3.5-5.1); Protein, Total 8.4 g/dL (6.4-8.2); Sodium Level 140 mmol/L (136-145)
[2020-06-24 23:59] LABS: Internal QC Validated? YES +Cl - CLEAR BKGD; Pregnancy, Serum, hCG Quali. NEGATIVE Negative
== END 2020-06-25 00:44 | disposition home or self-care (01) ==
LOC: ED 06-25 00:12
PROVIDERS: Emergency Provider Emergency Medicine; PCP Physician Assistant Medical
DX: R11.2 Nausea with vomiting, unspecified (principal); R19.7 Diarrhea, unspecified; R10.13 Epigastric pain
CPT/HCPCS: 80053; 83690; 84703; 85025; 96361; 96374; 96375; 99283; J2405

== ENCOUNTER → 2020-08-22 13:05 | Outpatient (CLI) | payer MEDICAID, SELFPAY ==
--- NOTE | 2020-08-22 13:14 | MRI_ITS ---
STUDY: MRI RIGHT ANKLE WITHOUT CONTRAST REASON FOR EXAM: Female, 30 years old. ANKLE SPRAIN, IMPINGEMENT OF ANKLE JOINT TECHNIQUE: Standardized fat and water weighted pulse sequences were obtained in all 3 orthogonal planes. COMPARISON: None. FINDINGS: Normal subcutis adipose space. A small ankle joint effusion is present. No visualized marrow edema or osteochondral defect or fracture. Normal posterior tibialis tendon. Normal flexor digitorum longus tendon. Normal flexor hallucis longus tendon. Normal peroneus longus and brevis tendons. Normal tibialis anterior tendon. Normal extensor hallucis longus tendon. Normal extensor digitorum longus tendons. Normal Achilles tendon and teno-osseous insertion. Normal plantar fascia. Normal plantar calcaneal tubercles. Normal intrinsic muscles of the rearfoot. Normal distal tibiofibular syndesmotic ligamentous complex. Normal lateral ligamentous complex. Normal subtalar ligaments and sinus tarsi. Normal deltoid ligamentous complexes. Normal plantar calcaneonavicular (spring) ligament. Normal tibiotalar articulation. Normal talar dome. Normal subtalar articulations. Normal talonavicular articulation. Normal calcaneocuboid articulation. Normal navicular-cuneiform articulations. MRI/Lower Ext Joint Only (Routine) IMPRESSION: 1. A small ankle joint effusion is present. No visualized marrow edema or osteochondral defect or fracture. Electronically Signed: Tan Schofield MD at 23:38 EDT , Service support ,
== END ==
PROVIDERS: PCP Nurse Practitioner Family
DX: M25.871 Other specified joint disorders, right ankle and foot (principal); S93.411A Sprain of calcaneofibular ligament of right ankle, initial encounter
CPT/HCPCS: 73721

== ENCOUNTER → 2020-09-11 16:27 | Outpatient (CLI) | payer MEDICAID, SELFPAY ==
[2020-09-11 14:51] VITALS: BMI 33.8
[2020-09-14 16:27] LABS: HPV Reflexed? NOT INDICATED
== END ==
PROVIDERS: PCP Nurse Practitioner Family; Visit Provider Obstetrics & Gynecology
DX: Z12.4 Encounter for screening for malignant neoplasm of cervix (principal)
CPT/HCPCS: 88175; G0145

== ENCOUNTER → 2020-11-02 14:15 | Outpatient (CLI) | payer MEDICAID, SELFPAY ==
--- NOTE | 2020-11-02 | IMM_PTH ---
PATIENT: CARMEN AQUINO LOC: [facility] U#:[id number] AGE/SX: 34/F ROOM: RE11/02/[address]: Dr. Cristel Spears MD : 1990 BED: DIS: SPEC #: [id number] RECD: 11/06/20 14:30 STATUS: DEMETRICE RELaura #: [id number] MAXINE: 11/02/20 00:[address]: Cristel Spears DEPT: IMMUNOHISTOCHEMISTRY RECD BY: Lillie Nguyen ENTERED: 11/06/20 14:31 SP TYPE: IMMUNO OTHR DR: Esther Heart, STOCK REPAIRER-C Tissues: B - Uterine cervix, NOS Procedures: p16 (initial) KI-67 (add) PHYSICIAN & INSTITUTION [place] [id number] SPECIMEN INFORMATION: Tissue Source: B ? Cervix at 12 and 5 o?clock Clinical Info: ERIKA Specimen Number: [id number] CPT code: 80031, 33357 METHODOLOGY: Deparaffinized sections of prefer/formalin-fixed tissue or PAP/DQ stained slides are incubated with monoclonal/polyclonal antibodies/oligonucleotide probes. Localization is made via biotin free immunoperoxidase method. Appropriate controls are performed and reacted as expected. Results on target cell population are indicated in the following table: RESULTS: ANTIBODY / CLONE RESULT Block B P16 (E6H4) positive, focal block staining Ki-67 (30-9) positive, moderate These tests were developed and their performance characteristics determined by [facility]. They may not have been cleared or approved by the U.S. Food and Drug Administration. The FDA has determined that such clearance or approval is not necessary. The above immunohistochemical/dualISH markers are ordered and reviewed by the Pathologist. INTERPRETATION: B. Cervix at 12 and 5 o?clock, biopsy: Focal moderate squamous dysplasia. TAMEKA:michelle 11/07/2020 Case has been reviewed in consultation with Dr. Ferrara who concurs with the above diagnosis. IDC:AM
[2020-11-02 15:02] VITALS: BMI 32.5
--- NOTE | 2020-11-02 15:15 | ECC_PTH ---
PATIENT: CARMEN AQUINO LOC: [facility] U#:[id number] AGE/SX: 34/F ROOM: RE11/02/[address]: Dr. Cristle Spears MD : 1990 BED: DIS: SPEC #: [id number] RECD: 11/02/20 17:10 STATUS: DEMETRICE KARYN #: [id number] MAXINE: 11/02/20 15:[address]: Cristel Spears DEPT: SURGICAL PATHOLOGY RECD BY: Alee Soriano ENTERED: 11/03/20 09:08 SP TYPE: ECC KESHA DR: Esther Heart, OPTICAL SALES ASSOCIATE-C Tissues: A - Endocervical B - Uterine cervix, NOS Procedures: Surgery Specimen Level IV HEADER OPERATION: Colposcopy PRE-OP DIAGNOSIS: LGSIL TISSUE SUBMITTED: A ? ECC, B ? 12 and 5 o?clock MICROSCOPIC DIAGNOSIS A. ECC: Fragments of benign endocervical epithelium, negative for dysplasia. B. 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 Chronic inflammation. See comment. TAMEKA:michelle 11/06/2020 COMMENT B. Immunohistochemistry ([id number]) for surrogate HPV marker (p16) supports the above diagnosis. This case has been reviewed in consultation with Dr. Ferrara who concurs with the above diagnosis. MICROSCOPIC DESCRIPTION Slides are reviewed. GROSS DESCRIPTION A - Received in fixative is one container labeled with the patient's name and designated ECC. The specimen consists of a scant amount of soft tissue. The specimen is totally submitted for cell block preparation. B - Received in fixative is one container labeled with the patient's name and designated 12 and 5 o'clock. The specimen consists of multiple irregular fragments of light nelson soft tissue that in aggregate measure 0.8 x 0.4 x 0.3 cm. The specimen is totally submitted in one cassette. / TAMEKA:michelle 11/03/20 TC:1 CPT: 87132 x2
== END ==
PROVIDERS: PCP Nurse Practitioner Family; Visit Provider Obstetrics & Gynecology
DX: R87.612 Low grade squamous intraepithelial lesion on cytologic smear of cervix (LGSIL) (principal)
CPT/HCPCS: 88305; 88341; 88342

== ENCOUNTER → 2021-02-26 09:38 | Outpatient (CLI) | payer OTHER, MEDICAID, SELFPAY ==
[2021-02-26 10:23] LABS: hCG Titer Quant., Serum < 1 mIU/mL (1-3)
== END ==
PROVIDERS: PCP Nurse Practitioner Family; Referring Provider Obstetrics & Gynecology; Visit Provider Obstetrics & Gynecology
DX: O20.0 Threatened abortion (principal); Z3A.00 Weeks of gestation of pregnancy not specified
CPT/HCPCS: 36415; 84702; 86850; 86900; 86901

== ENCOUNTER 2021-04-30 18:41 | Emergency (ER) | payer OTHER, SELFPAY ==
[2021-04-30 18:42] VITALS: BP 127/85; PULSE 78; RESP 14; TEMP 36.8; O2SAT 96; BMI 30.2
--- NOTE | 2021-04-30 19:06 | EDS_ITS ---
HPI History of Present Illness Chief Complaint: Nausea/Vomiting Informant: patient Narrative Narrative: G2, P1 7-week gestation by dates presents with nausea and vomiting throughout the day unable to keep anything down. No hematemesis. No diarrhea. No urinary symptoms. No abnormal vaginal discharge or bleeding. Mild abdominal cramping due to vomiting. Had similar symptoms with her first . She states they are moving to [place] and has an OB appointment on the ninth of next month. Denies fever cough. States had prescriptions for Phenergan from her last for which she did well on. Reports had 5 home test that were positive. 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 squamous intraepithelial lesion (LGSIL) Home Medications ferrous sulfate 325 mg PO DAILY 06/24/20 [History Last Taken Unknown] citalopram 40 mg tablet 40 mg PO DAILY #90 tablet 10/10/20 [Rx Last Taken Unknown] doxylamine-pyridoxine (vit B6) [Diclegis] 1 tab PO QHS #30 tab 04/30/21 [Rx Last Taken Unknown] promethazine 25 mg PO Q6H PRN #20 tab 04/30/21 [Rx Last Taken Unknown] promethazine [Promethegan] 25 mg [place] Q6H PRN PRN #10 tab 04/30/21 [Rx Last Taken Unknown] Allergy/AdvReac Type Severity Reaction Status Date / Time Penicillins Allergy Hives Verified 04/30/21 18:44 Family History Father Heart disease Social History Smoking Status: Never smoker alcohol intake: current details: social substance use type: does not use caffeine: Yes what type of physical activity do you participate in: none seatbelt use: always do you feel safe at home: Yes additional social history: [employer] 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 ROS ROS ED Constitutional Constitutional ED: Denies chills, fever(s) or sweats Eyes Eyes: Denies change in vision ENT ENT ED: Denies dysphagia or sore throat Cardiovascular Cardiovascular: Denies chest pain, leg edema, palpitations or racing heartbeat Respiratory/Chest Respiratory/Chest: Denies cough, dyspnea or dyspnea on exertion Gastrointestinal Gastrointestinal: Reports nausea and vomiting; Denies abdominal pain or diarrhea Genitourinary Genitourinary ED: Denies dysuria, hematuria or urinary frequency Musculoskeletal Musculoskeletal: Denies back pain, extremity pain or neck pain Integumentary Denies rash or wounds Neurologic Neurologic: Denies headache(s), paresthesias or weakness EXAM Physical Exam Const Vital Signs: 04/30/21 18:42 04/30/21 19:50 04/30/21 21:52 Temperature 98.2 F Temperature Source Temporal Pulse Rate 78 80 Respiratory Rate 14 18 14 Blood Pressure 127/85 H Blood Pressure Mean 99 Pulse Ox 96 Oxygen Delivery Method Room Air Positive well nourished and well developed General Appearance ED: well developed and NAD HEENT Reports moist mucous membranes normocephalic and atraumatic Eyes PERRL, EOMs intact bilaterally and conjunctivae normal General Eye ED: Yes normal appearance of both eyes Neck no lymphadenopathy and supple General: Negative for tenderness Chest Wall Chest: Negative for tenderness Resp normal respiratory effort and normal air movement Effort and Inspection: symmetric chest movement; Negative for respiratory distress Cardio regular rate, regular rhythm and no murmurs Peripheral Pulses: pulses 2+ throughout GI normal to inspection, nondistended, normoactive bowel sounds and non-tender Palpation: Negative for guarding or rebound tenderness present Back/Spine no CVA tenderness and no thoracic nor lumbar tenderness Extremity normal to inspection General Extremety ED: Negative for edema or tenderness General Extremity: Negative for edema Neuro oriented x3 and no sensory deficits noted Sensorium / Orientation: awake and alert Skin no rashes or lesions noted and no wounds MDM MDM MDM Narrative Medical decision making narrative: Patient with nonsurgical abdomen. No pelvic pain. Vomiting throughout the day with . IV was placed given IV fluids electrolytes were normal. Urine noted small amount of ketones. hCG quant obtained at 43,209. Initial order for Reglan however she declined this stating causes her to be shaky. She agreed with IM Phenergan. Nausea was improving. She is able to tolerate oral intake. Prescription for oral and suppository Phenergan's. Also written for Diclegis to use at night. She is moving to [place] and being established with OB for their upcoming couple weeks. Patient is being discharged under pandemic conditions under declared global, national and state disaster activation, with limited medical resources. Patient and community understands this. Results discussed in layman's terms to the patient satisfaction. All questions answered in layman's terms. Patient understands importance of follow-up care as directed. Patient has been instructed to return to the ED immediately if new symptoms, problems, or questions occur. We mutually agree with the plan of disposition. The patient understand that they may call or return with any questions or concerns at any time. Lab Data Attestation: I reviewed the patient's lab results. Labs: Laboratory Results - last 24 hr 04/30/21 04/30/21 04/30/21 19:30 19:30 19:30 Sodium 135 L Potassium 3.8 Chloride 103 Carbon Dioxide 25.0 Anion Gap 7 BUN 11 Creatinine 0.75 Estim Creat Clear Calc 119.88 Est GFR (MDRD) Af Amer 117 Est GFR (MDRD) Non-Af 97 BUN/Creatinine Ratio 14.6 Glucose 83 Calcium 9.4 HCG, Quant 78135 H Urine Color Yellow Urine Clarity Clear Urine pH 8.0 Ur Specific [place] 1.015 Urine Protein 15 H Urine Glucose (UA) Normal Urine Ketones 50 H Urine Occult Blood Negative Urine Nitrite Negative Urine Bilirubin Negative Urine Urobilinogen 1 H Ur Leukocyte Esterase Negative Urine RBC 0 SEEN Urine WBC 0-5 SEEN Ur Squamous Epith Cells 10-25 SEEN Urine Bacteria RARE Urine Mucus 0 SEEN Discharge Plan Triage Chief Complaint: Nausea/Vomiting ED Provider: Kapil Olivo Dx/Rx/DC Orders Clinical Impression: , Vomiting during Instructions: ED Hyperemesis Gravidarum, ED Established ... Prescriptions: New promethazine 25 mg tablet 25 mg PO Q6H PRN (Reason: nausea and vomiting) Qty: 20 RF: 0 promethazine [Promethegan] 25 mg suppository 25 mg [place] Q6H PRN PRN (Reason: nausea and vomiting) Qty: 10 RF: 0 doxylamine-pyridoxine (vit B6) [Diclegis] 10-10 mg tablet,delayed release (DR/EC) 1 tab PO QHS Qty: 30 RF: 0 No Action ferrous sulfate 325 MG tablet 325 mg PO DAILY RF: 0 citalopram 40 mg tablet 40 mg PO DAILY Qty: 90 RF: 4 Primary Care Provider: Esther Heart Referrals: Esther Heart, COMPENSATION AND BENEFITS ANALYST-C [Primary Care Provider] - Activity Restrictions/Additional Instructions: Your hCG quant is 43,209 today. Continue oral fluids. Prescription medications written to use as needed. Follow-up with your OB. Disposition Disposition: Home, Self Care Discharge Date/Time: 04/30/21 21:52
[2021-04-30] MEDS: 0.9% Normal Saline 1,000 ML 1000 ML IV (19:35)
[2021-04-30 19:39] LABS: Mucous, Urine 0 SEEN /hpf (<or=2+); Red Blood Cells-Urine 0 SEEN /hpf (0-5)
[2021-04-30] MEDS: proMETHazine 25 MG/ML Syringe IM (19:47)
[2021-04-30 19:50] VITALS: RESP 18
[2021-04-30 19:56] LABS: Color, Urine Yellow (Yellow); Glucose, Dipstick Normal (Normal); Ketone-Dipstick 50 mg/dl (Negative); Leukocyte Esterase-Dipstick Negative /ul (Negative); Nitrite-Dipstick Negative (Negative); Occult Blood-Urine Negative /ul (Negative); Protein-Dipstick 15 mg/dl (Negative); Specific Gravity, Urine 1.015 (1.002-1.030); Urine Bilirubin Dipstick Negative (Negative); Urine Clarity Clear (Clear); Urine Urobilinogen 1 mg/dl (Normal)
[2021-04-30 20:08] LABS: Bacteria RARE /hpf (None Seen); Squamous Epithelial Cells - UA 10-25 SEEN /hpf (5-10)
[2021-04-30 20:09] LABS: White Blood Cells 0-5 SEEN /hpf (0-5)
[2021-04-30 20:11] LABS: Anion Gap 7 (5-15); BUN 11 mg/dL (7-18); BUN/Creat Ratio 14.6 RATIO (10-20); Calcium,Total 9.4 mg/dL (8.5-10.1); Chloride 103 mmol/L (98-107); Creatinine, Serum 0.75 mg/dL (0.55-1.02); EST Glomerular Filtration Rate 97 mL/min (>60); Est Glom Filt Rate - Afr Amer 117 mL/min (>60); Estimated Creatinine Clearance 119.88 ml/min; Glucose 83 mg/dL (74-106); Potassium 3.8 mmol/L (3.5-5.1); Sodium Level 135 mmol/L (136-145)
[2021-04-30 21:52] VITALS: PULSE 80; RESP 14
== END 2021-04-30 21:52 | disposition home or self-care (01) ==
PROVIDERS: Emergency Provider Emergency Medicine; PCP Nurse Practitioner Family; Visit Provider Emergency Medicine
DX: O21.0 Mild hyperemesis gravidarum (principal); Z3A.01 Less than 8 weeks gestation of pregnancy; Z79.899 Other long term (current) drug therapy
CPT/HCPCS: 80048; 81001; 84702; 96361; 96372; 96374; 99282; J7030; A4216